=== PATIENT | male | born 1950 | race African-American/Black ===

== ENCOUNTER → 2019-10-20 10:35 | Outpatient (BNVA) | payer MEDICARE, MEDICAID, SELFPAY | PROVIDERS: Family Provider Internal Medicine; PCP Internal Medicine; Visit Provider Specialist | DX: G40.309 Generalized idiopathic epilepsy and epileptic syndromes, not intractable, without status epilepticus (principal); F17.220 Nicotine dependence, chewing tobacco, uncomplicated | CPT/HCPCS: 99212 ==

== ENCOUNTER → 2020-04-19 08:04 | Outpatient (BNVA) | payer MEDICARE, MEDICAID, SELFPAY | PROVIDERS: Family Provider Internal Medicine; PCP Internal Medicine; Visit Provider Specialist | DX: G40.309 Generalized idiopathic epilepsy and epileptic syndromes, not intractable, without status epilepticus (principal) | CPT/HCPCS: 99213 ==

== ENCOUNTER → 2020-10-18 09:15 | Outpatient (BNVA) | payer MEDICARE, MEDICAID, SELFPAY | PROVIDERS: Family Provider Internal Medicine; PCP Internal Medicine; Visit Provider Specialist | DX: G40.309 Generalized idiopathic epilepsy and epileptic syndromes, not intractable, without status epilepticus (principal); F17.220 Nicotine dependence, chewing tobacco, uncomplicated | CPT/HCPCS: 99213 ==

== ENCOUNTER → 2021-04-20 09:02 | Outpatient (BNVA) | payer MEDICARE, MEDICAID, SELFPAY | PROVIDERS: Family Provider Internal Medicine; PCP Internal Medicine; Visit Provider Specialist | DX: G40.309 Generalized idiopathic epilepsy and epileptic syndromes, not intractable, without status epilepticus (principal); F84.0 Autistic disorder | CPT/HCPCS: 99213; 99214 ==

== ENCOUNTER 2021-07-21 14:55 | Outpatient (CLI) | payer MEDICARE, MEDICAID, SELFPAY ==
--- NOTE | 2021-07-21 15:09 | XR_ITS ---
WS: [id number] XR chest 1V [id number] REASON FOR EXAM: Z20.1 - Contact with and (suspected) exposure to tubercul... FINDINGS: Significantly rotated positioning. Mild tortuosity thoracic aorta. Heart at the upper limits of normal. Calcified granulomatous disease in both hemithoraces. Infiltrative changes in the lung bases seen on 04/03/2019 have resolved. No new chest findings are angela ntified. XR/XR chest 1V [id number] IMPRESSION: No active pulmonary disease.
== END 2021-07-21 14:56 | disposition home or self-care (01) ==
PROVIDERS: PCP Internal Medicine; Visit Provider Internal Medicine
DX: Z20.1 Contact with and (suspected) exposure to tuberculosis (principal)
CPT/HCPCS: 71045

== ENCOUNTER → 2021-10-25 09:49 | Outpatient (BNVA) | payer MEDICARE, MEDICAID, SELFPAY | PROVIDERS: PCP Internal Medicine; Visit Provider Specialist | DX: G40.309 Generalized idiopathic epilepsy and epileptic syndromes, not intractable, without status epilepticus (principal); F84.0 Autistic disorder | CPT/HCPCS: 99213 ==

== ENCOUNTER → 2022-05-30 10:17 | Outpatient (BNVA) | payer MEDICARE, MEDICAID, SELFPAY | PROVIDERS: PCP Internal Medicine; Visit Provider Specialist | DX: G40.309 Generalized idiopathic epilepsy and epileptic syndromes, not intractable, without status epilepticus (principal) | CPT/HCPCS: 99213 ==

== ENCOUNTER 2022-08-09 09:34 | Outpatient (CLI) | payer MEDICARE, MEDICAID, SELFPAY ==
--- NOTE | 2022-08-09 | XR_ITS ---
WS: [id number] Exam: XR chest 2V* [id number] Date/Time of Exam: 08/09/2022 10:05 AM Reason For Exam: TB SCREENING Comparison 07/21/2021 and 04/03/2019 Chronic interstitial changes in the left lower lobe. No acute infiltrates are noted. The lungs are fu lly inflated. No pleural effusions. Cardiomediastinal silhouette is unremarkable for technique. Bony structures are intact. Slight dextroscoliosis of the T-spine. XR/XR chest 2V* [id number] IMPRESSION: 1. Chronic interstitial changes in the left lower lobe. 2. No acute cardiopulmonary finding.
== END 2022-08-09 09:35 | disposition home or self-care (01) ==
LOC: RAD 09:52
PROVIDERS: PCP Family Medicine; Visit Provider Family Medicine
DX: Z11.1 Encounter for screening for respiratory tuberculosis (principal)
CPT/HCPCS: 71046

== ENCOUNTER → 2022-12-05 10:43 | Outpatient (BNVA) | payer MEDICARE, MEDICAID, SELFPAY | PROVIDERS: PCP Family Medicine; Visit Provider Specialist | DX: G40.309 Generalized idiopathic epilepsy and epileptic syndromes, not intractable, without status epilepticus (principal) | CPT/HCPCS: 99213 ==

== ENCOUNTER → 2023-02-26 13:36 | Outpatient (BNVA) | payer MEDICARE, MEDICAID, SELFPAY | PROVIDERS: PCP Family Medicine; Visit Provider Podiatrist Foot & Ankle Surgery | DX: I73.9 Peripheral vascular disease, unspecified (principal); E11.42 Type 2 diabetes mellitus with diabetic polyneuropathy; L60.8 Other nail disorders; B35.1 Tinea unguium; G62.9 Polyneuropathy, unspecified | CPT/HCPCS: 11721; 99203 ==

== ENCOUNTER → 2023-05-07 08:41 | Outpatient (BNVA) | payer MEDICARE, MEDICAID, SELFPAY | PROVIDERS: PCP Family Medicine; Visit Provider Podiatrist Foot & Ankle Surgery | DX: E11.42 Type 2 diabetes mellitus with diabetic polyneuropathy (principal); B35.1 Tinea unguium; G62.9 Polyneuropathy, unspecified; I73.9 Peripheral vascular disease, unspecified | CPT/HCPCS: 11721 ==

== ENCOUNTER → 2023-07-09 09:00 | Outpatient (BNVA) | payer MEDICARE, MEDICAID, SELFPAY | PROVIDERS: PCP Family Medicine; Visit Provider Podiatrist Foot & Ankle Surgery | DX: B35.1 Tinea unguium (principal); G62.9 Polyneuropathy, unspecified; I73.9 Peripheral vascular disease, unspecified; E11.42 Type 2 diabetes mellitus with diabetic polyneuropathy | CPT/HCPCS: 11721 ==

== ENCOUNTER 2023-08-29 11:46 | Outpatient (CLI) | payer MEDICARE, MEDICAID, SELFPAY ==
[2023-08-29 12:26] LABS: Calcium 10.5 mg/dL (8.5-10.5)
[2023-08-29 12:33] LABS: Parathyroid Hormone 18.5 pg/mL (15-65)
== END 2023-08-29 11:47 | disposition home or self-care (01) ==
PROVIDERS: PCP Family Medicine; Visit Provider Internal Medicine Nephrology
DX: E83.52 Hypercalcemia (principal); I12.9 Hypertensive chronic kidney disease with stage 1 through stage 4 chronic kidney disease, or unspecified chronic kidney disease; N18.9 Chronic kidney disease, unspecified; D64.9 Anemia, unspecified; N39.0 Urinary tract infection, site not specified
CPT/HCPCS: 82310; 83970

== ENCOUNTER → 2023-09-17 08:46 | Outpatient (BNVA) | payer MEDICARE, MEDICAID, SELFPAY | PROVIDERS: PCP Family Medicine; Visit Provider Podiatrist Foot & Ankle Surgery | DX: B35.1 Tinea unguium (principal); G62.9 Polyneuropathy, unspecified; I73.9 Peripheral vascular disease, unspecified; E11.42 Type 2 diabetes mellitus with diabetic polyneuropathy | CPT/HCPCS: 11721 ==

== ENCOUNTER 2024-06-14 09:26 | Inpatient (IN) | payer MEDICARE, MEDICAID, SELFPAY ==
[2024-06-14] VITALS (45 sets, daily range): BP systolic 109–150; BP diastolic 52–90; PULSE 78–103; RESP 22–50; TEMP 37.3–37.4; O2SAT 67–97; BMI 27.8
--- NOTE | 2024-06-14 09:32 | XRR_ITS ---
PROCEDURE INFORMATION: Exam: XR Chest Exam date and time: 06/14/2024 9:54 AM Age: 74 years old Clinical indication: Cough and dyspnea; Additional info: Dyspnea/cough TECHNIQUE: Imaging protocol: Radiologic exam of the chest. Views: 1 view. COMPARISON: CR XR chest 2V* [id number] 08/09/2022 10:04 AM FINDINGS: Lungs: There is an area of dense consolidation involving the right upper lobe. Less dense consolidation involves the left lung base. Pleural spaces: Unremarkable. No pleural effusion. No pneumothorax. Heart/Mediastinum: Unremarkable. No cardiomegaly. Bones/joints: Unremarkable. XR/XR chest 1V portable [id number] IMPRESSION: Bilateral pneumonia
--- NOTE | 2024-06-14 09:56 | ED_ITS ---
HPI - SOB/Dyspnea 2 General: Chief Complaint: Shortness of Breath/Dyspnea Stated Complaint: SOB Time Seen by Provider: 06/14/24 09:32 History of Present Illness: HPI Narrative: 74-year-old [facility] patient lives in a custodial presenting short of breath for the last 2 to 3 days spiked a fever overnight he seemed to struggle with his breathing. Patient was brought in by EMS on their arrival he was hypoxic. Previously sats improved to 90% with increased 4 L and is satting in the mid 90s. 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 History from old records and from caregivers. He was potentially exposed to a patient with COVID as well. Associated symptoms: Reports chest congestion and fever(s); Deny abdominal pain Related Data Home Medications Medication Instructions Recorded Confirmed loperamide 1 mg/5 mL oral liquid 2 mg PO Q4H 10/20/19 03/15/24 neomycin-bacitracn Zn-polymyxn 3.5 1 applic topical ONCE PRN 10/20/19 03/15/24 mg-400 unit-5,000 unit top oint pkt (Neosporin([id number])) Previous Rx's Medication Instructions Recorded diphth,pertus(acell),tetanus 2.5 0.5 ml IM ONCE #0.5 mL 08/03/20 Lf unit-8 mcg-5 Lf/0.5 mL IM susp dextromethorphan-guaifenesin 10 See Rx Instructions .Route 10/30/22 mg-100 mg/5 mL oral syrup (Robafen .COMPLEX #1,000 mL DM Cough-Chest Congestion) dextromethorphan-guaifenesin 10 See Rx Instructions .Route 10/31/22 mg-100 mg/5 mL oral syrup (Robafen .COMPLEX #1,000 mL DM Cough-Chest Congestion) magnesium hydroxide 400 mg/5 mL See Rx Instructions .Route 11/09/22 oral suspension (Milk of Magnesia) .COMPLEX #3,000 mL aluminum-mag hydroxide-simethicone See Rx Instructions .Route 07/05/23 200 mg-200 mg-20 mg/5 mL oral susp .COMPLEX #355 mL (Devi-Lanta) lorazepam 1 mg tablet (Ativan) 1 mg sublingual Q6H PRN seizures 07/26/23 #10 tabs sertraline 50 mg tablet See Rx Instructions .Route 10/02/23 .COMPLEX #30 tabs magnesium oxide 400 mg (241.3 mg See Rx Instructions .Route 01/29/24 magnesium) tablet .COMPLEX #30 tabs calcitonin (salmon) 200 1 spray intranasal (ALT) DAILY 02/27/24 unit/actuation nasal spray #3.7 mL vit no.95-ferrous See Rx Instructions .Route 02/28/24 fumarate 28 mg-folic acid 800 mcg .COMPLEX #30 tabs tablet finasteride 5 mg tablet See Rx Instructions .Route 03/11/24 .COMPLEX #30 tabs loratadine 10 mg tablet See Rx Instructions .Route 03/11/24 .COMPLEX #30 tabs tamsulosin 0.4 mg capsule See Rx Instructions .Route 03/11/24 .COMPLEX #30 caps famotidine 40 mg tablet See Rx Instructions .Route 03/17/24 .COMPLEX #60 tabs levetiracetam 750 mg tablet See Rx Instructions .Route 03/17/24 .COMPLEX #60 tabs trazodone 50 mg tablet See Rx Instructions .Route 03/17/24 .COMPLEX #30 tabs atorvastatin 10 mg tablet See Rx Instructions .Route 03/24/24 .COMPLEX #30 tabs enalapril maleate 20 mg tablet See Rx Instructions .Route 03/24/24 .COMPLEX #60 tabs lamotrigine 200 mg tablet See Rx Instructions .Route 03/24/24 .COMPLEX #60 tabs nifedipine 90 mg tablet,extended See Rx Instructions .Route 04/25/24 release 24 hr .COMPLEX #90 tabs bismuth subsalicylate 262 mg/15 mL See Rx Instructions .Route 04/30/24 oral suspension .COMPLEX #236 mL acetaminophen 325 mg tablet See Rx Instructions .Route 06/10/24 .COMPLEX #120 tabs Allergies Allergy/AdvReac Type Severity Reaction Status Date / Time No Known Allergies Allergy Verified 09/17/23 08:55 Review of Systems 2 Const: Reports: fever(s), fatigue and malaise; Denies: chills Resp: Reports: dyspnea, non-productive cough, wheezing and chest congestion GI: Denies: abdominal pain : Denies: dysuria, urinary frequency or urinary urgency Musc: Denies: neck pain or back pain Skin/Breast: Denies: rash PFSH ED 2 PFSH: Medical History Epilepsy Bilateral deafness HTN (hypertension) Autistic disorder Social History Smoking and tobacco/nicotine status: never used tobacco/nicotine Alcohol intake: never Physical Exam 2 Const: ORIENTATION/CONSCIOUSNESS: Yes awake HENMT: COMMON NORMALS: normocephalic, atraumatic and hearing grossly normal bilaterally HEAD & SCALP: normocephalic and atraumatic Resp: COMMON NORMALS: normal respiratory effort, No retractions and No use of accessory muscles AUSCULTATION: rhonchi and wheezes (Scant) Cardio: COMMON NORMALS: regular rate, regular rhythm and No murmurs present (Cardio) RATE: regular rate RHYTHM: regular rhythm GI: COMMON NORMALS: Soft to palpation and No hepatosplenomegaly present A USCULTATION: Yes normoactive bowel sounds PALPATION: Yes Soft to palpation, No Tenderness to palpation present (GI), No Guarding due to palpation present (GI) and Yes No hepatosplenomegaly present Extremity: COMMON NORMALS: normal to inspection, capillary refill normal, no clubbing, cyanosis or edema, no calf tenderness and no pedal edema Skin: COMMON NORMALS: no rashes or lesions noted GENERAL SKIN EXAM: no rashes or lesions noted Course 2 Vital Signs: Vital signs: Vital Signs Temperature 99.3 F 06/14/24 09:29 Pulse Rate 84 06/14/24 13:45 Respiratory Rate 27 H 06/14/24 09:29 Blood Pressure 134/64 06/14/24 13:45 Pulse Oximetry 96 06/14/24 13:45 Oxygen Delivery Me thod Nasal Cannula 06/14/24 14:15 Oxygen Flow Rate 6 06/14/24 13:45 MDM - SOB/Dyspnea Medical Decision Making Right upper lobe left lower lobe pneumonia. Patient started on Zosyn cultures done respiratory panel did not show COVID or influenza. His white count is 11 6 he is oxygen dependent will admit for pneumonia with acute respiratory failure with hypoxia. Discussed with hospitalist orders written Medical Records I reviewed the patient's medical records. Lab Data I reviewed the patient's lab results. 06/14/24 10:34 06/14/24 10:34 Labs/Radiology: Radiology Impressions Chest X-Ray 06/14/24 09:32 IMPRESSION: Bilateral pneumonia Laboratory Results WBC 11.61 10^3/uL (3.29-11.43) H 06/14/24 10:34 RBC 3.98 10^6/uL (3.85-5.65) 06/14/24 10:34 Hgb 11.40 g/dL (11.27-16.99) 06/14/24 10:34 Hct 34.6 % (37-53) L 06/14/24 10:34 MCV 86.9 fl (82-101) 06/14/24 10:34 MCH 28.6 pg (27-33) 06/14/24 10:34 MCHC 32.9 g/dL (30-55) 06/14/24 10:34 RDW 13.4 % (12.1-15.1) 06/14/24 10:34 Plt Count 229 10^3/cmm (157-399) 06/14/24 10:34 MPV 9.0 fL (7.4-10.4) 06/14/24 10:34 Neut % (Auto) 85.4 % 06/14/24 10:34 Lymph % (Auto) 6.5 % 06/14/24 10:34 [place] % (Auto) 7.2 % 06/14/24 10:34 Eos % (Auto) 0.1 % 06/14/24 10:34 Baso % (Auto) 0.2 % 06/14/24 10:34 Neut # (Auto) 9.91 10^3/uL (1.8-7.7) H 06/14/24 10:34 Lymph # (Auto) 0.8 10^3/uL (0.8-4.8) 06/14/24 10:34 [place] # (Auto) 0.8 10^3/uL (0.2-0.9) 06/14/24 10:34 Eos # (Auto) 0.0 10^3/uL (0.0-0.8) 06/14/24 10:34 Baso # (Auto) 0.0 10^3/uL (0.0-0.1) 06/14/24 10:34 Nucleated RBC % (auto) 0 % 06/14/24 10:34 Nucleated RBCs # 0.0 /100WBC 06/14/24 10:34 Specimen Type Arterial 06/14/24 10:10 Sample Site Brachial, left 06/14/24 10:10 ABG pH 7.41 (7.35-7.45) 06/14/24 10:10 ABG pCO2 40.7 mmHg (35-45) 06/14/24 10:10 ABG pO2 54.9 mmHg (80.0-100.0) L 06/14/24 10:10 ABG PO2/FiO2 Ratio 171 06/14/24 10:10 ABG HCO3 25.8 mmol/L (22-26) 06/14/24 10:10 ABG O2 Saturation 89.3 06/14/24 10:10 ABG Base Excess 1.1 mmol/L (-2.0-2.0) 06/14/24 10:10 Dav Test Pos 06/14/24 10:10 A-a O2 Gradient 16.1 mmHg (5-10) H 06/14/24 10:10 Hematocrit 35.5 % (42-52) L 06/14/24 10:10 Hgb O2 Saturation 86.9 % (95-100) L 06/14/24 10:10 Carboxyhemoglobin 1.0 %THgb (0.4-20.1) 06/14/24 10:10 Methemoglobin 1.7 % (0.4-1.5) H 06/14/24 10:10 Total Hemoglobin 11.6 g/dL (14-18) L 06/14/24 10:10 Sodium 128.0 mmol/L (131-143) L 06/14/24 10:10 Potassium 4.7 mmol/L (3.5-5.0) 06/14/24 10:10 Glucose 313.0 mg/dL (70-115) H 06/14/24 10:10 Ionized Calcium 1.3 mmol/L (1.1-1.4) 06/14/24 10:10 O2 Delivery Device Nc 06/14/24 10:10 O2 Liters/Min 3.0 % 06/14/24 10:10 FiO2 32.0 % 06/14/24 10:10 Claims Supervisor ID Cak 06/14/24 10:10 Sodium 128 mmol/L (136-145) L 06/14/24 10:34 Potassium 5.0 mmol/L (3.5-5.1) 06/14/24 10:34 Chloride 92 mmol/L (98-107) L 06/14/24 10:34 Carbon Dioxide 21 mmol/L (22-29) L 06/14/24 10:34 Anion Gap 20.0 (5-19) H 06/14/24 10:34 BUN 18 mg/dL (8-23) 06/14/24 10:34 Creatinine 1.2 mg/dL (0.7-1.2) 06/14/24 10:34 GFR Calculation Not Reportable 06/14/24 10:34 Glucose 289 mg/dL (65-115) H 06/14/24 10:34 Calculated Osmolality 278 mOsm/kg (285-295) L 06/14/24 10:34 Lactic Acid 4.0 mmol/L (0.5-2.2) H 06/14/24 10:34 Calcium 9.4 mg/dL (8.5-10.5) 06/14/24 10:34 Total Bilirubin 0.6 mg/dL (0.15-1.2) 06/14/24 10:34 AST 23 U/L (0-40) 06/14/24 10:34 ALT 21 U/L (0-41) 06/14/24 10:34 Alkaline Phosphatase 194 U/L (40-130) H 06/14/24 10:34 Creatine Kinase 347 U/L (39-308) H* 06/14/24 10:34 Total Protein 7.3 g/dL (6.6-8.7) 06/14/24 10:34 Albumin 3.7 g/dL (3.5-5.2) 06/14/24 10:34 Globulin 3.6 g/dL (1.3-4.6) 06/14/24 10:34 Coronavirus 229E (PCR) Not detected (NOT DETECT) 06/14/24 10:17 Influenza Type A Ag negative (Negative) 06/14/24 10:17 Influenza Type B Ag negative (Negative) 06/14/24 10:17 SARS-CoV-2 (PCR) Not detected (NOT DETECT) 06/14/24 10:17 All radiology interpretation(s) finalized by discharge Discharge Plan Discharge Patient Disposition: Admitted As Inpatient Admit Provider: Salina Pepper Clinical Impression: Pneumonia, Acute hypoxic respiratory failure Condition: Stable Discharge Diet: Usual diet Discharge Activity: Resume usual activity Coding Level of Care Code ED 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
--- NOTE | 2024-06-14 10:06 | ECG_ITS ---
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 Measurements Intervals [place] Rate: 83 P: 19 PA: 171 QRS: -44 QRSD: 130 T: 76 QT: 356 QTc: 420 Interpretive Statements SINUS RHYTHM LEFT AXIS DEVIATION [QRS AXIS < -30] RIGHT BUNDLE BRANCH BLOCK [120+ ms QRS DURATION, UPRIGHT V1, 40+ ms S IN I/aVL/V4/V5/V6] LEFT VENTRICULAR HYPERTROPHY AND ST-T CHANGE [VOLTAGE CRITERIA PLUS ST/T ABNORMALITY] POSSIBLE SEPTAL MYOCARDIAL INFARCTION , OF INDETERMINATE AGE [30 ms Q WAVE IN V1/V2] Compared to ECG 01/20/2016 13:34:13 Left-axis deviation now present Left anterior fascicular block no longer present ST (T wave) deviation still present Electronically Signed On 06-14-2024 15:07:51 CDT by Ayden Boss M.D. [id number]
[2024-06-14] MEDS: dexamethasone 10 mg/mL INJ IM (10:15)
[2024-06-14 10:21] LABS: ABG PCO2 40.7 mmHg (35-45); ABG PH Result 7.41 (7.35-7.45); Alveolar-Arterial Oxygen Gradi 16.1 mmHg (5-10); Arterial Blood Gas Hematocrit 35.5 % (42-52); Base Excess ABG 1.1 mmol/L (-2.0-2.0); Blood Gas Allen Test Pos; Blood Gas Operator Identificat CAK; Blood Gas Sample Site Brachial, left; Blood Gas Sample Type Arterial; HCO3 ABG 25.8 mmol/L (22-26); HGB O2 Sat 86.9 % (95-100); Ionized Calcium Level - ABG 1.3 mmol/L (1.1-1.4); Methemoglobin 1.7 % (0.4-1.5); Oxygen Device NC; Oxygen Saturation ABG 89.3; PO2 ABG 54.9 mmHg (80.0-100.0); PO2 FiO2 Ratio Arterial Blood 171; Potassium Level - ABG 4.7 mmol/L (3.5-5.0); Total Hemoglobin 11.6 g/dL (14-18)
[2024-06-14 10:45] LABS: Influenza A by IFA negative (Negative); Influenza B by IFA negative (Negative)
[2024-06-14 10:46] LABS: Basophils % 0.2 %; Eosinophils % 0.1 %; Hematocrit 34.6 % (37-53); Lymphocytes # 0.8 10^3/uL (0.8-4.8); Lymphocytes % 6.5 %; Mean Corpuscular HGB Conc 32.9 g/dL (30-55); Mean Corpuscular Hemoglobin 28.6 pg (27-33); Mean Corpuscular Volume 86.9 fl (82-101); Monocytes # 0.8 10^3/uL (0.2-0.9); Monocytes % 7.2 %; Neutrophils # 9.91 10^3/uL (1.8-7.7); Neutrophils % 85.4 %; Nucleated Red Blood Cells % 0 %; Platelet Count 229 10^3/cmm (157-399); Red Blood Count 3.98 10^6/uL (3.85-5.65); Red Cell Distribution Width 13.4 % (12.1-15.1); White Blood Count 11.61 10^3/uL (3.29-11.43)
[2024-06-14 11:09] LABS: Alanine Aminotransferase 21 U/L (0-41); Albumin Level 3.7 g/dL (3.5-5.2); Alkaline Phosphatase 194 U/L (40-130); Aspartate Amino Transferase 23 U/L (0-40); Blood Urea Nitrogen 18 mg/dL (8-23); Calcium 9.4 mg/dL (8.5-10.5); Carbon Dioxide 21 mmol/L (22-29); Chloride 92 mmol/L (98-107); Globulin 3.6 g/dL (1.3-4.6); Glucose 289 mg/dL (65-115); Osmolality Calculated 278 mOsm/kg (285-295); Sodium 128 mmol/L (136-145); Total Bilirubin 0.6 mg/dL (0.15-1.2); Total Protein 7.3 g/dL (6.6-8.7)
[2024-06-14] MEDS: piperacillin-tazobactam 3.375 GM in sodium chloride 0.9% (plus) 50 ML IV ×2 (11:18→17:01)
[2024-06-14 11:25] LABS: Creatine Phosphokinase 347 U/L (39-308)
[2024-06-14 12:20] LABS: Adenovirus Not Detected (NOT DETECT); Chlamydia Pneumoniae Not Detected (NOT DETECT); Coronavirus 229E,HKU1,NL63,OC4 Not Detected (NOT DETECT); Human Metapneumovirus Not Detected (NOT DETECT); Human Rhinovirus/Enterovirus Detected (NOT DETECT); Influenza A Not Detected (NOT DETECT); Influenza A H1 Not Detected (NOT DETECT); Influenza A H1-2009 Not Detected (NOT DETECT); Influenza A H3 Not Detected (NOT DETECT); Influenza B Not Detected (NOT DETECT); Mycoplasma Pneumoniae Not Detected (NOT DETECT); Parainfluenza Virus Type 1 Not Detected (NOT DETECT); Parainfluenza Virus Type 2 Not Detected (NOT DETECT); Parainfluenza Virus Type 3 Not Detected (NOT DETECT); Parainfluenza Virus Type 4 Not Detected (NOT DETECT); Respiratory Syncytial Virus A Not Detected (NOT DETECT); Respiratory Syncytial Virus B Not Detected (NOT DETECT); SARS-COV-2 Not Detected (NOT DETECT)
[2024-06-14 12:31] LABS: Reflex Lactate Order REFLEX LACTIC ORDERD
[2024-06-14 13:32] LABS: Human Metapneumovirus Not Detected (NOT DETECT); Human Rhinovirus/Enterovirus Detected (NOT DETECT); Results from Genmark
[2024-06-14 13:58] LABS: Lactic Acid level (Lactate) 1.7 mmol/L (0.5-2.2)
--- NOTE | 2024-06-14 14:47 | PC.NURSE ---
recieved from er deaf and mute ,on gertrude becomes agitated when attempt to move to bed or remove clothes not follow any commands at this time transfered on to bed scd not applied as pt more restless agitated attempt to put on , no dentures but understand from jail does feed himself ground meat mech soft. area forhead abrasion from fall some point in jail sitter positioned outside door to provide saftey with limited communication
[2024-06-14 14:50] LABS: Procalcitonin 5.62 ng/mL (0-0.5)
--- NOTE | 2024-06-14 15:18 | P.HP_ITS ---
Providers/Chief Complaint 2 Admitting Physician: Salina Pepper MD Primary Care Provider: Ant Cantor DO Chief Complaint: SOB History of Present Illness Lito Trivedi is a 74 year old male With past medical history of epilepsy, bilateral deafness, mute, autistic disorder presented to the hospital today accompanied by caregiver from long term. He has been short of breath last few days and has had a fever overnight. He was saturating 90% on 4 L on arrival. He is unable to communicate. History obtained from ER note and previous charts. Patient was a exposed to a patient with COVID as well. White count 11.6. Respiratory culture obtained. Lactic acid 4. Patient given Zosyn. He will be admitted to ICU at this time. Medications/Allergies Home Medications Medication Instructions Recorded Confirmed Last Taken Type loperamide 1 mg/5 mL oral liquid 2 mg PO Q4H 10/20/19 03/15/24 Unknown History neomycin-bacitracn Zn-polymyxn 3.5 1 applic topical ONCE PRN 10/20/19 03/15/24 Unknown History mg-400 unit-5,000 unit top oint pkt (Neosporin([id number])) diphth,pertus(acell),tetanus 2.5 0.5 ml IM ONCE #0.5 mL 08/03/20 03/15/24 Unknown Rx Lf unit-8 mcg-5 Lf/0.5 mL IM susp dextromethorphan-guaifenesin 10 See Rx Instructions .Route 10/30/22 03/15/24 Unknown Rx mg-100 mg/5 mL oral syrup (Robafen .COMPLEX #1,000 mL DM Cough-Chest Congestion) dextromethorphan-guaifenesin 10 See Rx Instructions .Route 10/31/22 03/15/24 Unknown Rx mg-100 mg/5 mL oral syrup (Robafen .COMPLEX #1,000 mL DM Cough-Chest Congestion) magnesium hydroxide 400 mg/5 mL See Rx Instructions .Route 11/09/22 03/15/24 Unknown Rx oral suspension (Milk of Magnesia) .COMPLEX #3,000 mL aluminum-mag hydroxide-simethicone See Rx Instructions .Route 07/05/23 03/15/24 Unknown Rx 200 mg-200 mg-20 mg/5 mL oral susp .COMPLEX #355 mL (Devi-Lanta) lorazepam 1 mg tablet (Ativan) 1 mg sublingual Q6H PRN seizures 07/26/23 03/15/24 Unknown Rx #10 tabs sertraline 50 mg tablet See Rx Instructions .Route 10/02/23 03/15/24 Unknown Rx .COMPLEX #30 tabs magnesium oxide 400 mg (241.3 mg See Rx Instructions .Route 01/29/24 03/15/24 Unknown Rx magnesium) tablet .COMPLEX #30 tabs calcitonin (salmon) 200 1 spray intranasal (ALT) DAILY 02/27/24 03/15/24 Unknown Rx unit/actuation nasal spray #3.7 mL vit no.95-ferrous See Rx Instructions .Route 02/28/24 03/15/24 Unknown Rx fumarate 28 mg-folic acid 800 mcg .COMPLEX #30 tabs tablet finasteride 5 mg tablet See Rx Instructions .Route 03/11/24 03/15/24 Unknown Rx .COMPLEX #30 tabs loratadine 10 mg tablet See Rx Instructions .Route 03/11/24 03/15/24 Unknown Rx .COMPLEX #30 tabs tamsulosin 0.4 mg capsule See Rx Instructions .Route 03/11/24 03/15/24 Unknown Rx .COMPLEX #30 caps famotidine 40 mg tablet See Rx Instructions .Route 03/17/24 Unknown Rx .COMPLEX #60 tabs levetiracetam 750 mg tablet See Rx Instructions .Route 03/17/24 Unknown Rx .COMPLEX #60 tabs trazodone 50 mg tablet See Rx Instructions .Route 03/17/24 Unknown Rx .COMPLEX #30 tabs atorvastatin 10 mg tablet See Rx Instructions .Route 03/24/24 Unknown Rx .COMPLEX #30 tabs enalapril maleate 20 mg tablet See Rx Instructions .Route 03/24/24 Unknown Rx .COMPLEX #60 tabs lamotrigine 200 mg tablet See Rx Instructions .Route 03/24/24 Unknown Rx .COMPLEX #60 tabs nifedipine 90 mg tablet,extended See Rx Instructions .Route 04/25/24 Unknown Rx release 24 hr .COMPLEX #90 tabs bismuth subsalicylate 262 mg/15 mL See Rx Instructions .Route 04/30/24 Unknown Rx oral suspension .COMPLEX #236 mL acetaminophen 325 mg tablet See Rx Instructions .Route 06/10/24 Unknown Rx .COMPLEX #120 tabs Allergies Allergy/AdvReac Type Severity Reaction Status Date / Time No Known Allergies Allergy Verified 09/17/23 08:55 PFSH Acute 2 PFSH: Medical History Epilepsy Bilateral deafness HTN (hypertension) Autistic disorder Social History Smoking and tobacco/nicotine status: never used tobacco/nicotine Alcohol intake: never Vitals/I&O/Wt Last Vital Signs Temp 99.3 F 06/14/24 14:30 Pulse 79 06/14/24 14:32 Resp 40 H 06/14/24 14:30 BP 134/64 06/14/24 14:32 Pulse Ox 94 06/14/24 14:30 O2 Del Method Nasal Cannula 06/14/24 14:15 O2 Flow Rate 6 06/14/24 13:45 Weight last 48 hrs Weight 69.003 kg Physical Exam 2 Narrative: General: Alert, sitting up in bed in ICU room 10 RN at bedside. Patient appears scared from hospital environment. HEENT: Normocephalic, atraumatic, EOMI, breathing on 6 L nasal cannula. Cardio: Regular rate rhythm, normal S1-S2, Respiratory: Ronchi b/l lung roberts GI: Abdomen soft, nontender, nondistended, bowel sounds + Extremities: no edema, no cyanosis Data 06/14/24 10:34 06/14/24 10:34 A&P Assessment and plan (1) HTN (hypertension): Qualifiers: Hypertension type: primary hypertension Qualified Code(s): I10 - Essential (primary) hypertension (2) Bilateral deafness: (3) Autistic disorder: (4) Generalized epilepsy: (5) Pneumonia: (6) Acute hypoxic respiratory failure: (7) Lives in assisted living facility: Plan #Bilateral pneumonia #Shortness of breath, fever secondary to above, meets sepsis criteria #Hyponatremia #Enterra rhinovirus positive #Autism #Bilateral deafness, mute #Epilepsy #Diabetes mellitus? ? Hyponatremia: Check urine sodium, serum, urine osmolality. Most likely medication induced. Patient is on epileptic medications. ? Lactic acid 4.0. Patient received IV fluids in hospital ER. Will continue on normal saline 100 cc/h ? X-ray shows bilateral pneumonia. Check sputum Gram stain culture, blood cultures, bacterial, Legionella antigens ? Enterra rhinovirus positive. Will place on Solu-Medrol 40 IV twice daily ? Confirm home medications ? Continue on Keppra, sertraline, tamsulosin, lamotrigine ? Will continue rest of medications after reviewing accurate medication list. ? Check CBC CMP in a.m. ? Check procalcitonin ? Cardiac diet ? May use BiPAP if needed. Continue to wean down oxygen as able ? DuoNeb every 6 hours as needed Full code DVT prophylaxis heparin to be twice daily Attestations 2 Medical Necessity Statement*: Requires hospitalization for bilateral pneumonia management. Diagnoses Primary hypertension I10 Hypertension type: primary hypertension Bilateral deafness H91.93 Autistic disorder F84.0 Generalized epilepsy G40.309 Pneumonia J18.9 Acute hypoxic respiratory failure J96.01 Lives in assisted living facility Z59.3
--- NOTE | 2024-06-14 15:19 | PC.NURSE ---
pt got up by self sitter at bedside intervene somewhat agitated and unsteady on feet ,, to bedside commode unable to communicate with staff not voided at this time... back to bed
[2024-06-14] MEDS: vancomycin 1,000 MG in sodium chloride 0.9% 250 ML 250 MG IV (15:43)
[2024-06-14] MEDS: heparin 5,000 unit/mL INJ 1 mL 5000 UNIT SUBCUT (15:44)
--- NOTE | 2024-06-14 15:52 | PC.NURSE ---
up out of bed tore out iv site going to window attempt to get outside voided small amt specimen to lab . assist back to bed with 3 people ,, resarted iv in left hand ns infulsing at this time
[2024-06-14 16:03] LABS: Charge for UA Resulting for Rev
[2024-06-14 16:08] LABS: Bilirubin Urine Negative (Negative); Blood Urine Negative (Negative); Glucose Urine UA Negative (Normal); Ketones Urine Trace (Negative); Leukocyte Esterase Urine Negative (Negative); Nitrate Urine Negative (Negative); Protein Urine 1+ (Negative); Urine Appearance Clear (CLEAR); Urine Color Dark Yellow (Yellow)
[2024-06-14 16:12] LABS: Bacteria Urine None Seen /hpf; Hyaline Casts Urine 0.81 /lpf; RBC Urine 0-2 /hpf (0-2); Squamous Epithelial Cell Urine 0-5 /hpf (0-5); WBC Urine 0-5 /hpf (0-5)
[2024-06-14 16:17] LABS: Specific Gravity, Urine 1.032 (1.005-1.030)
[2024-06-14 16:43] LABS: Urine Random Sodium 10 mmol/L
[2024-06-14] MEDS: sodium chloride 0.9% 1,000 ML 100 ML IV ×2 (16:59→21:49)
[2024-06-14] MEDS: lamoTRIgine 100 mg Tablet 200 MG PO (17:02)
[2024-06-14] MEDS: levETIRAcetam 500 mg Tablet 750 MG PO (17:02)
--- NOTE | 2024-06-14 17:42 | PC.NURSE ---
spontaneous response up out of bed pulling out ivs restless and appears somewhat scared sat with pt holding hand started feeding soft food at this time
[2024-06-14] MEDS: OLANZapine 10 mg VIAL 5 MG IM (18:05)
[2024-06-14] MEDS: water for injection-sterile 10 ML 100 ML (18:56)
[2024-06-14] MEDS: ipratropium-albuterol 3 mL Neb INHALATION (19:49)
[2024-06-14] MEDS: tamsulosin 0.4 mg Capsule PO (21:48)
[2024-06-15] VITALS (53 sets, daily range): BP systolic 97–173; BP diastolic 47–93; PULSE 70–104; RESP 20–53; TEMP 36.4–38.6; O2SAT 86–100
[2024-06-15] MEDS: piperacillin-tazobactam 3.375 GM in sodium chloride 0.9% (plus) 50 ML IV ×3 (00:53→16:35)
[2024-06-15] MEDS: heparin 5,000 unit/mL INJ 1 mL 5000 UNIT SUBCUT ×2 (01:16→14:23)
[2024-06-15] MEDS: LORazepam 2 mg/mL INJ 1 mL 1 MG IVP (03:19)
[2024-06-15] MEDS: haloperidol inj 5 mg/mL INJ 1 mL IVP (04:16)
[2024-06-15] MEDS: HYDROmorphone 1 mg/mL INJ 1 mL 0.4 MG IVP (04:36)
[2024-06-15] MEDS: dexmedeTOMIDine 0.9 % NaCL 400 MCG/100 ML PREMIX IV ×2 (05:42→23:37)
[2024-06-15 07:06] LABS: Basophils % 0.1 %; Hematocrit 31.7 % (37-53); Lymphocytes # 0.6 10^3/uL (0.8-4.8); Mean Corpuscular HGB Conc 33.1 g/dL (30-55); Mean Corpuscular Hemoglobin 28.8 pg (27-33); Mean Corpuscular Volume 87.1 fl (82-101); Monocytes # 0.9 10^3/uL (0.2-0.9); Monocytes % 9.2 %; Neutrophils # 8.54 10^3/uL (1.8-7.7); Neutrophils % 84.2 %; Nucleated Red Blood Cells % 0 %; Platelet Count 242 10^3/cmm (157-399); Red Blood Count 3.64 10^6/uL (3.85-5.65); Red Cell Distribution Width 13.7 % (12.1-15.1); White Blood Count 10.14 10^3/uL (3.29-11.43)
[2024-06-15 07:21] LABS: Alanine Aminotransferase 17 U/L (0-41); Albumin Level 3.2 g/dL (3.5-5.2); Alkaline Phosphatase 169 U/L (40-130); Anion Gap 20.2 (5-19); Aspartate Amino Transferase 21 U/L (0-40); Blood Urea Nitrogen 13 mg/dL (8-23); Calcium 8.7 mg/dL (8.5-10.5); Carbon Dioxide 20 mmol/L (22-29); Chloride 98 mmol/L (98-107); Creatinine Clr Calc Pharmacy 64.5309; Globulin 3.7 g/dL (1.3-4.6); Glucose 103 mg/dL (65-115); Magnesium 2.1 mg/dL (1.7-2.3); Osmolality Calculated 278 mOsm/kg (285-295); Potassium 4.2 mmol/L (3.5-5.1); Sodium 134 mmol/L (136-145); Total Bilirubin 0.3 mg/dL (0.15-1.2); Total Protein 6.9 g/dL (6.6-8.7)
[2024-06-15] MEDS: ipratropium-albuterol 3 mL Neb INHALATION (07:25)
[2024-06-15] MEDS: nicotine 21 mg Patch 1 PATCH TRANSDERMA (10:10)
[2024-06-15] MEDS: sertraline 50 mg Tablet PO (10:12)
[2024-06-15] MEDS: levETIRAcetam 500 mg Tablet 750 MG PO ×2 (10:12→18:09)
--- NOTE | 2024-06-15 10:27 | PC.NURSE ---
1000 Decreased Presdex to 0.1 and shortly patient became very agitated trying to get out of bed, pulling at covers and anything he could reach. Three personell kept him in the bed, changed wet depends, repositioned patient, tryed to reassure and comfort patient while turning Presedex back up to 0.2. Lab was here, did blood draw with assistance. Patient relaxing back down. Was able to sit patient up at 90 degrees and gave a few small bites of pudding which he took, occasionally coughing with or without taking anything orally. Did get him to take Keppra and Zoloft po meds, but difficult getting them swallowed, but did after several bites of pudding. Refused any further po meds.
[2024-06-15 10:33] LABS: Basophils % 0.2 %; Hematocrit 34.9 % (37-53); Lymphocytes # 1.3 10^3/uL (0.8-4.8); Lymphocytes % 10.1 %; Mean Corpuscular Hemoglobin 28.5 pg (27-33); Mean Corpuscular Volume 86.4 fl (82-101); Mean Platelet Volume 9.2 fL (7.4-10.4); Monocytes # 1.3 10^3/uL (0.2-0.9); Monocytes % 9.7 %; Neutrophils # 10.53 10^3/uL (1.8-7.7); Neutrophils % 79.4 %; Nucleated Red Blood Cells % 0 %; Platelet Count 289 10^3/cmm (157-399); Red Blood Count 4.04 10^6/uL (3.85-5.65); Red Cell Distribution Width 13.7 % (12.1-15.1); White Blood Count 13.26 10^3/uL (3.29-11.43)
--- NOTE | 2024-06-15 13:16 | P.PN_ITS ---
Subjective 2 Subjective: seen today Patient is autistic and has been very scared in the hospital environment. He is to try to get out of bed as well. Currently on a Precedex drip. He appears calm at this time. Currently sleeping. Due to the nature of his intellectual disability have decided not to wake him up. Nursing staff have reported otherwise he is doing okay. Still requiring 6 L of nasal cannula. Vitals are stable. Vitals/I&O/Wt Last Vital Signs Temp 98.6 F 06/15/24 12:00 Pulse 74 06/15/24 12:00 Resp 24 H 06/15/24 12:00 BP 120/65 06/15/24 12:00 Pulse Ox 96 06/15/24 12:00 O2 Del Method High Flow Nasal Cannula 06/15/24 07:31 O2 Flow Rate 6 06/15/24 07:31 06/14/24 06/15/24 06/15/24 22:59 06:59 14:59 Intake Total 3240 / 3240 698.444 / 3938.444 12.127 / 12.127 Output Total 400 / 400 200 / 600 Balance 2840 / 2840 498.444 / 3338.444 12.127 / 12.127 Weight last 48 hrs Weight 76.494 kg Weight 69.003 kg Physical Exam 2 Narrative: General: Alert, sitting up in bed in ICU room 10 RN at bedside. HEENT: Normocephalic, atraumatic, EOMI, breathing on 6 L nasal cannula. Cardio: Regular rate rhythm, normal S1-S2, Respiratory: Ronchi b/l lung roberts GI: Abdomen soft, nontender, nondistended, bowel sounds + Extremities: no edema, no cyanosis Data 06/15/24 10:14 06/15/24 06:58 Micro: Microbiology 06/14/24 15:35 Legionella Urinary Antigen - Final Urine,Voided Bacterial Antigens - Final 06/14/24 10:34 Blood Culture - Preliminary Blood SPECIMEN COLLECTED 06/14/24 15:12 Blood Culture - Preliminary Blood SPECIMEN COLLECTED A&P Assessment and plan (1) HTN (hypertension): Qualifiers: Hypertension type: primary hypertension Qualified Code(s): I10 - Essential (primary) hypertension (2) Bilateral deafness: (3) Autistic disorder: (4) Generalized epilepsy: (5) Pneumonia: (6) Acute hypoxic respiratory failure: (7) Lives in assisted living facility: Plan #Bilateral pneumonia #Shortness of breath, fever secondary to above, meets sepsis criteria #Hyponatremia #Enterra rhinovirus positive #Autism #Bilateral deafness, mute #Epilepsy #Diabetes mellitus? ? Hyponatremia: Check urine sodium, serum, urine osmolality. Most likely medication induced. Patient is on epileptic medications. ? Lactic acid 4.0. Patient received IV fluids in hospital ER. Will continue on normal saline 100 cc/h ? X-ray shows bilateral pneumonia. Check sputum Gram stain culture, blood cultures, bacterial, Legionella antigens ? Enterra rhinovirus positive. Will place on Solu-Medrol 40 IV twice daily ? Confirm home medications ? Continue on Keppra, sertraline, tamsulosin, lamotrigine ? Check CBC CMP in a.m. ? Check procalcitonin ? Cardiac diet ? May use BiPAP if needed. Continue to wean down oxygen as able ? DuoNeb every 6 hours as needed Full code DVT prophylaxis heparin to be twice daily 06/15 Patient's home medications have not been confirmed yet. Will call [facility] and confirm the medications. ? Continue management as per H&P at this time. Continue antibiotics vancomycin and Zosyn. Await sputum culture Wean off Precedex drip as able. ? May use Zyprexa if needed. Attestations 2 Medical Necessity Statement*: Requires hospitalization for bilateral pneumonia management. Coding Level of Care Code Acute Code for Chg Fwd Diagnoses Primary hypertension I10 Hypertension type: primary hypertension Bilateral deafness H91.93 Autistic disorder F84.0 Generalized epilepsy G40.309 Pneumonia J18.9 Acute hypoxic respiratory failure J96.01 Lives in assisted living facility Z59.3
--- NOTE | 2024-06-15 13:48 | PHA.VACGOAL ---
Vancomycin Goal - Goal Vancomycin Indication:: Pneumonia - Therapy Current therapy:: Pip/Tazo Day of therpy:: Day []of [] . Actual body weight (kg): 168 lb 10.246 oz - Data Labs: WBC 13.26 10^3/uL (3.29-11.43) H 06/15/24 10:14 RBC 4.04 10^6/uL (3.85-5.65) 06/15/24 10:14 Hgb 11.50 g/dL (11.27-16.99) 06/15/24 10:14 Hct 34.9 % (37-53) L 06/15/24 10:14 MCV 86.4 fl (82-101) 06/15/24 10:14 MCH 28.5 pg (27-33) 06/15/24 10:14 MCHC 33.0 g/dL (30-55) 06/15/24 10:14 RDW 13.7 % (12.1-15.1) 06/15/24 10:14 Sodium 134 mmol/L (136-145) L 06/15/24 06:58 Potassium 4.2 mmol/L (3.5-5.1) 06/15/24 06:58 Chloride 98 mmol/L (98-107) 06/15/24 06:58 Carbon Dioxide 20 mmol/L (22-29) L 06/15/24 06:58 Anion Gap 20.2 (5-19) H 06/15/24 06:58 BUN 13 mg/dL (8-23) 06/15/24 06:58 Creatinine 0.9 mg/dL (0.7-1.2) 06/15/24 06:58 GFR Calculation Not Reportable 06/15/24 06:58 Last dialysis session:: N/A Treatment plan:: new consult Regimen:: 1000 MG Q24H
--- NOTE | 2024-06-15 14:09 | PC.NURSE ---
1400 Patient awoke, starting trying to get out of bed pulling at anything he could reach. Turned Presedex to 0.3, changed wet depends. Repositioned. Coarse nonproductive cough very frequent while trying to move around and get up. 1410 Patient starting to setteled back down with comforting pats and reassurance and sitter at bedside.
[2024-06-15] MEDS: vancomycin 1,000 MG in sodium chloride 0.9% 250 ML 250 MG IV (14:31)
[2024-06-15] MEDS: lamoTRIgine 100 mg Tablet 200 MG PO (18:09)
--- NOTE | 2024-06-15 18:16 | PC.NURSE ---
1814 Awake and squirming around in bed, changed depends, and he helps raise his butt to get off and on. Then took pudding and meds in pudding. Resp does get more rapid after moving around in bed, but then settled back down.
[2024-06-15] MEDS: tamsulosin 0.4 mg Capsule PO (21:24)
[2024-06-15] MEDS: acetaminophen 325 mg Tablet 650 MG PO (23:36)
[2024-06-16] VITALS (47 sets, daily range): BP systolic 102–176; BP diastolic 48–102; PULSE 54–91; RESP 15–44; TEMP 36.6–38.5; O2SAT 88–100
[2024-06-16] MEDS: ketorolac 30 mg/mL INJ 15 MG IVP (00:06)
[2024-06-16] MEDS: piperacillin-tazobactam 3.375 GM in sodium chloride 0.9% (plus) 50 ML IV ×3 (00:34→16:30)
[2024-06-16] MEDS: heparin 5,000 unit/mL INJ 1 mL 5000 UNIT SUBCUT ×2 (02:36→15:24)
[2024-06-16 05:22] LABS: Blood Urea Nitrogen 15 mg/dL (8-23); Calcium 8.4 mg/dL (8.5-10.5); Carbon Dioxide 25 mmol/L (22-29); Chloride 99 mmol/L (98-107); Creatinine Clr Calc Pharmacy 48.7833; Glucose 102 mg/dL (65-115); Magnesium 2.3 mg/dL (1.7-2.3); Osmolality Calculated 281 mOsm/kg (285-295); Sodium 135 mmol/L (136-145)
--- NOTE | 2024-06-16 06:58 | PC.NURSE ---
Spiked temp up to 101.4 this pm. Tyenol and toradol given as ordered. Patient on precedex increased then placed on bipap at 40% fio2 to keep o2 saturation above 92 as desaturation to 84 this pm with increased respiratory rate 44. Dr. Choi notified. Able to ween back to high flow nc at 7 L this am
[2024-06-16] MEDS: ipratropium-albuterol 3 mL Neb INHALATION (07:51)
[2024-06-16] MEDS: levETIRAcetam 500 mg Tablet 750 MG PO ×2 (08:29→17:56)
[2024-06-16] MEDS: lamoTRIgine 100 mg Tablet 200 MG PO ×2 (08:30→17:56)
[2024-06-16] MEDS: pantoprazole DR 40 mg Tablet PO (08:30)
[2024-06-16] MEDS: sertraline 50 mg Tablet PO (08:30)
[2024-06-16] MEDS: atorvastatin 40 mg Tablet 10 MG PO (08:30)
[2024-06-16] MEDS: nicotine 21 mg Patch 1 PATCH TRANSDERMA (08:30)
--- NOTE | 2024-06-16 08:37 | P.PN_ITS ---
Subjective 2 Subjective: seen today no acute events overnight pt is off precedex cough sounds better on 4L NC at this time Vitals/I&O/Wt Last Vital Signs Temp 97.9 F 06/16/24 05:00 Pulse 66 06/16/24 07:58 Resp 18 06/16/24 07:56 BP 129/54 06/16/24 06:00 Pulse Ox 94 06/16/24 07:56 O2 Del Method High Flow Nasal Cannula 06/16/24 07:56 O2 Flow Rate 4 06/16/24 07:56 FiO2 40 06/16/24 00:00 06/15/24 06/16/24 06/16/24 22:59 06:59 14:59 Intake Total 301.025 / 363.952 93.321 / 457.273 Balance 301.025 / 363.952 93.321 / 457.273 Weight last 48 hrs Weight 64.45 kg Weight 76.494 kg Weight 69.003 kg Physical Exam 2 Narrative: General: Alert, sitting up in bed in ICU room 10, sitter at bedside HEENT: Normocephalic, atraumatic, EOMI, breathing on 4 L nasal cannula. Cardio: Regular rate rhythm, normal S1-S2, Respiratory: Ronchi b/l lung roberts GI: Abdomen soft, nontender, nondistended, bowel sounds + Extremities: no edema, no cyanosis Data 06/16/24 04:50 06/16/24 04:50 Micro: Microbiology 06/14/24 10:34 Blood Culture - Preliminary Blood NEGATIVE TO DATE 06/14/24 15:12 Blood Culture - Preliminary Blood NEGATIVE TO DATE A&P Assessment and plan (1) HTN (hypertension): Qualifiers: Hypertension type: primary hypertension Qualified Code(s): I10 - Essential (primary) hypertension (2) Bilateral deafness: (3) Autistic disorder: (4) Generalized epilepsy: (5) Pneumonia: (6) Acute hypoxic respiratory failure: (7) Lives in assisted living facility: Plan #Bilateral pneumonia #Shortness of breath, fever secondary to above, meets sepsis criteria #Hyponatremia #Enterra rhinovirus positive #Autism #Bilateral deafness, mute #Epilepsy #Diabetes mellitus? ? Hyponatremia: Check urine sodium, serum, urine osmolality. Most likely medication induced. Patient is on epileptic medications. ? Lactic acid 4.0. Patient received IV fluids in hospital ER. Will continue on normal saline 100 cc/h ? X-ray shows bilateral pneumonia. Check sputum Gram stain culture, blood cultures, bacterial, Legionella antigens ? Enterra rhinovirus positive. Will place on Solu-Medrol 40 IV twice daily ? Confirm home medications ? Continue on Keppra, sertraline, tamsulosin, lamotrigine ? Check CBC CMP in a.m. ? Check procalcitonin ? Cardiac diet ? May use BiPAP if needed. Continue to wean down oxygen as able ? DuoNeb every 6 hours as needed Full code DVT prophylaxis heparin to be twice daily 06/16 Patient's home medications have not been confirmed yet. Request RN to call [facility] to confirm meds. ? Continue management as per H&P at this time. Continue antibiotics vancomycin and Zosyn. Await sputum culture precedex off ? May use Zyprexa if needed. Attestations 2 Medical Necessity Statement*: Requires hospitalization for bilateral pneumonia management. Diagnoses Primary hypertension I10 Hypertension type: primary hypertension Bilateral deafness H91.93 Autistic disorder F84.0 Generalized epilepsy G40.309 Pneumonia J18.9 Acute hypoxic respiratory failure J96.01 Lives in assisted living facility Z59.3
[2024-06-16 10:26] LABS: Basophils % 0.2 %; Eosinophils % 0.1 %; Hematocrit 35.5 % (37-53); Lymphocytes # 1.2 10^3/uL (0.8-4.8); Lymphocytes % 12.3 %; Mean Corpuscular Hemoglobin 28.4 pg (27-33); Mean Corpuscular Volume 86.2 fl (82-101); Mean Platelet Volume 9.8 fL (7.4-10.4); Monocytes # 1.2 10^3/uL (0.2-0.9); Monocytes % 11.5 %; Neutrophils # 7.66 10^3/uL (1.8-7.7); Neutrophils % 75.7 %; Nucleated Red Blood Cells % 0 %; Platelet Count 344 10^3/cmm (157-399); Red Blood Count 4.12 10^6/uL (3.85-5.65); Red Cell Distribution Width 13.6 % (12.1-15.1); White Blood Count 10.11 10^3/uL (3.29-11.43)
--- NOTE | 2024-06-16 13:14 | PC.SOCIAL ---
IMM update Pg. 2 of IMM updated and copy left in room.
[2024-06-16] MEDS: vancomycin 1,000 MG in sodium chloride 0.9% 250 ML 250 MG IV (15:47)
--- NOTE | 2024-06-16 16:11 | PC.NURSE ---
Temperature at [address] Pepper notifed. Orders for IV tylenol given
[2024-06-16] MEDS: acetaminophen 1,000 MG/100 ML PIGGYBACK 400 MG IV (16:30)
[2024-06-16] MEDS: tamsulosin 0.4 mg Capsule PO (21:07)
[2024-06-17] VITALS (51 sets, daily range): BP systolic 100–211; BP diastolic 55–88; PULSE 64–94; RESP 19–47; TEMP 36.8–38.2; O2SAT 91–100
[2024-06-17] MEDS: heparin 5,000 unit/mL INJ 1 mL 5000 UNIT SUBCUT ×2 (01:16→15:10)
[2024-06-17] MEDS: piperacillin-tazobactam 3.375 GM in sodium chloride 0.9% (plus) 50 ML IV ×3 (01:17→17:33)
[2024-06-17] MEDS: amlodipine 10 mg Tablet PO (02:20)
[2024-06-17 03:51] LABS: Basophils % 0.3 %; Eosinophils # 0.1 10^3/uL (0.0-0.8); Eosinophils % 0.6 %; Hematocrit 36.9 % (37-53); Lymphocytes # 1.4 10^3/uL (0.8-4.8); Lymphocytes % 16.4 %; Mean Corpuscular HGB Conc 32.5 g/dL (30-55); Mean Corpuscular Volume 86.2 fl (82-101); Mean Platelet Volume 8.7 fL (7.4-10.4); Neutrophils # 6.11 10^3/uL (1.8-7.7); Neutrophils % 70.8 %; Nucleated Red Blood Cells % 0 %; Platelet Count 339 10^3/cmm (157-399); Red Blood Count 4.28 10^6/uL (3.85-5.65); Red Cell Distribution Width 13.3 % (12.1-15.1); White Blood Count 8.64 10^3/uL (3.29-11.43)
--- NOTE | 2024-06-17 06:02 | PC.NURSE ---
Elevated blood pressure during night, Dr. Thurston notified, order given for amlodipine 10 mg now dose given, also order for q 24 hours. bp 152/70 this am. Remained off precedex. o2 5 L nc required this am.
[2024-06-17] MEDS: pantoprazole DR 40 mg Tablet PO (08:13)
[2024-06-17] MEDS: sertraline 50 mg Tablet PO (08:13)
[2024-06-17] MEDS: levETIRAcetam 500 mg Tablet 750 MG PO ×2 (08:13→17:32)
[2024-06-17] MEDS: lamoTRIgine 100 mg Tablet 200 MG PO ×2 (08:13→17:33)
[2024-06-17] MEDS: atorvastatin 40 mg Tablet 10 MG PO (08:14)
[2024-06-17] MEDS: nicotine 21 mg Patch 1 PATCH TRANSDERMA (08:15)
--- NOTE | 2024-06-17 12:00 | P.PN_ITS ---
Subjective 2 Subjective: seen today has been more calm vitals stable one spike of fever pt high aspiration risk Vitals/I&O/Wt Last Vital Signs Temp 100.1 F H 06/17/24 08:00 Pulse 75 06/17/24 10:00 Resp 29 H 06/17/24 10:00 BP 100/63 06/17/24 10:00 Pulse Ox 97 06/17/24 10:00 O2 Del Method High Flow Nasal Cannula 06/17/24 08:17 O2 Flow Rate 5 06/17/24 08:17 FiO2 40 06/16/24 00:00 06/16/24 06/17/24 06/17/24 22:59 06:59 14:59 Intake Total 450 / 512.694 140 / 652.694 Balance 450 / 512.694 140 / 652.694 Weight last 48 hrs Weight 62.6 kg Weight 64.45 kg Physical Exam 2 Narrative: General: Alert, sitting up in bed in ICU room 10, sitter at bedside HEENT: Normocephalic, atraumatic, EOMI, breathing on 4 L nasal cannula. Cardio: Regular rate rhythm, normal S1-S2, Respiratory: Ronchi b/l lung roberts, significant improvement GI: Abdomen soft, nontender, nondistended, bowel sounds + Extremities: no edema, no cyanosis Data 06/17/24 03:41 06/16/24 04:50 A&P Assessment and plan (1) HTN (hypertension): Qualifiers: Hypertension type: primary hypertension Qualified Code(s): I10 - Essential (primary) hypertension (2) Bilateral deafness: (3) Autistic disorder: (4) Generalized epilepsy: (5) Pneumonia: (6) Acute hypoxic respiratory failure: (7) Lives in assisted living facility: Plan #Bilateral pneumonia #Shortness of breath, fever secondary to above, meets sepsis criteria #Hyponatremia #Enterra rhinovirus positive #Autism #Bilateral deafness, mute #Epilepsy #Diabetes mellitus? ? Hyponatremia: Check urine sodium, serum, urine osmolality. Most likely medication induced. Patient is on epileptic medications. ? Lactic acid 4.0. Patient received IV fluids in hospital ER. Will continue on normal saline 100 cc/h ? X-ray shows bilateral pneumonia. Check sputum Gram stain culture, blood cultures, bacterial, Legionella antigens ? Enterra rhinovirus positive. Will place on Solu-Medrol 40 IV twice daily ? Confirm home medications ? Continue on Keppra, sertraline, tamsulosin, lamotrigine ? Check CBC CMP in a.m. ? Check procalcitonin ? Cardiac diet ? May use BiPAP if needed. Continue to wean down oxygen as able ? DuoNeb every 6 hours as needed Full code DVT prophylaxis heparin to be twice daily 06/17 Patient's home medications reviewed and in paper chart. Request RN to update emr ? Continue management as per H&P at this time. Continue antibiotics vancomycin and Zosyn. Await sputum culture - so far inconclusive precedex off ? May use Zyprexa if needed. descalate steroids to solumedrol 40 iv daily pt had had quite a few aspiration episodes speech therapy consult obtained, diet updated as per recommendations, would treat pneumonia total 14 days abx given bilateral nature with recurrant aspiration ronchi have significant improvement may transfer to floor continue to wean down o2 as able it will be difficult to perform home o2 eval for the patient however it may be attempted PTD will most likely need O2 at discharge for short term transfer to floor Attestations 2 Medical Necessity Statement*: requires continued hospitalization for tx of pneumonia Diagnoses Primary hypertension I10 Hypertension type: primary hypertension Bilateral deafness H91.93 Autistic disorder F84.0 Generalized epilepsy G40.309 Pneumonia J18.9 Acute hypoxic respiratory failure J96.01 Lives in assisted living facility Z59.3
[2024-06-17 15:24] LABS: Osmolality Urine 684 mOsm/kg (50-1200)
[2024-06-17 15:25] LABS: Vancomycin Trough < 4.0 ug/mL (10-15)
[2024-06-17 15:36] LABS: Osmolality Serum 283 mOsm/kg (278-305)
[2024-06-17] MEDS: vancomycin 1,000 MG in sodium chloride 0.9% 250 ML 250 MG IV (15:59)
--- NOTE | 2024-06-17 16:19 | PC.NURSE ---
Patient transferred from ICU to med surg unit about 1550. Patient came with his vancomycin - ICU nurse got it mixed but did not start it due to transfer - Vancomycin was due at 1530 and started at 1559. Lab called after 1600 to say that they were going to redraw his vanc trough, nursing staff confirmed with pharmacists if this is what needs to be done. Pharmacists said it will need to be drawn before next dose. Lab is notified.
[2024-06-17] MEDS: tamsulosin 0.4 mg Capsule PO (21:39)
[2024-06-18] VITALS: BP 150/62; PULSE 85; RESP 20; TEMP 37.3; O2SAT 91
[2024-06-18] MEDS: piperacillin-tazobactam 3.375 GM in sodium chloride 0.9% (plus) 50 ML IV ×2 (00:55→10:51)
[2024-06-18] MEDS: acetaminophen 325 mg Tablet 650 MG PO (01:08)
[2024-06-18] MEDS: heparin 5,000 unit/mL INJ 1 mL 5000 UNIT SUBCUT (03:02)
[2024-06-18 04:00] VITALS: BP 161/71; PULSE 74; RESP 15; O2SAT 93
[2024-06-18 05:56] LABS: Basophils % 0.2 %; Eosinophils # 0.1 10^3/uL (0.0-0.8); Eosinophils % 1.3 %; Hematocrit 34.7 % (37-53); Lymphocytes # 1.8 10^3/uL (0.8-4.8); Mean Corpuscular HGB Conc 33.1 g/dL (30-55); Mean Corpuscular Hemoglobin 28.3 pg (27-33); Mean Corpuscular Volume 85.3 fl (82-101); Mean Platelet Volume 8.9 fL (7.4-10.4); Monocytes % 12.6 %; Neutrophils # 5.19 10^3/uL (1.8-7.7); Neutrophils % 62.8 %; Nucleated Red Blood Cells % 0 %; Platelet Count 375 10^3/cmm (157-399); Red Blood Count 4.07 10^6/uL (3.85-5.65); Red Cell Distribution Width 13.4 % (12.1-15.1); White Blood Count 8.27 10^3/uL (3.29-11.43)
[2024-06-18 06:14] LABS: Blood Urea Nitrogen 12 mg/dL (8-23); Calcium 8.5 mg/dL (8.5-10.5); Carbon Dioxide 22 mmol/L (22-29); Chloride 104 mmol/L (98-107); Creatinine Clr Calc Pharmacy 52.9833; Glucose 96 mg/dL (65-115); Osmolality Calculated 290 mOsm/kg (285-295); Sodium 140 mmol/L (136-145)
[2024-06-18 07:39] VITALS: BP 162/83; PULSE 75; RESP 20; TEMP 36.7; O2SAT 92
[2024-06-18 10:26] VITALS: PULSE 80; RESP 18; O2SAT 94
[2024-06-18] MEDS: levETIRAcetam 500 mg Tablet 750 MG PO (10:50)
[2024-06-18] MEDS: pantoprazole DR 40 mg Tablet PO (10:51)
[2024-06-18] MEDS: lamoTRIgine 100 mg Tablet 200 MG PO (10:51)
[2024-06-18] MEDS: sertraline 50 mg Tablet PO (10:53)
[2024-06-18] MEDS: amlodipine 10 mg Tablet PO (10:53)
[2024-06-18] MEDS: atorvastatin 40 mg Tablet 10 MG PO (10:53)
[2024-06-18] MEDS: nicotine 21 mg Patch 1 PATCH TRANSDERMA (10:58)
[2024-06-18 12:00] VITALS: BP 153/67; PULSE 84; RESP 18; TEMP 36.7; O2SAT 91
--- NOTE | 2024-06-18 12:34 | PM.DCS ---
Discharge Providers Date of Admission: 06/14/24 12:28 Date of Discharge: June 18, 2024 Attending Provider at Admission: Salina Pepper MD Attending Provider at Discharge: Americo Snow MD Primary Care Provider: Ant Cantor DO Diagnoses at Discharge Discharge Diagnosis (1) HTN (hypertension): Status: Acute Qualifiers: Hypertension type: primary hypertension Qualified Code(s): I10 - Essential (primary) hypertension (2) Bilateral deafness: Status: Acute (3) Autistic disorder: Status: Acute (4) Generalized epilepsy: Status: Acute (5) Pneumonia: Status: Acute (6) Acute hypoxic respiratory failure: Status: Acute (7) Lives in assisted living facility: Status: Acute Reason for Visit Reason for Visit: SOB Hospital Course Hospital Course Lito is a 74-year-old male with autism, epilepsy, who lives in assisted living. He presented with respiratory failure and pneumonia with bilateral infiltrates. COVID testing was negative, but Enterra rhinovirus was positive. He was initially placed on some Solu-Medrol, Zosyn, and vancomycin ultimately added. During the course of his hospital stay he markedly improved. He weaned down to room air. He became afebrile and was afebrile greater than 24 hours prior to discharge. As there was concern for aspiration speech saw him during his hospital stay, recommending minced and moist diet with slightly thickened fluids. He tolerated this without difficulty on day of discharge. On day of discharge he was afebrile, on room air, and it was thought he could be discharged home. Laboratory was largely normal at that time. He will discharge on a short course of Augmentin and doxycycline for 6 days. Blood culture was negative at time of discharge. Physical Exam Narrative: General Exam no distress, nonverbal Neck is supple Cardiovascular regular rate rhythm Lungs slightly coarse at the bases Abdomen is soft, positive bowel sounds Extremities no cyanosis clubbing or edema Discharge Data Studies Completed and Pending Completed Studies During Hospitalization Category Date Time Status XR chest 1V portable [id number] Stat Exams 06/14/24 09:32 Completed Pending at discharge Category Date Time Status Blood Culture Stat Lab 06/14/24 10:34 Results MRSA [Methicillin Resistant S.aureu] Routine Lab 06/18/24 08:44 Uncollected Sputum Culture and Gram Stain Stat Lab 06/14/24 14:04 Uncollected Vancomycin Trough Routine Lab 06/18/24 14:30 Ordered Radiology Impressions Chest X-Ray 06/14/24 09:32 IMPRESSION: Bilateral pneumonia Laboratory Results WBC 8.27 10^3/uL (3.29-11.43) 06/18/24 05:44 RBC 4.07 10^6/uL (3.85-5.65) 06/18/24 05:44 Hgb 11.50 g/dL (11.27-16.99) 06/18/24 05:44 Hct 34.7 % (37-53) L 06/18/24 05:44 MCV 85.3 fl (82-101) 06/18/24 05:44 MCH 28.3 pg (27-33) 06/18/24 05:44 MCHC 33.1 g/dL (30-55) 06/18/24 05:44 RDW 13.4 % (12.1-15.1) 06/18/24 05:44 Plt Count 375 10^3/cmm (157-399) 06/18/24 05:44 MPV 8.9 fL (7.4-10.4) 06/18/24 05:44 Neut % (Auto) 62.8 % 06/18/24 05:44 Lymph % (Auto) 22.0 % 06/18/24 05:44 [place] % (Auto) 12.6 % 06/18/24 05:44 Eos % (Auto) 1.3 % 06/18/24 05:44 Baso % (Auto) 0.2 % 06/18/24 05:44 Neut # (Auto) 5.19 10^3/uL (1.8-7.7) 06/18/24 05:44 Lymph # (Auto) 1.8 10^3/uL (0.8-4.8) 06/18/24 05:44 [place] # (Auto) 1.0 10^3/uL (0.2-0.9) H 06/18/24 05:44 Eos # (Auto) 0.1 10^3/uL (0.0-0.8) 06/18/24 05:44 Baso # (Auto) 0.0 10^3/uL (0.0-0.1) 06/18/24 05:44 Nucleated RBC % (auto) 0 % 06/18/24 05:44 Nucleated RBCs # 0.0 /100WBC 06/18/24 05:44 Specimen Type Arterial 06/14/24 10:10 Sample Site Brachial, left 06/14/24 10:10 ABG pH 7.41 (7.35-7.45) 06/14/24 10:10 ABG pCO2 40.7 mmHg (35-45) 06/14/24 10:10 ABG pO2 54.9 mmHg (80.0-100.0) L 06/14/24 10:10 ABG PO2/FiO2 Ratio 171 06/14/24 10:10 ABG HCO3 25.8 mmol/L (22-26) 06/14/24 10:10 ABG O2 Saturation 89.3 06/14/24 10:10 ABG Base Excess 1.1 mmol/L (-2.0-2.0) 06/14/24 10:10 Dav Test Pos 06/14/24 10:10 A-a O2 Gradient 16.1 mmHg (5-10) H 06/14/24 10:10 Hematocrit 35.5 % (42-52) L 06/14/24 10:10 Hgb O2 Saturation 86.9 % (95-100) L 06/14/24 10:10 Carboxyhemoglobin 1.0 %THgb (0.4-20.1) 06/14/24 10:10 Methemoglobin 1.7 % (0.4-1.5) H 06/14/24 10:10 Total Hemoglobin 11.6 g/dL (14-18) L 06/14/24 10:10 Sodium 128.0 mmol/L (131-143) L 06/14/24 10:10 Potassium 4.7 mmol/L (3.5-5.0) 06/14/24 10:10 Glucose 313.0 mg/dL (70-115) H 06/14/24 10:10 Ionized Calcium 1.3 mmol/L (1.1-1.4) 06/14/24 10:10 O2 Delivery Device Nc 06/14/24 10:10 O2 Liters/Min 3.0 % 06/14/24 10:10 FiO2 32.0 % 06/14/24 10:10 Plastics Process Hand ID Cak 06/14/24 10:10 Sodium 140 mmol/L (136-145) 06/18/24 05:44 Potassium 4.0 mmol/L (3.5-5.1) 06/18/24 05:44 Chloride 104 mmol/L (98-107) 06/18/24 05:44 Carbon Dioxide 22 mmol/L (22-29) 06/18/24 05:44 Anion Gap 18.0 (5-19) 06/18/24 05:44 BUN 12 mg/dL (8-23) 06/18/24 05:44 Creatinine 1.0 mg/dL (0.7-1.2) 06/18/24 05:44 GFR Calculation Not Reportable 06/18/24 05:44 Glucose 96 mg/dL (65-115) 06/18/24 05:44 Serum Osmolality 283 mOsm/kg (278-305) 06/14/24 15:12 Calculated Osmolality 290 mOsm/kg (285-295) 06/18/24 05:44 Lactic Acid 4.0 mmol/L (0.5-2.2) H 06/14/24 10:34 Lactic Acid (Sepsis) 1.7 mmol/L (0.5-2.2) 06/14/24 13:37 Calcium 8.5 mg/dL (8.5-10.5) 06/18/24 05:44 Magnesium 2.3 mg/dL (1.7-2.3) 06/16/24 04:50 Total Bilirubin 0.3 mg/dL (0.15-1.2) 06/15/24 06:58 AST 21 U/L (0-40) 06/15/24 06:58 ALT 17 U/L (0-41) 06/15/24 06:58 Alkaline Phosphatase 169 U/L (40-130) H 06/15/24 06:58 Creatine Kinase 347 U/L (39-308) H* 06/14/24 10:34 Total Protein 6.9 g/dL (6.6-8.7) 06/15/24 06:58 Albumin 3.2 g/dL (3.5-5.2) L 06/15/24 06:58 Globulin 3.7 g/dL (1.3-4.6) 06/15/24 06:58 Procalcitonin 5.62 ng/mL (0-0.5) H 06/14/24 10:34 TSH 0.90 uIU/mL (0.27-4.20) 06/14/24 10:34 Urine Color Dark yellow (Yellow) A 06/14/24 15:35 Urine Appearance Clear (CLEAR) 06/14/24 15:35 Urine pH 6.0 (5-7) 06/14/24 15:35 Ur Specific [place] 1.032 (1.005-1.030) H 06/14/24 15:35 Urine Protein 1+ (Negative) A 06/14/24 15:35 Urine Glucose (UA) Negative (Normal) 06/14/24 15:35 Urine Ketones Trace (Negative) 06/14/24 15:35 Urine Blood Negative (Negative) 06/14/24 15:35 Urine Nitrate Negative (Negative) 06/14/24 15:35 Urine Bilirubin Negative (Negative) 06/14/24 15:35 Urine Urobilinogen 1.0 mg/dL (Negative) 06/14/24 15:35 Ur Leukocyte Esterase Negative (Negative) 06/14/24 15:35 Urine RBC 0-2 /hpf (0-2) 06/14/24 15:35 Urine WBC 0-5 /hpf (0-5) 06/14/24 15:35 Ur Squamous Epith Cells 0-5 /hpf (0-5) 06/14/24 15:35 Amorphous Sediment Not Reportable 06/14/24 15:35 Urine Bacteria None seen /hpf (NONE) 06/14/24 15:35 Hyaline Casts 0.81 /lpf 06/14/24 15:35 Urine Osmolality 684 mOsm/kg (50-1200) 06/14/24 15:35 Ur Random Sodium 10 mmol/L 06/14/24 15:35 Vancomycin Trough < 4.0 ug/mL (10-15) L 06/17/24 14:41 Coronavirus 229E (PCR) Not detected (NOT DETECT) 06/14/24 10:17 Human Metapneumovir PCR Not detected (NOT DETECT) 06/14/24 13:27 Influenza Type A Ag negative (Negative) 06/14/24 10:17 Influenza Type B Ag negative (Negative) 06/14/24 10:17 Entero/Rhino (PCR) Detected (NOT DETECT) A 06/14/24 13:27 SARS-CoV-2 (PCR) Not detected (NOT DETECT) 06/14/24 10:17 Vitals Last Vital Signs Temp 98.0 F 06/18/24 12:00 Pulse 84 06/18/24 12:00 Resp 18 06/18/24 12:00 BP 153/67 06/18/24 12:00 Pulse Ox 91 06/18/24 12:00 O2 Del Method Room Air 06/18/24 12:00 O2 Flow Rate 5 06/17/24 08:17 FiO2 40 06/16/24 00:00 Discharge Plan Discharge Patient Disposition: Home Condition: Stable Prescriptions: New amlodipine 10 mg Tablet 10 mg PO DAILY Qty: 30 0RF doxycycline hyclate 100 mg capsule 100 mg PO BID 6 Days Qty: 12 0RF amoxicillin-pot clavulanate 875-125 mg tablet 1 tab PO BID Qty: 12 0RF Continued Neosporin (qcf-sqm-ykolf) 3.5-400-5,000 [id number] ointment in packet 1 applic TOPICAL DAILY PRN (Reason: skin irritations/cuts/abrasions) lorazepam [Ativan] 1 mg tablet 1 mg sublingual Q6H PRN (Reason: seizures) Qty: 10 1RF sertraline 50 mg tablet See Rx Instructions .ROUTE .COMPLEX Qty: 30 11RF Dose Instruction: TAKE ONE TABLET BY MOUTH EVERY 24 HOURS Rx Instructions: TAKE ONE TABLET BY MOUTH EVERY 24 HOURS calcitonin (salmon) 200 unit/actuation spray,non-aerosol 1 spray intranasal (ALT) DAILY Qty: 3.7 6RF Rx Instructions: one spray twice daily alt nostrils. tamsulosin 0.4 mg capsule See Rx Instructions .ROUTE .COMPLEX Qty: 30 5RF Dose Instruction: TAKE ONE CAPSULE BY MOUTH EVERY NIGHT AT BEDTIME FOR BPH Rx Instructions: TAKE ONE CAPSULE BY MOUTH EVERY NIGHT AT BEDTIME FOR BPH levetiracetam 750 mg tablet See Rx Instructions .ROUTE .COMPLEX Qty: 60 5RF Dose Instruction: TAKE ONE TABLET BY MOUTH TWICE DAILY FOR SEIZURES Rx Instructions: TAKE ONE TABLET BY MOUTH TWICE DAILY FOR SEIZURES lamotrigine 200 mg tablet See Rx Instructions .ROUTE .COMPLEX Qty: 60 5RF Dose Instruction: TAKE ONE TABLET BY MOUTH TWICE DAILY FOR SEIZURES Rx Instructions: TAKE ONE TABLET BY MOUTH TWICE DAILY FOR SEIZURES enalapril maleate 20 mg tablet See Rx Instructions .ROUTE .COMPLEX Qty: 60 5RF Dose Instruction: TAKE ONE TABLET BY MOUTH TWICE DAILY; TAKE B/P & P BEFORE ADMINISTERING; HOLD IF P < 60 OR BP < 110/70 & CALL NURSE; FOR HTN Rx Instructions: TAKE ONE TABLET BY MOUTH TWICE DAILY; TAKE B/P & P BEFORE ADMINISTERING; HOLD IF P < 60 OR BP < 110/70 & CALL NURSE; FOR HTN atorvastatin 10 mg tablet See Rx Instructions .ROUTE .COMPLEX Qty: 30 5RF Dose Instruction: TAKE ONE TABLET BY MOUTH EVERY NIGHT AT BEDTIME FOR DECREASE CHOLESTEROL Rx Instructions: TAKE ONE TABLET BY MOUTH EVERY NIGHT AT BEDTIME FOR DECREASE CHOLESTEROL bismuth subsalicylate 262 mg/15 mL suspension See Rx Instructions .ROUTE .COMPLEX Qty: 236 4RF Dose Instruction: GIVE DIRECTED ON BOTTLE FOR DIARRHEA & STOMACH RELIEF NEEDED *STOCK* Rx Instructions: GIVE DIRECTED ON BOTTLE FOR DIARRHEA & STOMACH RELIEF NEEDED *STOCK* cetirizine 10 mg Tablet 10 mg PO BEDTIME PRN (Reason: seasonal alleriges) Milk of Magnesia 400 mg/5 mL Suspension See Rx Instructions .ROUTE .COMPLEX PRN (Reason: Constipation) Rx Instructions: Take 30 mL orally as needed on 4th day if no bowel movement in 3 days. Call nurse on 5th day. Coricidin HBP Cold and Flu 2-325 mg Tablet 1 tab PO Q6H PRN (Reason: cough/congestion) acetaminophen 325 mg tablet 650 mg PO Q4H PRN (Reason: pain or elevated temp > 100) trazodone 50 mg tablet 50 mg PO BEDTIME famotidine 40 mg tablet 40 mg PO DAILY magnesium oxide 400 mg (241.3 mg magnesium) tablet 400 mg PO DAILY Devi-Lanta 200-200-20 mg/5 mL suspension 30 ml PO PRN PRN (Reason: indigestion/gas relief) finasteride 5 mg tablet See Rx Instructions .ROUTE .COMPLEX Rx Instructions: TAKE ONE TABLET BY MOUTH EVERY NIGHT AT BEDTIME FOR BPH; WEAR GLOVES TO TOUCH/HANDLE. PNV cmb#95-ferrous fumarate-FA 28 mg iron- 800 mcg tablet 1 tab PO DAILY Discontinued nifedipine 90 mg tablet extended release 24hr See Rx Instructions .ROUTE .COMPLEX Qty: 90 5RF Dose Instruction: TAKE ONE TABLET BY MOUTH THREE TIMES DAILY FOR RENAL FAILURE; HOLD IF P < 60 OR BP 110/70 & CALL RN; NOTIFY RN/SHAKE LOADER IF NO BOWEL MOVEMENT X3 DAYS Rx Instructions: TAKE 1 TAB BY MOUTH 3 TIMES DAILY FOR RENAL FAILURE; HOLD IF BP <60 OR BP 110/70 & CALL RN; NOTIFY RN/SHAKE LOADER IF NO BM X3 DAYS Discharge Orders: Discharge Order (Routine); Ordered 06/18/24 Ordered By: Americo Snow Referrals: Ant Cantor DO [Primary Care Provider] - 4-7 days Discharge Diet: Usual diet and As Directed Discharge Activity: Resume usual activity Patient Instructions: Opioid Safety Activity Restrictions/Additional Instructions: Take all medicine as prescribed Follow-up with your primary care provider 3 to 5 days Finish antibiotics as noted Diet should be minced and moist, mildly thickened liquids Return for any concerns Discharge Attestations Time Spent in Discharge Care*: greater than 30 min Quality Metrics Clinical Quality Measures [ No reported AMI, CVA or VTE this stay] Coding Level of Care Code 75471 Total time (in minutes) for Discharge: 45 Diagnoses Primary hypertension I10 Hypertension type: primary hypertension Bilateral deafness H91.93 Autistic disorder F84.0 Generalized epilepsy G40.309 Pneumonia J18.9 Acute hypoxic respiratory failure J96.01 Lives in assisted living facility Z59.3
--- NOTE | 2024-06-18 15:00 | PC.SOCIAL ---
IMM updated IMM dated and initialed, copy given to patient and copy placed in chart
== END 2024-06-18 15:04 | disposition home or self-care (01) | DRG 871 ==
LOC: ER 09:58 → ICU 13:24 → MEDSURG 06-17 15:33
PROVIDERS: Admitting Provider Internal Medicine; Emergency Provider Family Medicine; PCP Family Medicine; Visit Provider Internal Medicine
DX: A41.9 Sepsis, unspecified organism (principal); J18.9 Pneumonia, unspecified organism; J96.01 Acute respiratory failure with hypoxia; F84.0 Autistic disorder; E87.1 Hypo-osmolality and hyponatremia; E87.20 Acidosis, unspecified; B34.1 Enterovirus infection, unspecified; G40.409 Other generalized epilepsy and epileptic syndromes, not intractable, without status epilepticus; H91.3 Deaf nonspeaking, not elsewhere classified; Z20.822 Contact with and (suspected) exposure to COVID-19; F79 Unspecified intellectual disabilities; Z11.52 Encounter for screening for COVID-19
CPT/HCPCS: 36415; 36600; 71045; 80048; 80051; 80053; 80202; 81003; 81015; 82330; 82550; 82805; 83605; 83735; 83930; 83935; 84145; 84300; 84443; 85025; 86403; 87040; 87449; 87635; 87801; 87804; 92523; 92610; 93005; 94640; 94660; 94664; 96365; 96372; 96374; 96376; 99285; J0131; J1100; J1170; J1630; J1644; J1885; J2060; J2543; J3370; J3490; J7030; J7050

== ENCOUNTER 2024-09-17 09:05 | Observation (INO) | payer MEDICARE, MEDICAID, SELFPAY ==
[2024-09-17] VITALS (18 sets, daily range): BP systolic 78–156; BP diastolic 43–83; PULSE 57–82; RESP 12–21; TEMP 36.3–36.9; O2SAT 91–99; BMI 23.0; BMI 16.6
[2024-09-17 09:18] LABS: Glucose Point of Care 155 mg/dL (70-110)
--- NOTE | 2024-09-17 09:28 | XR_ITS ---
WS: [id number] XR chest 1V portable [id number] REASON FOR EXAM: syncope FINDINGS: Moderate tortuosity of the thoracic aorta. Somewhat prominent rounded hypertrophic cardiac silhou ette. Heart not enlarged. Calcified granulomas disease in both hemithoraces. No acute pulmonary parenchymal or pleural abnormality. Moderate degenerative spondylosis in the mid and lower thoracic spine. XR/XR chest 1V portable [id number] IMPRESSION: No acute chest abnormality.
--- NOTE | 2024-09-17 09:28 | CTR_ITS ---
PROCEDURE INFORMATION: Exam: CT Head Without Contrast Exam date and time: 09/17/2024 9:52 AM Age: 74 years old Clinical indication: Syncope and collapse; Additional info: Lost consciousness, deaf/mute/autistic TECHNIQUE: Imaging protocol: Computed tomography of the head without contrast. Radiation optimization: All CT scans at this facility use at least one of these dose optimization techniques: automated exposure control; mA and/or kV adjustment per patient size (includes targeted exams where dose is matched to clinical indication); or iterative reconstruction. COMPARISON: No relevant prior studies available. RADIATION DOSE METRICS: Total DLP (mGy-cm): 1217.12 FINDINGS: Brain: No hemorrhage. Periventricular white matter lucency represents atherosclerotic encephalopathic changes. No mass effect. Cerebral ventricles: No ventriculomegaly. Ventricular prominence proportionate to the degree of atrophy observed. Paranasal sinuses: Visualized sinuses are unremarkable. No fluid levels. Mastoid air cells: Visualized mastoid air cells are well aerated. Bones: Unremarkable. No acute fracture. Soft tissues: Unremarkable. CT/CT head wo con* [id number] IMPRESSION: No acute intracranial abnormality.
--- NOTE | 2024-09-17 09:32 | PC.NURSE ---
glucose via FS: 155
--- NOTE | 2024-09-17 09:33 | PC.PHAR ---
patient is from [facility], getting list faxed now. called and got lillie which is the talent management manager, her phone is [phone] or alternative # [phone] if we have any further questions or concerns
[2024-09-17 09:39] LABS: Basophils % 0.8 %; Eosinophils # 0.1 10^3/uL (0.0-0.8); Hematocrit 44.3 % (37-53); Lymphocytes # 1.8 10^3/uL (0.8-4.8); Lymphocytes % 50.4 %; Mean Corpuscular HGB Conc 32.3 g/dL (30-55); Mean Corpuscular Hemoglobin 27.9 pg (27-33); Mean Corpuscular Volume 86.5 fl (82-101); Mean Platelet Volume 8.8 fL (7.4-10.4); Monocytes # 0.3 10^3/uL (0.2-0.9); Monocytes % 8.5 %; Neutrophils # 1.36 10^3/uL (1.8-7.7); Neutrophils % 38.3 %; Nucleated Red Blood Cells % 0 %; Platelet Count 275 10^3/cmm (157-399); Red Blood Count 5.12 10^6/uL (3.85-5.65); Red Cell Distribution Width 13.5 % (12.1-15.1); White Blood Count 3.55 10^3/uL (3.29-11.43)
[2024-09-17] MEDS: sodium chloride 0.9% 1,000 ML 999 ML IV ×2 (09:45→10:28)
[2024-09-17 09:56] LABS: Lactic Sepsis W/Reflex 2.9 mmol/L (0.5-2.2)
[2024-09-17 09:57] LABS: Alanine Aminotransferase 21 U/L (0-41); Albumin Level 4.8 g/dL (3.5-5.2); Alkaline Phosphatase 224 U/L (40-130); Anion Gap 16.5 (5-19); Aspartate Amino Transferase 20 U/L (0-40); Blood Urea Nitrogen 16 mg/dL (8-23); Calcium 10.4 mg/dL (8.5-10.5); Carbon Dioxide 27 mmol/L (22-29); Chloride 98 mmol/L (98-107); Glucose 153 mg/dL (65-115); Osmolality Calculated 288 mOsm/kg (285-295); Potassium 4.5 mmol/L (3.5-5.1); Sodium 137 mmol/L (136-145); Total Bilirubin 0.2 mg/dL (0.15-1.2); Total Protein 7.8 g/dL (6.6-8.7)
[2024-09-17 09:58] LABS: Troponin(5th) Baseline < 6 ng/L (0-15)
--- NOTE | 2024-09-17 10:07 | ECG_ITS ---
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 Measurements Intervals [place] Rate: 61 P: 66 AR: 177 QRS: -55 QRSD: 129 T: 78 QT: 418 QTc: 422 Interpretive Statements SINUS RHYTHM LEFT ANTERIOR FASCICULAR BLOCK [QRS AXIS <= -45, QR IN I, RS IN II] VOLTAGE CRITERIA FOR LVH [MEETS CRITERIA IN ONE OF: R(aVL), S(V1), R(V5), R(V5/V6)+S(V1)] POSSIBLE SEPTAL MYOCARDIAL INFARCTION , POSSIBLY ACUTE [30 ms Q WAVE IN V1/V2] ACUTE CA Compared to ECG 06/14/2024 10:06:00 Left anterior fascicular block now present Left-axis deviation no longer present Right bundle-branch block no longer present ST (T wave) deviation no longer present Myocardial infarct finding still present Electronically Signed On 09-17-2024 19:28:37 FOIL OPERATOR by Hector Peng M.D. [email or web address]
[2024-09-17 10:33] LABS: Bilirubin Urine Negative (Negative); Blood Urine 3+ (Negative); Glucose Urine UA Negative (Normal); Ketones Urine Negative (Negative); Leukocyte Esterase Urine Trace (Negative); Nitrate Urine Negative (Negative); Protein Urine 1+ (Negative); Specific Gravity, Urine 1.018 (1.005-1.030); Urine Appearance Clear (CLEAR); Urine Color Yellow (Yellow)
[2024-09-17 10:38] LABS: Add Urine Microscopic? YES; Bacteria Urine None Seen /hpf; Hyaline Casts Urine 13.63 /lpf; RBC Urine 51-100 /hpf (0-2); Squamous Epithelial Cell Urine 0-5 /hpf (0-5); WBC Urine 0-5 /hpf (0-5)
[2024-09-17 10:48] LABS: UA Slide Review UA Slide Review Perf
[2024-09-17 10:53] LABS: Add Urine Culture? Yes
--- NOTE | 2024-09-17 11:06 | ED_ITS ---
HPI - Syncope 2 General: Chief Complaint: Syncope Stated Complaint: SOB, Unresponsive Time Seen by Provider: 09/17/24 09:18 History of Present Illness: 74-year-old male presents to the emergen cy department from the outpatient podiatry clinic. He was having a routine appointment to work on his toenails. He is accompanied by 2 staff members who work with him at the [facility]. Patient is reportedly deaf, does not speak, does not sign, and has autism. He cannot give any history. The [facility] workers report that he sat down a couple times on the way to the appointment. He does this sometimes when he does not want to go somewhere so I did not think much of it. Other than that, he had a normal morning. He had not eaten breakfast as they were going to do this after the appointment. He does take blood pressure medication including enalapril and nifedipine during the day and amlodipine before bed. Today while he was getting his toenails worked on, he suddenly became unconscious. They report that he had irregular breathing and temporarily seem to stop. He responded to it sternal rub. Workers thought the left side of his face looked droopy. Patient seem to revive within approximately 2 minutes. He was brought to the emergency department. On arrival he was hypotensive with a blood pressure of 78/43. He had a sinus bradycardia. His respiratory rate was slightly slow. Patient quickly returned to his baseline, according to those that know him. He does have a history of seizures. However the staff has witnessed his seizures before and says this did not look like any seizure. He did not have any tonic-clonic movement and he had irregular breathing and loss of consciousness which is not typical. He has not had any fever, vomiting, diarrhea, black or bloody stools, hemoptysis, hematemesis, or any other signs or symptoms that staff have observed over the last few days. Related Data Home Medications Medication Instructions Recorded Confirmed neomycin-bacitracn Zn-polymyxn 3.5 1 applic topical DAILY PRN skin 10/20/19 09/17/24 mg-400 unit-5,000 unit top oint irritations/cuts/abrasions pkt (Neosporin([id number])) acetaminophen 325 mg tablet 650 mg PO Q4H PRN pain or elevated 06/18/24 09/17/24 temp > 100 aluminum-mag hydroxide-simethicone 30 ml PO PRN PRN indigestion/gas 06/18/24 09/17/24 200 mg-200 mg-20 mg/5 mL oral susp relief (Devi-Lanta) famotidine 40 mg tablet 40 mg PO DAILY 06/18/24 09/17/24 magnesium hydroxide 400 mg/5 mL See Rx Instructions .Route 06/18/24 09/17/24 oral suspension (Milk of Magnesia) .COMPLEX PRN Constipation vit no.95-ferrous 1 tab PO DAILY 06/18/24 09/17/24 fumarate 28 mg-folic acid 800 mcg tablet amlodipine 10 mg tablet 10 mg PO DAILY 09/17/24 09/17/24 atorvastatin 10 mg tablet 10 mg PO QPM cholesterol 09/17/24 09/17/24 finasteride 5 mg tablet 5 mg PO QPM 09/17/24 09/17/24 lamotrigine 200 mg tablet 200 mg PO BID seizures 09/17/24 09/17/24 levetiracetam 750 mg tablet 750 mg PO BID seizures 09/17/24 09/17/24 nifedipine 90 mg tablet,extended 90 mg PO DAILY 09/17/24 09/17/24 release 24 hr sertraline 50 mg tablet 50 mg PO DAILY 09/17/24 09/17/24 tamsulosin 0.4 mg capsule 0.4 mg PO QPM 09/17/24 09/17/24 Previous Rx's Medication Instructions Recorded calcitonin (salmon) 200 1 spray intranasal (ALT) DAILY 02/27/24 unit/actuation nasal spray #3.7 mL enalapril maleate 20 mg tablet See Rx Instructions .Route 03/24/24 .COMPLEX #60 tabs bismuth subsalicylate 262 mg/15 mL See Rx Instructions .Route 04/30/24 oral suspension .COMPLEX #236 mL chlorpheniramine-acetaminophen 2 See Rx Instructions .Route 06/24/24 mg-325 mg tablet (Coricidin HBP .COMPLEX #20 tabs Cold and Flu) cetirizine 10 mg tablet 10 mg PO BEDTIME PRN seasonal 07/10/24 alleriges #90 tabs lorazepam 1 mg tablet (Ativan) 1 mg sublingual Q6H PRN seizures 07/22/24 #10 tabs magnesium oxide 400 mg (241.3 mg 400 mg PO DAILY 90 days #1 tab 08/13/24 magnesium) tablet trazodone 50 mg tablet 50 mg PO BEDTIME #30 tabs 09/16/24 Allergies Allergy/AdvReac Type Severity Reaction Status Date / Time No Known Allergies Allergy Verified 09/17/24 08:31 Review of Systems 2 General: Reports: ROS unobtainable due to medical condition and ROS unobtainable due to mental status PFSH ED 2 PFSH: Medical History Epilepsy Bilateral deafness HTN (hypertension) Autistic disorder Social History Smoking and tobacco/nicotine status: unknown if used tobacco/nicotine Alcohol intake: never Physical Exam 2 Narrative: EXAM NARRATIVE: Alert. Does not speak. Occasionally makes hand gestures that I do not understand. Does not seem to follow commands. Mostly cooperative, sometimes combative. Staff says he is back to his baseline. Exam is difficult. He will let me look at his pupils; with trying to pry open his eyelids they appear to be equal and round. There does appear to be some cataracts. Cannot test visual acuity. Cannot test extraocular movements. He does move all of his extremities normally. Heart and lung exams normal. Does not seem to have any abdominal tenderness. He sometimes pushes his abdomen out. Sensitivity of the exam unclear. No signs of any trauma. Const: COMMON NORMALS: alert and well nourished HENMT: COMMON NORMALS: normocephalic, atraumatic and external ears normal H EAD & SCALP: normocephalic and atraumatic EXTERNAL EAR: Yes external ears normal MOUTH: no muffled voice Eye: COMMON NORMALS: conjunctivae normal and no scleral icterus C ONJUNCTIVA: Yes conjunctivae normal Neck/C-Spine: COMMON NORMALS: no JVD GENERAL: Yes normal visual inspection and Yes trachea midline Resp: COMMON NORMALS: normal respiratory effort, No use of accessory muscles and clear to auscultation bilaterally AUSCULTATION: clear to auscultation bilaterally Cardio: COMMON NORMALS: no JVD, regular rate and regular rhythm RATE: r egular rate RHYTHM: regular rhythm GI: COMMON NORMALS: Soft to palpation and non-tender PALPATION: Yes Soft to palpation Extremity: COMMON NORMALS: normal to inspection Neuro: COMMON NORMALS: moves all extremities, no focal motor deficits and no sensory deficits noted SENSORIUM/ORIENTATION: Yes alert Skin: COMMON NORMALS: no rashes or lesions noted, turgor normal and no jaundice GENERAL SKIN EXAM: no rashes or lesions noted and turgor normal Course 2 Vital Signs: Vital signs: Vital Signs Pulse Rate 70 09/17/24 11:25 Respiratory Rate 18 09/17/24 11:25 Blood Pressure 121/49 09/17/24 11:25 Pulse Oximetry 93 09/17/24 11:25 MDM - Syncope Medical Decision Making Syncopal episode with hypotension upon arrival to the ER. Differential diagnosis includes hypovolemia, vasovagal, seizure, cardiac event (ACS, arrhythmia, etc.), thromboembolic event, occult bleeding, occult sepsis, other. EKG obtained at 10:07 AM. Sinus rhythm, rate 61, left axis deviation, QRS 129 ms, there are some ST segment elevations particular in V2 but not in excess of the QRS amplitude with the intraventricular conduction delay. No hyperacute T waves. CT scan of the head without contrast negative per radiology. Chest x-ray reviewed by EP and no obvious pneumonias, effusions, pneumothorax, heart failure. There is a mildly elevated lactic acid. Unclear etiology. No significant acid- base disturbance otherwise. Creatinine elevated to 1.6. UA without any signs of infection but there is some blood. This was a straight cath specimen. Patient's diastolic blood pressure is still much lower than typical. His systolic blood pressure has come up. His MAP is greater than 65 at this time. 2 L of IV fluid have been ordered. The patient has had 1 L of IV fluid thus far. He keeps bending his arm slowing down the IV fluid infiltration as the IV is in the antecubital fossa we are going to try and put in something to keep his arm straight. Initial troponin negative. Patient reevaluated and nothing is changed. We are going to do a CT scan of his abdomen and pelvis without contrast to evaluate for any obstructive uropathy/retention and to look at the rest of the abdomen and pelvis since the exam is difficult. Discussed with Dr. Snow for obs admission. Lab Data 09/17/24 09:30 09/17/24 09:30 Radiology Impressions Chest X-Ray 09/17/24 09:28 IMPRESSION: No acute chest abnormality. Head CT 09/17/24 09:28 IMPRESSION: No acute intracranial abnormality. Laboratory Results WBC 3.55 10^3/uL (3.29-11.43) 09/17/24 09:30 RBC 5.12 10^6/uL (3.85-5.65) 09/17/24 09:30 Hgb 14.30 g/dL (11.27-16.99) 09/17/24 09:30 Hct 44.3 % (37-53) 09/17/24 09:30 MCV 86.5 fl (82-101) 09/17/24 09:30 MCH 27.9 pg (27-33) 09/17/24 09:30 MCHC 32.3 g/dL (30-55) 09/17/24 09:30 RDW 13.5 % (12.1-15.1) 09/17/24 09:30 Plt Count 275 10^3/cmm (157-399) 09/17/24 09:30 MPV 8.8 fL (7.4-10.4) 09/17/24 09:30 Neut % (Auto) 38.3 % 09/17/24 09:30 Lymph % (Auto) 50.4 % 09/17/24 09:30 Dickenson % (Auto) 8.5 % 09/17/24 09:30 Eos % (Auto) 2.0 % 09/17/24 09:30 Baso % (Auto) 0.8 % 09/17/24 09:30 Neut # (Auto) 1.36 10^3/uL (1.8-7.7) L 09/17/24 09:30 Lymph # (Auto) 1.8 10^3/uL (0.8-4.8) 09/17/24 09:30 Dickenson # (Auto) 0.3 10^3/uL (0.2-0.9) 09/17/24 09:30 Eos # (Auto) 0.1 10^3/uL (0.0-0.8) 09/17/24 09:30 Baso # (Auto) 0.0 10^3/uL (0.0-0.1) 09/17/24 09:30 Nucleated RBC % (auto) 0 % 09/17/24 09:30 Nucleated RBCs # 0.0 /100WBC 09/17/24 09:30 Sodium 137 mmol/L (136-145) 09/17/24 09:30 Potassium 4.5 mmol/L (3.5-5.1) 09/17/24 09:30 Chloride 98 mmol/L (98-107) 09/17/24 09:30 Carbon Dioxide 27 mmol/L (22-29) 09/17/24 09:30 Anion Gap 16.5 (5-19) 09/17/24 09:30 BUN 16 mg/dL (8-23) 09/17/24 09:30 Creatinine 1.6 mg/dL (0.7-1.2) H 09/17/24 09:30 GFR Calculation Not Reportable 09/17/24 09:30 Glucose 153 mg/dL (65-115) H 09/17/24 09:30 POC Glucose 155 mg/dL (70-110) H 09/17/24 09:14 Calculated Osmolality 288 mOsm/kg (285-295) 09/17/24 09:30 Lactic Acid 2.9 mmol/L (0.5-2.2) H 09/17/24 09:30 Calcium 10.4 mg/dL (8.5-10.5) 09/17/24 09:30 Total Bilirubin 0.2 mg/dL (0.15-1.2) 09/17/24 09:30 AST 20 U/L (0-40) 09/17/24 09:30 ALT 21 U/L (0-41) 09/17/24 09:30 Alkaline Phosphatase 224 U/L (40-130) H 09/17/24 09:30 Troponin T Baseline < 6 ng/L (0-15) 09/17/24 09:30 Total Protein 7.8 g/dL (6.6-8.7) 09/17/24 09:30 Albumin 4.8 g/dL (3.5-5.2) 09/17/24 09:30 Globulin 3.0 g/dL (1.3-4.6) 09/17/24 09:30 Urine Color Yellow (Yellow) 09/17/24 10:15 Urine Appearance Clear (CLEAR) 09/17/24 10:15 Urine pH 6.0 (5-7) 09/17/24 10:15 Ur Specific Pep 1.018 (1.005-1.030) 09/17/24 10:15 Urine Protein 1+ (Negative) A 09/17/24 10:15 Urine Glucose (UA) Negative (Normal) 09/17/24 10:15 Urine Ketones Negative (Negative) 09/17/24 10:15 Urine Blood 3+ (Negative) A 09/17/24 10:15 Urine Nitrate Negative (Negative) 09/17/24 10:15 Urine Bilirubin Negative (Negative) 09/17/24 10:15 Urine Urobilinogen 1.0 mg/dL (Negative) 09/17/24 10:15 Ur Leukocyte Esterase Trace (Negative) A 09/17/24 10:15 Urine RBC 51-100 /hpf (0-2) H 09/17/24 10:15 Urine WBC 0-5 /hpf (0-5) 09/17/24 10:15 Ur Squamous Epith Cells 0-5 /hpf (0-5) 09/17/24 10:15 Amorphous Sediment Not Reportable 09/17/24 10:15 Urine Bacteria None seen /hpf (NONE) 09/17/24 10:15 Hyaline Casts 13.63 /lpf 09/17/24 10:15 All radiology interpretation(s) finalized by discharge Discharge Plan Discharge Patient Disposition: Placed in Observation Clinical Impression: Syncope, Elevated serum creatinine, Hypotension Condition: Stable Prescriptions: No Action Neosporin (rua-cvc-ribjr) 3.5-400-5,000 [id number] ointment in packet 1 applic TOPICAL DAILY PRN (Reason: skin irritations/cuts/abrasions) calcitonin (salmon) 200 unit/actuation spray,non-aerosol 1 spray intranasal (ALT) DAILY Qty: 3.7 6RF Rx Instructions: one spray twice daily alt nostrils. enalapril maleate 20 mg tablet See Rx Instructions .ROUTE .COMPLEX Qty: 60 5RF Dose Instruction: TAKE ONE TABLET BY MOUTH TWICE DAILY; TAKE B/P & P BEFORE ADMINISTERING; HOLD IF P < 60 OR BP < 110/70 & CALL NURSE; FOR HTN Rx Instructions: TAKE ONE TABLET BY MOUTH TWICE DAILY; TAKE B/P & P BEFORE ADMINISTERING; HOLD IF P < 60 OR BP < 110/70 & CALL NURSE; FOR HTN bismuth subsalicylate 262 mg/15 mL suspension See Rx Instructions .ROUTE .COMPLEX Qty: 236 4RF Dose Instruction: GIVE DIRECTED ON BOTTLE FOR DIARRHEA & STOMACH RELIEF NEEDED *STOCK* Rx Instructions: GIVE DIRECTED ON BOTTLE FOR DIARRHEA & STOMACH RELIEF NEEDED *STOCK* Coricidin HBP Cold and Flu 2-325 mg tablet See Rx Instructions .ROUTE .COMPLEX Qty: 20 0RF Dose Instruction: TAKE TWO TABLETS BY MOUTH EVERY 6 HOURS NEEDED * NOT TO EXCEED 10 TABLETS in 24 hours* Rx Instructions: TAKE TWO TABLETS BY MOUTH EVERY 6 HOURS NEEDED * NOT TO EXCEED 10 TABLETS in 24 hours* cetirizine 10 mg tablet 10 mg PO BEDTIME PRN (Reason: seasonal alleriges) Qty: 90 0RF lorazepam [Ativan] 1 mg tablet 1 mg sublingual Q6H PRN (Reason: seizures) Qty: 10 1RF magnesium oxide 400 mg (241.3 mg magnesium) tablet 400 mg PO DAILY 90 Days Qty: 1 0RF trazodone 50 mg tablet 50 mg PO BEDTIME Qty: 30 2RF magnesium hydroxide [Milk of Magnesia] 400 mg/5 mL Suspension See Rx Instructions .ROUTE .COMPLEX PRN (Reason: Constipation) Rx Instructions: Take 30 mL orally as needed on 4th day if no bowel movement in 3 days. Call nurse on 5th day. acetaminophen 325 mg tablet 650 mg PO Q4H PRN (Reason: pain or elevated temp > 100) famotidine 40 mg tablet 40 mg PO DAILY alum-mag hydroxide-simeth [Devi-Lanta] 200-200-20 mg/5 mL suspension 30 ml PO PRN PRN (Reason: indigestion/gas relief) PNV cmb#95-ferrous fumarate-FA 28 mg iron- 800 mcg tablet 1 tab PO DAILY nifedipine 90 mg tablet extended release 24hr 90 mg PO DAILY lamotrigine 200 mg tablet 200 mg PO BID atorvastatin 10 mg tablet 10 mg PO QPM tamsulosin 0.4 mg capsule 0.4 mg PO QPM amlodipine 10 mg tablet 10 mg PO DAILY levetiracetam 750 mg tablet 750 mg PO BID sertraline 50 mg tablet 50 mg PO DAILY finasteride 5 mg tablet 5 mg PO QPM Referrals: Ant Cantor DO [Primary Care Provider] - Coding Level of Care Code ED Car Head Liner Installer for Chg Johnna
--- NOTE | 2024-09-17 11:20 | CTR_ITS ---
PROCEDURE INFORMATION: Exam: CT Abdomen And Pelvis Without Contrast Exam date and time: 09/17/2024 11:42 AM Age: 74 years old Clinical indication: Other: Hypotension; Additional info: Syncopal event. Unexplained hypotension. Aníbal, patient is deaf and mute. Hypotensive event with syncope TECHNIQUE: Imaging protocol: Computed tomography of the abdomen and pelvis without contrast. Radiation optimization: All CT scans at this facility use at least one of these dose optimization techniques: automated exposure control; mA and/or kV adjustment per patient size (includes targeted exams where dose is matched to clinical indication); or iterative reconstruction. COMPARISON: CR (CHEST, ) 09/17/2024 9:30 AM RADIATION DOSE METRICS: Total DLP (mGy-cm): 389 FINDINGS: Diaphragm: Small hiatal hernia. Liver: Normal. No mass. Gallbladder and biliary ducts: Cholecystectomy. Pancreas: Normal. No ductal dilation. Spleen: Normal. No splenomegaly. Adrenal glands: Normal. No mass. Kidneys and ureters: Small right renal cyst. Stomach and bowel: Unremarkable. No obstruction. No mucosal thickening. Appendix: No evidence of appendicitis. Intraperitoneal space: Unremarkable. No free air. No significant fluid collection. Vasculature: Unremarkable. No abdominal aortic aneurysm. Lymph nodes: 2.5 x 1.7 cm mass or lymph node at the cardiac apex. Urinary bladder: Unremarkable as visualized. Reproductive: Unremarkable as visualized. Bones/joints: Unremarkable. No acute fracture. Soft tissues: Unremarkable. CT/CT abdomen pelvis wo con [id number] IMPRESSION: No acute subdiaphragmatic pathology. COMMENTS: Consistent with the [place] [employer]'s Incidental Findings Committee white paper (J Am Madyson Radiol 2018): Any incidental renal lesion less than 1 cm or classified as too small to characterize, or any incidental cystic renal lesion characterized as simple-appearing, is likely benign. No follow-up imaging is recommended for these lesions per consensus recommendations based on imaging criteria.
[2024-09-17 11:23] LABS: Reflex Lactate Order REFLEX LACTIC ORDERD
--- NOTE | 2024-09-17 11:30 | ECG_ITS ---
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 Measurements Intervals [place] Rate: 74 P: 71 TX: 148 QRS: -58 QRSD: 134 T: 78 QT: 410 QTc: 457 Interpretive Statements SINUS RHYTHM INTRAVENTRICULAR CONDUCTION DELAY [130+ ms QRS DURATION] LEFT VENTRICULAR HYPERTROPHY AND ST-T CHANGE [VOLTAGE CRITERIA PLUS ST/T ABNORMALITY] POSSIBLE SEPTAL MYOCARDIAL INFARCTION , POSSIBLY ACUTE [30 ms Q WAVE IN V1/V2] ACUTE MT Compared to ECG 09/17/2024 10:07:44 Intraventricular conduction delay now present ST (T wave) deviation now present Left anterior fascicular block no longer present Myocardial infarct finding still present Electronically Signed On 09-17-2024 19:34:13 INSURANCE FOLLOW UP SPECIALIST by Hector Peng M.D. [email or web address]
[2024-09-17 11:44] LABS: Creatine Phosphokinase 80 U/L (39-308)
[2024-09-17 11:48] LABS: Troponin 5 2HR Delta 0.00001 ABS# (0-10)
[2024-09-17 12:52] LABS: Lactic Acid level (Lactate) 1.2 mmol/L (0.5-2.2)
--- NOTE | 2024-09-17 13:16 | PC.NURSE ---
pt had urinary incontinent episode, completed full bed change, changed pt into gown and provided a brief.
--- NOTE | 2024-09-17 13:34 | P.HP_ITS ---
Providers/Chief Complaint 2 Admitting Physician: Americo Snow MD Primary Care Provider: Ant Cantor DO Chief Complaint: SOB, Unresponsive History of Present Illness Lito Trivedi is a 74 year old male presents to the emergency department after a rapid response in the podiatry clinic. From understanding he lost responsiveness over there. There was some question if they could feel a pulse or not. No CPR was initiated, and he did not fall to the floor. He was brought to the emergency department. Blood pressure was noted to be low. He has had no particular complaints, but is significantly impaired with deafness, poor vision, cognitive issues. In the emergency department he was found to have an elevated creatinine, elevated lactate, and blood pressures were somewhat soft. He did take his blood pressure medication this morning. He has not had any recent fever or illness that caregivers are aware of. He has not had any obvious chest discomfort. He had no obvious seizure activity. There was some question when he was less responsive that he may have had a left facial droop. He is now back to his baseline mental status. Review of Systems 2 General: Reports: 10 or more systems reviewed and unremarkable except in HPI and below Medications/Allergies Home Medications Medication Instructions Recorded Confirmed Last Taken Type neomycin-bacitracn Zn-polymyxn 3.5 1 applic topical DAILY PRN skin 10/20/19 09/17/24 Unknown History mg-400 unit-5,000 unit top oint irritations/cuts/abrasions pkt (Neosporin(tok-dsc-ebphx)) calcitonin (salmon) 200 1 spray intranasal (ALT) DAILY 02/27/24 09/17/24 Unknown Rx unit/actuation nasal spray #3.7 mL enalapril maleate 20 mg tablet See Rx Instructions .Route 03/24/24 09/17/24 Unknown Rx .COMPLEX #60 tabs bismuth subsalicylate 262 mg/15 mL See Rx Instructions .Route 04/30/24 09/17/24 Unknown Rx oral suspension .COMPLEX #236 mL acetaminophen 325 mg tablet 650 mg PO Q4H PRN pain or elevated 06/18/24 09/17/24 Unknown History temp > 100 aluminum-mag hydroxide-simethicone 30 ml PO PRN PRN indigestion/gas 06/18/24 09/17/24 Unknown History 200 mg-200 mg-20 mg/5 mL oral susp relief (Devi-Lanta) famotidine 40 mg tablet 40 mg PO DAILY 06/18/24 09/17/24 Unknown History magnesium hydroxide 400 mg/5 mL See Rx Instructions .Route 06/18/24 09/17/24 Unknown History oral suspension (Milk of Magnesia) .COMPLEX PRN Constipation vit no.95-ferrous 1 tab PO DAILY 06/18/24 09/17/24 Unknown History fumarate 28 mg-folic acid 800 mcg tablet chlorpheniramine-acetaminophen 2 See Rx Instructions .Route 06/24/24 09/17/24 Unknown Rx mg-325 mg tablet (Coricidin HBP .COMPLEX #20 tabs Cold and Flu) cetirizine 10 mg tablet 10 mg PO BEDTIME PRN seasonal 07/10/24 09/17/24 Unknown Rx alleriges #90 tabs lorazepam 1 mg tablet (Ativan) 1 mg sublingual Q6H PRN seizures 07/22/24 09/17/24 Unknown Rx #10 tabs magnesium oxide 400 mg (241.3 mg 400 mg PO DAILY 90 days #1 tab 08/13/24 09/17/24 Unknown Rx magnesium) tablet trazodone 50 mg tablet 50 mg PO BEDTIME #30 tabs 09/16/24 09/17/24 Unknown Rx amlodipine 10 mg tablet 10 mg PO DAILY 09/17/24 09/17/24 Unknown History atorvastatin 10 mg tablet 10 mg PO QPM cholesterol 09/17/24 09/17/24 Unknown History finasteride 5 mg tablet 5 mg PO QPM 09/17/24 09/17/24 Unknown History lamotrigine 200 mg tablet 200 mg PO BID seizures 09/17/24 09/17/24 Unknown History levetiracetam 750 mg tablet 750 mg PO BID seizures 09/17/24 09/17/24 Unknown History nifedipine 90 mg tablet,extended 90 mg PO DAILY 09/17/24 09/17/24 Unknown History release 24 hr sertraline 50 mg tablet 50 mg PO DAILY 09/17/24 09/17/24 Unknown History tamsulosin 0.4 mg capsule 0.4 mg PO QPM 09/17/24 09/17/24 Unknown History Allergies Allergy/AdvReac Type Severity Reaction Status Date / Time No Known Allergies Allergy Verified 09/17/24 08:31 PFSH Acute 2 PFSH: Medical History Epilepsy Bilateral deafness HTN (hypertension) Autistic disorder Social History Smoking and tobacco/nicotine status: unknown if used tobacco/nicotine Alcohol intake: never Vitals/I&O/Wt Last Vital Signs Pulse 81 09/17/24 13:15 Resp 21 H 09/17/24 12:28 BP 141/65 09/17/24 13:15 Pulse Ox 95 09/17/24 13:15 O2 Del Method Room Air 09/17/24 12:28 09/16/24 09/17/24 09/17/24 22:59 06:59 14:59 Intake Total 1000 / 1000 Balance 1000 / 1000 Weight last 48 hrs Weight 60.781 kg Physical Exam 2 Narrative: General Exam is a white male who opens his eyes to verbal stimuli but is not verbal to me. No distress HEENT oropharynx clear, tongue midline Neuro: No obvious focal deficits Neck is supple Cardiovascular regular rate and rhythm, no murmur Lungs clear no wheezing or crackles Abdomen is soft nontender positive bowel sounds. exams deferred Extremities no cyanosis clubbing or edema Skin no rash Data 09/17/24 09:30 09/17/24 09:30 Other Labs: Liver function tests normal with exception of alk phos of 224 CK is 80 Troponin 6 and repeat 6 Albumin and calcium are normal Urinalysis demonstrated 50-100 red blood cells Abdomen and pelvis CT demonstrated a hiatal hernia, otherwise no significant findings. No urinary obstruction head CT no acute findings, I reviewed this is well Chest x-ray no acute findings, I reviewed this as well EKG demonstrates sinus rhythm, left axis deviation, nonspecific ST-T wave changes, poor R wave progression, left anterior fascicular block A&P Assessment and plan (1) Syncope: Patient with syncope and rapid response in podiatry clinic Serial troponins Telemetry Secondary to concern of left facial droop aspirin 81 mg daily Continue statin which she is already on, increase to 40 mg Carotid ultrasound Echocardiogram Monitor for any recurrence (2) Hypotension: Borderline hypotension in the ER Secondary to syncope continue IV fluids Orthostatic blood pressures to be checked tomorrow, following fluid resuscitation Hold all blood pressure medication Plan History of seizure disorder. Continue home medications Acute kidney injury. Recheck tomorrow. No evidence of obstruction on CT Hematuria, may be secondary to urinary catheterization. No obstruction seen on CT. Urine culture pending. No indication for antibiotics at this time. Other medical problems outlined in past medical history Full code currently Lovenox for DVT prophylaxis Attestations 2 Medical Necessity Statement*: Will need less than 2 midnights for evaluation and treatment of syncope. Diagnoses Syncope R55 Hypotension I95.9 Time Spent (min) 53
--- NOTE | 2024-09-17 13:41 | USCV_ITS ---
Lito Trivedi Age: 74 Gender: M : 1950 Exam Date: 09/17/2024 19:30 Ordering Phys: Americo Snow MD Technologist: DEEPIKA [place] [facility] [place] tia patient is unresponsive / autistic in 279-1 BP: 148 / 63 HR: 64 Rhythm: Sinus Technical Quality: Adequate MEASUREMENTS (Male / Female) Normal Values 2D ECHO LV Diastolic Diameter PLAX 4.3 cm 4.2 - 5.9 / 3.9 - 5.3 cm IVS Diastolic Thickness 0.9 cm 0.6 - 1.0 / 0.6 - 0.9 cm IVS Systolic Thickness 1.7 cm LVPW Diastolic Thickness 1.2 cm 0.6 - 1.0 / 0.6 - 0.9 cm LVPW Systolic Thickness 1.3 cm LVOT Diameter 1.8 cm LV Ejection Fraction 2D Teich 66.5 % LV Ejection Fraction MOD 4C 64.4 % LV Ejection Fraction MOD 2C 49.1 % LV Ejection Fraction 2C AL 50.0 % LA Diameter 1.8 cm Aorta at Sinotubular Diameter 2.9 cm IVC Diameter 1.4 cm M-MODE LA Ao Ratio MM 0.7 AV Cusp Separation MM 1.9 cm DOPPLER AV Peak Velocity 189.0 cm/s LVOT Peak Velocity 93.0 cm/s AV Area Cont Eq vti 1.3 cm squared AV Area Cont Eq pk 1.3 cm squared MV Peak Velocity 183.0 cm/s MV Area PHT 3.4 cm squared Mitral E to A Ratio 0.8 TV Peak Velocity 269.0 cm/s TR Peak Velocity 277.0 cm/s TR Peak Gradient 30.7 mmHg TV Peak E Velocity 53.0 cm/s PV Peak Velocity 107.0 cm/s FINDINGS Left Ventricle Left ventricle is normal in size. LV systolic function is normal with EF of 55 to 60%. No regional wall motion abnormalities are seen. Grade 1 diastolic dysfunction. Right Ventricle Normal in size and function Right Atrium Normal in size Left Atrium Normal in size Mitral Valve Structurally normal mitral valve. Aortic Valve Aortic valve is thickened. Mild aortic stenosis with aortic valve area of 1.34cm2 and mean gradient across aortic valve of 7mmHg. Tricuspid Valve Mild tricuspid regurgitation. Pulmonary artery systolic pressure is normal. Pulmonic Valve Not well visualized Pericardium Normal Aorta Normal in size IVC Appears to be normal CONCLUSIONS LV systolic function is normal with EF of 55 to 60%. Grade 1 diastolic dysfunction. Mild aortic stenosis. Mild tricuspid regurgitation No comparison studies are available Ayden Boss MD (Electronically Signed) Final Date: 18 September 2024 07:43 S
--- NOTE | 2024-09-17 13:41 | USCV_ITS ---
Lito Trivedi Age: 74 Gender: M : 1950 Exam Date: 09/17/2024 18:49 Ordering Phys: Americo Snow MD Technologist: DEEPIKA [place] [facility] [place]: tia patient is unresponsive, autistic in 279-1 Risk Factors: tia patient is unresponsive, autistic in 279-1 Previous Vascular Surgery: unknown Right Brachial BP: 148 / 63 Left Brachial BP: / Right Left Velocity (cm/s) Spectral Plaque Velocity (cm/s) Spectral Plaque Syst/Diast Broadening Syst/Diast Broadening 106.40/12.90 Min None Prox CCA 147.30/ 22.40 Min None 132.50/17.50 Min None Mid CCA 118.10/ 18.00 Min None 103.30/17.50 Min None Distal CCA 107.70/ 20.00 Min None 70.50/ 8.40 Min None Prox ICA 97.50 / 11.50 Min None 87.60/ 15.50 Min None Mid ICA 93.40 / 17.60 Min None 76.80/ 15.50 Min None Distal ICA 80.80 / 17.60 Min None 112.40 None None ECA 59.60 None None 0.80 ICA/CCA 0.90 Antegrade Vertebral Antegrade 55.00/ 11.90 cm/s 57.00/ 12.00 cm/s Tri Subclavian Tri 172.4 151.3 0 0 CONCLUSIONS Right ICA stenosis <50%. Mild atheromatous plaque right carotid bulb/ICA. Left ICA stenosis <50%. Mild atheromatous plaque left carotid bulb/ICA. Intimal thickening in the common carotid arteries and internal carotid arteries bilaterally. Normal antegrade Doppler flow noted in the right vertebral artery. Normal antegrade Doppler flow noted in the left vertebral artery. Bandar Mchugh MD (Electronically Signed) Final Date: 18 September 2024 10:35 S
[2024-09-17] MEDS: aspirin 81 mg Chew Tablet 324 MG PO (14:08)
[2024-09-17] MEDS: sodium chloride 0.9% 1,000 ML 75 ML IV (14:08)
[2024-09-17] MEDS: enoxaparin 40 mg/0.4 mL Syringe SUBCUT (14:08)
[2024-09-17 16:50] LABS: Troponin 5 6HR Delta 0.00001 ng/L (0-12)
--- NOTE | 2024-09-17 17:01 | ECG_ITS ---
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 Measurements Intervals [place] Rate: 76 P: 74 MD: 175 QRS: -62 QRSD: 140 T: 82 QT: 413 QTc: 467 Interpretive Statements SINUS RHYTHM INTRAVENTRICULAR CONDUCTION DELAY [130+ ms QRS DURATION] LEFT VENTRICULAR HYPERTROPHY AND ST-T CHANGE [VOLTAGE CRITERIA PLUS ST/T ABNORMALITY] POSSIBLE SEPTAL MYOCARDIAL INFARCTION , OF INDETERMINATE AGE [30 ms Q WAVE IN V1/V2] Compared to ECG 09/17/2024 12:16:00 No significant changes Electronically Signed On 09-17-2024 19:34:44 CHAINMAN by Hector Peng M.D. [email or web address]
[2024-09-17] MEDS: lamoTRIgine 100 mg Tablet 200 MG PO (19:28)
[2024-09-17] MEDS: levETIRAcetam 500 mg Tablet 750 MG PO (19:28)
[2024-09-17] MEDS: finasteride 5 mg Tablet PO (19:28)
[2024-09-17] MEDS: tamsulosin 0.4 mg Capsule PO (19:29)
[2024-09-17] MEDS: atorvastatin 40 mg Tablet PO (20:47)
[2024-09-17] MEDS: trazodone 50 mg Tablet PO (20:47)
[2024-09-18 07:49] LABS: Basophils % 1.1 %; Eosinophils # 0.1 10^3/uL (0.0-0.8); Eosinophils % 1.7 %; Hematocrit 41.8 % (37-53); Lymphocytes % 54.7 %; Mean Corpuscular HGB Conc 32.5 g/dL (30-55); Mean Corpuscular Volume 86.2 fl (82-101); Monocytes # 0.4 10^3/uL (0.2-0.9); Monocytes % 10.8 %; Neutrophils # 1.14 10^3/uL (1.8-7.7); Neutrophils % 31.7 %; Nucleated Red Blood Cells % 0 %; Platelet Count 271 10^3/cmm (157-399); Red Blood Count 4.85 10^6/uL (3.85-5.65); Red Cell Distribution Width 13.5 % (12.1-15.1)
[2024-09-18 08:02] VITALS: BP 169/75; PULSE 67; RESP 15; TEMP 36.4; O2SAT 93
[2024-09-18 08:14] LABS: Alanine Aminotransferase 21 U/L (0-41); Albumin Level 4.5 g/dL (3.5-5.2); Alkaline Phosphatase 212 U/L (40-130); Anion Gap 15.2 (5-19); Aspartate Amino Transferase 20 U/L (0-40); Blood Urea Nitrogen 14 mg/dL (8-23); Calcium 9.9 mg/dL (8.5-10.5); Carbon Dioxide 28 mmol/L (22-29); Chloride 103 mmol/L (98-107); Creatinine Clr Calc Pharmacy 50.7386; Globulin 2.8 g/dL (1.3-4.6); Glucose 78 mg/dL (65-115); Osmolality Calculated 293 mOsm/kg (285-295); Potassium 4.2 mmol/L (3.5-5.1); Sodium 142 mmol/L (136-145); Total Bilirubin 0.3 mg/dL (0.15-1.2); Total Protein 7.3 g/dL (6.6-8.7)
[2024-09-18] MEDS: famotidine 20 mg Tablet 40 MG PO (08:46)
[2024-09-18] MEDS: lamoTRIgine 100 mg Tablet 200 MG PO (08:46)
[2024-09-18] MEDS: levETIRAcetam 500 mg Tablet 750 MG PO (08:46)
[2024-09-18] MEDS: sertraline 50 mg Tablet PO (08:47)
[2024-09-18] MEDS: aspirin 81 mg EC Tablet PO (08:47)
[2024-09-18] MEDS: magnesium oxide 400 mg tablet PO (08:47)
--- NOTE | 2024-09-18 09:06 | PM.DCS ---
Discharge Providers Date of Admission: 09/17/24 13:33 Date of Discharge: September 18, 2024 Attending Provider at Admission: Americo Snow MD Attending Provider at Discharge: Americo Snow MD Primary Care Provider: Ant Cantor DO Diagnoses at Discharge Discharge Diagnosis (1) Syncope: Status: Acute (2) Hypotension: Status: Acute Reason for Visit Reason for Visit: SOB, Unresponsive Hospital Course Hospital Course Patient presented to the hospital after syncopal episode and podiatry. Blood pressure was noted to be low, creatinine elevated. He was admitted with acute kidney injury, syncopal episode. There was some question about facial droop after his syncopal event, that resolved this he became aware. CT scan was negative for any acute change. And abdomen and pelvis CT was also done secondary to hematuria but this was a cath UA specimen. No acute findings were found on this as well. He was monitored overnight. Troponins were negative. No seizure activity was noted. Telemetry was attempted, but unable to be performed secondary patient compliance. EKG showed no arrhythmia. He had no further events and it was thought he could be discharged the next day. At that time his echo was largely normal with the exception of mild aortic stenosis, grade 1 diastolic dysfunction. Carotid duplex demonstrated no flow-limiting stenosis.. He will discharge on aspirin, statin. Blood pressure medication was reduced to just Norvasc 10 mg daily. Blood pressure should be taken twice daily, reported to his primary care provider for further adjustment of medication. Creatinine had returned to normal on discharge. Physical Exam Narrative: General Exam no distress Neck is supple no lymphadenopathy thyromegaly Cardiovascular regular rate and rhythm Lungs clear Abdomen soft Extremities no cyanosis clubbing edema Discharge Data Studies Completed and Pending Completed Studies During Hospitalization Category Date Time Status CT abdomen pelvis wo con [id number] Stat Cat Scan 09/17/24 11:[address] head wo con* [id number] Stat Cat Scan 09/17/24 09:28 Completed XR chest 1V portable [id number] Stat Exams 09/17/24 09:28 Completed CV. echo complete* [id number] Routine Ultrasound 09/17/24 13:41 Completed Pending at discharge Category Date Time Status Urine Culture Stat Lab 09/17/24 10:15 Received CV carotid duplex BI* [id number] Routine Ultrasound 09/17/24 13:41 Taken Radiology Impressions Chest X-Ray 09/17/24 09:28 IMPRESSION: No acute chest abnormality. Head CT 09/17/24 09:28 IMPRESSION: No acute intracranial abnormality. Abdomen/Pelvis CT 09/17/24 11:20 IMPRESSION: No acute subdiaphragmatic pathology. COMMENTS: Consistent with the [employer]'s Incidental Findings Committee white paper (J Am Madyson Radiol 2018): Any incidental renal lesion less than 1 cm or classified as too small to characterize, or any incidental cystic renal lesion characterized as simple-appearing, is likely benign. No follow-up imaging is recommended for these lesions per consensus recommendations based on imaging criteria. Laboratory Results WBC 3.60 10^3/uL (3.29-11.43) 09/18/24 07:43 RBC 4.85 10^6/uL (3.85-5.65) 09/18/24 07:43 Hgb 13.60 g/dL (11.27-16.99) 09/18/24 07:43 Hct 41.8 % (37-53) 09/18/24 07:43 MCV 86.2 fl (82-101) 09/18/24 07:43 MCH 28.0 pg (27-33) 09/18/24 07:43 MCHC 32.5 g/dL (30-55) 09/18/24 07:43 RDW 13.5 % (12.1-15.1) 09/18/24 07:43 Plt Count 271 10^3/cmm (157-399) 09/18/24 07:43 MPV 9.0 fL (7.4-10.4) 09/18/24 07:43 Neut % (Auto) 31.7 % 09/18/24 07:43 Lymph % (Auto) 54.7 % 09/18/24 07:43 Sebastian % (Auto) 10.8 % 09/18/24 07:43 Eos % (Auto) 1.7 % 09/18/24 07:43 Baso % (Auto) 1.1 % 09/18/24 07:43 Neut # (Auto) 1.14 10^3/uL (1.8-7.7) L 09/18/24 07:43 Lymph # (Auto) 2.0 10^3/uL (0.8-4.8) 09/18/24 07:43 Sebastian # (Auto) 0.4 10^3/uL (0.2-0.9) 09/18/24 07:43 Eos # (Auto) 0.1 10^3/uL (0.0-0.8) 09/18/24 07:43 Baso # (Auto) 0.0 10^3/uL (0.0-0.1) 09/18/24 07:43 Nucleated RBC % (auto) 0 % 09/18/24 07:43 Nucleated RBCs # 0.0 /100WBC 09/18/24 07:43 Sodium 142 mmol/L (136-145) 09/18/24 07:43 Potassium 4.2 mmol/L (3.5-5.1) 09/18/24 07:43 Chloride 103 mmol/L (98-107) 09/18/24 07:43 Carbon Dioxide 28 mmol/L (22-29) 09/18/24 07:43 Anion Gap 15.2 (5-19) 09/18/24 07:43 BUN 14 mg/dL (8-23) 09/18/24 07:43 Creatinine 1.0 mg/dL (0.7-1.2) 09/18/24 07:43 GFR Calculation Not Reportable 09/18/24 07:43 Glucose 78 mg/dL (65-115) 09/18/24 07:43 POC Glucose 155 mg/dL (70-110) H 09/17/24 09:14 Calculated Osmolality 293 mOsm/kg (285-295) 09/18/24 07:43 Lactic Acid 2.9 mmol/L (0.5-2.2) H 09/17/24 09:30 Lactic Acid (Sepsis) 1.2 mmol/L (0.5-2.2) 09/17/24 12:28 Calcium 9.9 mg/dL (8.5-10.5) 09/18/24 07:43 Magnesium 2.0 mg/dL (1.7-2.3) 09/18/24 07:43 Total Bilirubin 0.3 mg/dL (0.15-1.2) 09/18/24 07:43 AST 20 U/L (0-40) 09/18/24 07:43 ALT 21 U/L (0-41) 09/18/24 07:43 Alkaline Phosphatase 212 U/L (40-130) H 09/18/24 07:43 Creatine Kinase 80 U/L (39-308) 09/17/24 09:30 Troponin T Baseline < 6 ng/L (0-15) 09/17/24 09:30 Troponin T 120 Minute 6.00 ng/L (0-15) 09/17/24 11:18 Delta Troponin T 0.64541 ABS# (0-10) 09/17/24 11:18 Troponin T Hi Sens 6Hr 6.00 ng/L (0-15) 09/17/24 16:01 Troponin T Hi Sens 6Hr Delta 0.32822 ng/L (0-12) 09/17/24 16:01 Total Protein 7.3 g/dL (6.6-8.7) 09/18/24 07:43 Albumin 4.5 g/dL (3.5-5.2) 09/18/24 07:43 Globulin 2.8 g/dL (1.3-4.6) 09/18/24 07:43 Urine Color Yellow (Yellow) 09/17/24 10:15 Urine Appearance Clear (CLEAR) 09/17/24 10:15 Urine pH 6.0 (5-7) 09/17/24 10:15 Ur Specific Johnson 1.018 (1.005-1.030) 09/17/24 10:15 Urine Protein 1+ (Negative) A 09/17/24 10:15 Urine Glucose (UA) Negative (Normal) 09/17/24 10:15 Urine Ketones Negative (Negative) 09/17/24 10:15 Urine Blood 3+ (Negative) A 09/17/24 10:15 Urine Nitrate Negative (Negative) 09/17/24 10:15 Urine Bilirubin Negative (Negative) 09/17/24 10:15 Urine Urobilinogen 1.0 mg/dL (Negative) 09/17/24 10:15 Ur Leukocyte Esterase Trace (Negative) A 09/17/24 10:15 Urine RBC 51-100 /hpf (0-2) H 09/17/24 10:15 Urine WBC 0-5 /hpf (0-5) 09/17/24 10:15 Ur Squamous Epith Cells 0-5 /hpf (0-5) 09/17/24 10:15 Amorphous Sediment Not Reportable 09/17/24 10:15 Urine Bacteria None seen /hpf (NONE) 09/17/24 10:15 Hyaline Casts 13.63 /lpf 09/17/24 10:15 Vitals Last Vital Signs Temp 97.6 F 09/18/24 08:02 Pulse 67 09/18/24 08:02 Resp 15 09/18/24 08:02 BP 169/75 09/18/24 08:02 Pulse Ox 93 09/18/24 08:02 O2 Del Method Room Air 09/18/24 08:02 Discharge Plan Discharge Patient Disposition: Home Condition: Stable Prescriptions: New aspirin 81 mg Tablet,Delayed Release (Dr/Ec) 81 mg PO DAILY Qty: 30 0RF atorvastatin 40 mg Tablet 40 mg PO BEDTIME Qty: 30 0RF Continued Neosporin (dzr-jrv-pzxga) 3.5-400-5,000 ta-oyff-heyo ointment in packet 1 applic TOPICAL DAILY PRN (Reason: skin irritations/cuts/abrasions) calcitonin (salmon) 200 unit/actuation spray,non-aerosol 1 spray intranasal (ALT) DAILY Qty: 3.7 6RF Rx Instructions: one spray twice daily alt nostrils. bismuth subsalicylate 262 mg/15 mL suspension See Rx Instructions .ROUTE .COMPLEX Qty: 236 4RF Dose Instruction: GIVE DIRECTED ON BOTTLE FOR DIARRHEA & STOMACH RELIEF NEEDED *STOCK* Rx Instructions: GIVE DIRECTED ON BOTTLE FOR DIARRHEA & STOMACH RELIEF NEEDED *STOCK* Coricidin HBP Cold and Flu 2-325 mg tablet See Rx Instructions .ROUTE .COMPLEX Qty: 20 0RF Dose Instruction: TAKE TWO TABLETS BY MOUTH EVERY 6 HOURS NEEDED * NOT TO EXCEED 10 TABLETS in 24 hours* Rx Instructions: TAKE TWO TABLETS BY MOUTH EVERY 6 HOURS NEEDED * NOT TO EXCEED 10 TABLETS in 24 hours* cetirizine 10 mg tablet 10 mg PO BEDTIME PRN (Reason: seasonal alleriges) Qty: 90 0RF lorazepam [Ativan] 1 mg tablet 1 mg sublingual Q6H PRN (Reason: seizures) Qty: 10 1RF magnesium oxide 400 mg (241.3 mg magnesium) tablet 400 mg PO DAILY 90 Days Qty: 1 0RF trazodone 50 mg tablet 50 mg PO BEDTIME Qty: 30 2RF magnesium hydroxide [Milk of Magnesia] 400 mg/5 mL Suspension See Rx Instructions .ROUTE .COMPLEX PRN (Reason: Constipation) Rx Instructions: Take 30 mL orally as needed on 4th day if no bowel movement in 3 days. Call nurse on 5th day. acetaminophen 325 mg tablet 650 mg PO Q4H PRN (Reason: pain or elevated temp > 100) famotidine 40 mg tablet 40 mg PO DAILY alum-mag hydroxide-simeth [Devi-Lanta] 200-200-20 mg/5 mL suspension 30 ml PO PRN PRN (Reason: indigestion/gas relief) PNV cmb#95-ferrous fumarate-FA 28 mg iron- 800 mcg tablet 1 tab PO DAILY lamotrigine 200 mg tablet 200 mg PO BID tamsulosin 0.4 mg capsule 0.4 mg PO QPM amlodipine 10 mg tablet 10 mg PO DAILY levetiracetam 750 mg tablet 750 mg PO BID sertraline 50 mg tablet 50 mg PO DAILY finasteride 5 mg tablet 5 mg PO QPM Discontinued enalapril maleate 20 mg tablet See Rx Instructions .ROUTE .COMPLEX Qty: 60 5RF Dose Instruction: TAKE ONE TABLET BY MOUTH TWICE DAILY; TAKE B/P & P BEFORE ADMINISTERING; HOLD IF P < 60 OR BP < 110/70 & CALL NURSE; FOR HTN Rx Instructions: TAKE ONE TABLET BY MOUTH TWICE DAILY; TAKE B/P & P BEFORE ADMINISTERING; HOLD IF P < 60 OR BP < 110/70 & CALL NURSE; FOR HTN nifedipine 90 mg tablet extended release 24hr 90 mg PO DAILY atorvastatin 10 mg tablet 10 mg PO QPM Discharge Orders: Discharge Order (Routine); Ordered 09/18/24 Ordered By: Americo Snow Referrals: Ant Cantor DO [Primary Care Provider] - 4-7 days Discharge Diet: Usual diet and Regular Discharge Activity: Increase activity as tolerated Patient Instructions: Opioid Safety Activity Restrictions/Additional Instructions: Take all medicine as prescribed Follow-up with primary care provider 3 to 5 days Take blood pressure twice daily, call primary care provider if systolic greater than 160 for adjustment of medication. Note that his blood pressure medication has been reduced secondary to hypotension syncope and elevated creatinine when he arrived to the hospital. Discharge Attestations Time Spent in Discharge Care*: greater than 30 min Quality Metrics Clinical Quality Measures [ No reported AMI, CVA or VTE this stay] Coding Level of Care Code 42331 Total time (in minutes) for Discharge: 34 Diagnoses Syncope R55 Hypotension I95.9
[2024-09-18 12:22] VITALS: BP 164/80; PULSE 69; RESP 17; TEMP 36.4; O2SAT 93
[2024-09-18] MEDS: amlodipine 10 mg Tablet PO (12:24)
[2024-09-18 13:41] VITALS: BP 164/80; PULSE 69; RESP 17; TEMP 36.4; O2SAT 93
== END 2024-09-18 13:42 | disposition home or self-care (01) ==
LOC: ER 11:37 → MEDSURG 13:33
PROVIDERS: Admitting Provider Internal Medicine; Emergency Provider Emergency Medicine; PCP Family Medicine; Visit Provider Internal Medicine
DX: I73.9 Peripheral vascular disease, unspecified (principal); B35.1 Tinea unguium; G62.9 Polyneuropathy, unspecified; R55 Syncope and collapse; I95.9 Hypotension, unspecified; I10 Essential (primary) hypertension
CPT/HCPCS: 11721; 36415; 36416; 51701; 70450; 71045; 74176; 80053; 81001; 82550; 82962; 83605; 83735; 84484; 85025; 87086; 93005; 93306; 93880; 96360; 96372; 99285; G0378; J1650; J7030

== ENCOUNTER 2024-10-04 10:54 | Observation (INO) | payer MEDICARE, MEDICAID, SELFPAY ==
[2024-10-04] VITALS (12 sets, daily range): BP systolic 116–163; BP diastolic 54–99; PULSE 61–80; RESP 15–20; TEMP 36.6–37.1; O2SAT 91–98; BMI 26.4
[2024-10-04 11:12] LABS: Glucose Point of Care 115 mg/dL (70-110)
--- NOTE | 2024-10-04 11:40 | CTR_ITS ---
PROCEDURE INFORMATION: Exam: CT Head Without Contrast Exam date and time: 10/04/2024 12:25 PM Age: 74 years old Clinical indication: Injury or trauma; Fall; Blunt trauma (contusions or hematomas); Consciousness not specified; Additional info: Fall, hit forehead, more falls recently. Impaired coordination TECHNIQUE: Imaging protocol: Computed tomography of the head without contrast. Radiation optimization: All CT scans at this facility use at least one of these dose optimization techniques: automated exposure control; mA and/or kV adjustment per patient size (includes targeted exams where dose is matched to clinical indication); or iterative reconstruction. COMPARISON: CT head wo con* [id number] 09/17/2024 9:52 AM RADIATION DOSE METRICS: Total DLP (mGy-cm): 813.28 FINDINGS: Brain: No acute post-traumatic brain injury. Symmetric caliber of the cortical sulci. Stable small-vessel ischemic change. vascular and dural calcification. Cerebral ventricles: Mild ventriculomegaly. Paranasal sinuses: No sinus fluid. Mastoid air cells: No mastoid effusion. Bones: No acute calvarial pathology. Soft tissues: No significant scalp hematoma. When correlating with the previous study, no significant interval changes are present. CT/CT head wo con* [id number] IMPRESSION: No acute post-traumatic brain injury.
--- NOTE | 2024-10-04 11:41 | XRR_ITS ---
PROCEDURE INFORMATION: Exam: XR Chest Exam date and time: 10/04/2024 12:06 PM Age: 74 years old Clinical indication: Other: Weakness TECHNIQUE: Imaging protocol: Radiologic exam of the chest. Views: 1 view. COMPARISON: CR (CHEST, ) 09/17/2024 9:30 AM FINDINGS: Lungs: Partial obscuration of the right lung apex by the patient's mandible. Mild left basilar airspace disease. Pleural spaces: No pleural effusion. Heart/Mediastinum: No cardiomegaly. Vasculature: Ectasia of the thoracic aorta. Bones/joints: Mild degenerative change . XR/XR chest 1V [id number] IMPRESSION: Mild left basilar airspace disease.
--- NOTE | 2024-10-04 11:41 | ECG_ITS ---
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 Measurements Intervals [place] Rate: 78 P: 12 FL: 140 QRS: -37 QRSD: 123 T: 111 QT: 386 QTc: 440 Interpretive Statements SINUS RHYTHM LEFT AXIS DEVIATION [QRS AXIS < -30] POSSIBLE RIGHT VENTRICULAR CONDUCTION DELAY [RSR (QR) IN V1/V2] LEFT VENTRICULAR HYPERTROPHY AND ST-T CHANGE [VOLTAGE CRITERIA PLUS ST/T ABNORMALITY] POSSIBLE SEPTAL MYOCARDIAL INFARCTION , PROBABLY OLD [30 ms Q WAVE IN V1/V2] Compared to ECG 09/17/2024 17:01:33 Left-axis deviation now present Intraventricular conduction delay no longer present ST (T wave) deviation still present Myocardial infarct finding still present Electronically Signed On 10-06-2024 20:21:33 CLINICAL PROGRAM CONSULTANT by Ayden Boss M.D. [email or web address]
[2024-10-04 11:50] LABS: Basophils % 0.7 %; Eosinophils # 0.1 10^3/uL (0.0-0.8); Eosinophils % 1.7 %; Hematocrit 38.3 % (37-53); Lymphocytes # 1.6 10^3/uL (0.8-4.8); Lymphocytes % 38.8 %; Mean Corpuscular HGB Conc 32.6 g/dL (30-55); Mean Corpuscular Hemoglobin 27.8 pg (27-33); Mean Corpuscular Volume 85.1 fl (82-101); Mean Platelet Volume 9.1 fL (7.4-10.4); Monocytes # 0.5 10^3/uL (0.2-0.9); Monocytes % 12.8 %; Neutrophils # 1.85 10^3/uL (1.8-7.7); Neutrophils % 45.8 %; Nucleated Red Blood Cells % 0 %; Platelet Count 257 10^3/cmm (157-399); Red Cell Distribution Width 13.2 % (12.1-15.1); White Blood Count 4.05 10^3/uL (3.29-11.43)
--- NOTE | 2024-10-04 12:01 | ED_ITS ---
HPI - Weakness 2 General: Chief complaint: Weakness Stated complaint: unable to walk/ non verbal Time Seen by Provider: 10/04/24 11:17 Source: other (Caregiver of 3 years) Mode of arrival: EMS Limitations: other (Nonverbal, autistic) History of Present Illness: Patient presents emergency department today accompanied by his caregiver for evaluation treatment of concerns for acute worsening of overall weakness and mobility. Patient's caregiver reports she has been caring for him for the last 3 years. She states she knows him very well. He is typically independently ambulatory but, after a syncopal episode for which she was seen and evaluated for on the , states he has continued to decline in his overall independent function. Reports over the 24 hours previous, it has gotten significantly worse. She states he is a near full assist to ambulate now. She also feels like his balance is significantly impaired as he seems to have difficulty bringing food and liquids to his mouth. Reports having to help him eat and drink over the last 24 hours which is new. Patient has had multiple falls since his initial evaluation on the with another 1 just recently. She reports a small abrasion on his forehead from his most recent fall as well as some bruising on his back. She states that after his syncopal episode and evaluation on the , they did not find anything acutely abnormal but, she reports a continued, progressive worsening of his overall symptoms. Patient is still eating and drinking. He has not been having any vomiting or diarrhea or reported fevers. No cough or congestion. Review of Systems 2 General: Reports: 10 or more systems reviewed and unremarkable except in HPI and below PFSH ED 2 PFSH: Medical History Syncope Epilepsy Bilateral deafness HTN (hypertension) Autistic disorder Social History Smoking and tobacco/nicotine status: unknown if used tobacco/nicotine Alcohol intake: never Physical Exam 2 Const: COMMON NORMALS: no acute distress and alert OTHER: Limited by patient's underlying autism and baseline nonverbal abilities. Patient occasionally gets agitated and does motion occasionally though unable to understand patient meaning. HENMT: OTHER: At caregiver request, did evaluate patient's ears. TMs translucent without erythema or bulging. EACs with mild to moderate cerumen accumulation. Patient agitated during exam and caregiver had to hold head. Neck/C-Spine: COMMON NORMALS: full ROM Resp: COMMON NORMALS: normal respiratory effort, No retractions and No use of accessory muscles OTHER: No wheezing, no rhonchi. Cardio: COMMON NORMALS: regular rate RATE: regular rate GI: OTHER: Abdomen is soft. No indications of discomfort on palpation. Active bowel sounds. Back/Pelvis: COMMON NORMALS: thoracic and lumbar spine normal to inspection (Lays curled up in the bed with back flexed.) and thoraco-lumbar ROM normal Extremity: COMMON NORMALS: normal to inspection, full ROM and no pedal edema Neuro: SENSORIUM/ORIENTATION: Yes alert Skin: COMMON NORMALS: no rashes or lesions noted and turgor normal GENERAL SKIN EXAM: no rashes or lesions noted and turgor normal Course 2 Vital Signs: Vital signs: Vital Signs Temperature 98.8 F 10/04/24 11:03 Pulse Rate 68 10/04/24 16:48 Respiratory Rate 16 10/04/24 16:48 Blood Pressure 155/74 10/04/24 16:48 Pulse Oximetry 94 10/04/24 16:48 Oxygen Delivery Me thod Room Air 10/04/24 14:51 MDM - Weakness Medical Decision Making Patient presented to the emergency department today companied by his normal caregiver for evaluation treatment of acute worsening weakness over the last 24 hours. Caregiver indicates that the patient is typically independently ambulatory at baseline but over the last 24 hours has become a full assist. She notes symptoms started back on 09/17 after a syncopal episode while at the doctor's office. His ER evaluation there was unremarkable and he was kept for observation overnight and discharged home the next day without any acute findings. Caregiver states he has not really seem to bounce back since that time and is concerned due to the acute worsening over the last 24 hours. Patient has been afebrile. He has not had vomiting or diarrhea and is tolerating oral intake. Vital signs are stable here in the emergency department and his overall evaluation is unremarkable. However, as patient has had such rapid decline in just the last 24 hours, I did reach out to the hospitalist services. Spoke with Dr. Jeronimo regarding concerns over this patient. With an otherwise negative evaluation, he did request further evaluation and the patient's thyroid function, CK for potential statin induced muscle injury, and to check levels on the patient's seizure medications. He indicated patient could be brought in for observation if the labs were going to take an extended amount of time however, if it is a quick turnaround, could be run in the ER and patient could possibly be discharged. When I originally reached out to the lab, they indicated that patient's lab work should take 30 to 40 minutes. I did go ahead and order these labs but, as labs seem delayed, I called and they indicated they were actually send out labs and would not be available. I called the hospitalist back to discuss the delay on the labs and he agreed to bring the patient in for observation. Patient's caregiver was notified. She stated that she is not allowed to stay in the hospital with the patient due to state regulations but, recommended patient have a sitter. I did pass this along to her nurse. Patient was also getting agitated and she noted that he was sticking his hand out like he typically does when he wants nicotine. She states he has had to have nicotine patches while here in the emergency department/hospital in the past. I did order him a transdermal nicotine patch for his symptoms/agitation. We will defer further care and intervention to the hospitalist team at this time Differential Diagnosis Unlikely acute myocardial infarction, anemia, hypoglycemia, hypothyroidism, rhabdomyolysis or dehydration Lab Data 10/04/24 11:25 10/04/24 11:[address] 10/04/24 11:40 IMPRESSION: No acute post-traumatic brain injury. Chest X-Ray 10/04/24 11:41 IMPRESSION: Mild left basilar airspace disease. Laboratory Results WBC 4.05 10^3/uL (3.29-11.43) 10/04/24 11:25 RBC 4.50 10^6/uL (3.85-5.65) 10/04/24 11:25 Hgb 12.50 g/dL (11.27-16.99) 10/04/24 11:25 Hct 38.3 % (37-53) 10/04/24 11:25 MCV 85.1 fl (82-101) 10/04/24 11:25 MCH 27.8 pg (27-33) 10/04/24 11:25 MCHC 32.6 g/dL (30-55) 10/04/24 11:25 RDW 13.2 % (12.1-15.1) 10/04/24 11:25 Plt Count 257 10^3/cmm (157-399) 10/04/24 11:25 MPV 9.1 fL (7.4-10.4) 10/04/24 11:25 Neut % (Auto) 45.8 % 10/04/24 11:25 Lymph % (Auto) 38.8 % 10/04/24 11:25 [place] % (Auto) 12.8 % 10/04/24 11:25 Eos % (Auto) 1.7 % 10/04/24 11:25 Baso % (Auto) 0.7 % 10/04/24 11:25 Neut # (Auto) 1.85 10^3/uL (1.8-7.7) 10/04/24 11:25 Lymph # (Auto) 1.6 10^3/uL (0.8-4.8) 10/04/24 11:25 [place] # (Auto) 0.5 10^3/uL (0.2-0.9) 10/04/24 11:25 Eos # (Auto) 0.1 10^3/uL (0.0-0.8) 10/04/24 11:25 Baso # (Auto) 0.0 10^3/uL (0.0-0.1) 10/04/24 11:25 Nucleated RBC % (auto) 0 % 10/04/24 11:25 Nucleated RBCs # 0.0 /100WBC 10/04/24 11:25 Sodium 137 mmol/L (136-145) 10/04/24 11:25 Potassium 4.3 mmol/L (3.5-5.1) 10/04/24 11:25 Chloride 99 mmol/L (98-107) 10/04/24 11:25 Carbon Dioxide 30 mmol/L (22-29) H 10/04/24 11:25 Anion Gap 12.3 (5-19) 10/04/24 11:25 BUN 12 mg/dL (8-23) 10/04/24 11:25 Creatinine 1.1 mg/dL (0.7-1.2) 10/04/24 11:25 GFR Calculation Not Reportable 10/04/24 11:25 Glucose 120 mg/dL (65-115) H 10/04/24 11:25 POC Glucose 115 mg/dL (70-110) H 10/04/24 11:09 Calculated Osmolality 285 mOsm/kg (285-295) 10/04/24 11:25 Calcium 9.9 mg/dL (8.5-10.5) 10/04/24 11:25 Magnesium 2.1 mg/dL (1.7-2.3) 10/04/24 11:25 Total Bilirubin 0.2 mg/dL (0.15-1.2) 10/04/24 11:25 AST 19 U/L (0-40) 10/04/24 11:25 ALT 21 U/L (0-41) 10/04/24 11:25 Alkaline Phosphatase 224 U/L (40-130) H 10/04/24 11:25 Creatine Kinase 118 U/L (39-308) 10/04/24 13:53 Troponin T Baseline < 6 ng/L (0-15) 10/04/24 11:25 Troponin T 120 Minute 6.00 ng/L (0-15) 10/04/24 13:25 Delta Troponin T 0.57645 ABS# (0-10) 10/04/24 13:25 Total Protein 6.7 g/dL (6.6-8.7) 10/04/24 11:25 Albumin 4.4 g/dL (3.5-5.2) 10/04/24 11:25 Globulin 2.3 g/dL (1.3-4.6) 10/04/24 11:25 TSH 0.82 uIU/mL (0.27-4.20) 10/04/24 13:53 Urine Color Yellow (Yellow) 10/04/24 13:46 Urine Appearance Clear (CLEAR) 10/04/24 13:46 Urine pH 6.0 (5-7) 10/04/24 13:46 Ur Specific [place] 1.019 (1.005-1.030) 10/04/24 13:46 Urine Protein Negative (Negative) 10/04/24 13:46 Urine Glucose (UA) Negative (Normal) 10/04/24 13:46 Urine Ketones Negative (Negative) 10/04/24 13:46 Urine Blood 1+ (Negative) A 10/04/24 13:46 Urine Nitrate Negative (Negative) 10/04/24 13:46 Urine Bilirubin Negative (Negative) 10/04/24 13:46 Urine Urobilinogen 1.0 mg/dL (Negative) 10/04/24 13:46 Ur Leukocyte Esterase Negative (Negative) 10/04/24 13:46 Urine RBC 10-15 /hpf (0-2) H 10/04/24 13:46 Urine WBC Rare /hpf (0-5) 10/04/24 13:46 Ur Squamous Epith Cells None /hpf (0-5) 10/04/24 13:46 Amorphous Sediment Not Reportable 10/04/24 13:46 Urine Bacteria 2+ /hpf (NONE) H 10/04/24 13:46 Urine Mucus 1+ /hpf 10/04/24 13:46 Coronavirus (PCR) Negative (Negative) 10/04/24 12:37 Influenza A (PCR) Negative (Negative) 10/04/24 12:37 Influenza Type B (PCR) Negative (Negative) 10/04/24 12:37 RSV (PCR) Negative (Negative) 10/04/24 12:37 All radiology interpretation(s) finalized by discharge Discharge Plan Discharge Patient Disposition: Placed in Observation Clinical Impression: Weakness, Bilateral deafness, Autistic disorder Coding Level of Care Code ED Artificial [employer] Making 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 for Chg Fwd Related Data Home Medications Medication Instructions Recorded Confirmed neomycin-bacitracn Zn-polymyxn 3.5 1 applic topical DAILY PRN skin 10/20/19 10/04/24 mg-400 unit-5,000 unit top oint irritations/cuts/abrasions pkt (Neosporin(hiw-pal-taomx)) acetaminophen 325 mg tablet 650 mg PO Q4H PRN pain or elevated 06/18/24 10/04/24 temp > 100 aluminum-mag hydroxide-simethicone 30 ml PO PRN PRN indigestion/gas 06/18/24 10/04/24 200 mg-200 mg-20 mg/5 mL oral susp relief (Devi-Lanta) famotidine 40 mg tablet 40 mg PO DAILY 06/18/24 10/04/24 magnesium hydroxide 400 mg/5 mL See Rx Instructions .Route 06/18/24 10/04/24 oral suspension (Milk of Magnesia) .COMPLEX PRN Constipation vit no.95-ferrous 1 tab PO DAILY 06/18/24 10/04/24 fumarate 28 mg-folic acid 800 mcg tablet amlodipine 10 mg tablet 10 mg PO DAILY 09/17/24 10/04/24 finasteride 5 mg tablet 5 mg PO QPM 09/17/24 10/04/24 lamotrigine 200 mg tablet 200 mg PO BID seizures 09/17/24 10/04/24 sertraline 50 mg tablet 50 mg PO DAILY 09/17/24 10/04/24 tamsulosin 0.4 mg capsule 0.4 mg PO QPM 09/17/24 10/04/24 Previous Rx's Medication Instructions Recorded calcitonin (salmon) 200 1 spray intranasal (ALT) DAILY 02/27/24 unit/actuation nasal spray #3.7 mL bismuth subsalicylate 262 mg/15 mL See Rx Instructions .Route 04/30/24 oral suspension .COMPLEX #236 mL chlorpheniramine-acetaminophen 2 See Rx Instructions .Route 06/24/24 mg-325 mg tablet (Coricidin HBP .COMPLEX #20 tabs Cold and Flu) cetirizine 10 mg tablet 10 mg PO BEDTIME PRN seasonal 07/10/24 alleriges #90 tabs lorazepam 1 mg tablet (Ativan) 1 mg sublingual Q6H PRN seizures 07/22/24 #10 tabs magnesium oxide 400 mg (241.3 mg 400 mg PO DAILY 90 days #1 tab 08/13/24 magnesium) tablet trazodone 50 mg tablet 50 mg PO BEDTIME #30 tabs 09/16/24 aspirin 81 mg tablet,delayed 81 mg PO DAILY #30 tabs 09/18/24 release atorvastatin 40 mg tablet 40 mg PO BEDTIME #30 tabs 09/18/24 enalapril maleate 10 mg tablet 10 mg PO DAILY #30 tabs 09/25/24 levetiracetam 750 mg tablet See Rx Instructions .Route 09/30/24 .COMPLEX #60 tabs Allergies Allergy/AdvReac Type Severity Reaction Status Date / Time No Known Allergies Allergy Verified 09/17/24 08:31
[2024-10-04 12:06] LABS: Alanine Aminotransferase 21 U/L (0-41); Albumin Level 4.4 g/dL (3.5-5.2); Alkaline Phosphatase 224 U/L (40-130); Anion Gap 12.3 (5-19); Aspartate Amino Transferase 19 U/L (0-40); Blood Urea Nitrogen 12 mg/dL (8-23); Calcium 9.9 mg/dL (8.5-10.5); Carbon Dioxide 30 mmol/L (22-29); Chloride 99 mmol/L (98-107); Creatinine Clr Calc Pharmacy 50.0117; Globulin 2.3 g/dL (1.3-4.6); Glucose 120 mg/dL (65-115); Magnesium 2.1 mg/dL (1.7-2.3); Osmolality Calculated 285 mOsm/kg (285-295); Potassium 4.3 mmol/L (3.5-5.1); Sodium 137 mmol/L (136-145); Total Bilirubin 0.2 mg/dL (0.15-1.2); Total Protein 6.7 g/dL (6.6-8.7)
[2024-10-04 12:07] LABS: Troponin(5th) Baseline < 6 ng/L (0-15)
--- NOTE | 2024-10-04 13:41 | ECG_ITS ---
[facility] Test Date: 2024-10-04 Pat Name: Lito Trivedi Department: Room: Gender: Male Support Manager: : 1950 Requested By: Harriet Melchor Order Number: [id number] Romy MD: Ayden Boss M.D. Measurements Intervals [place] Rate: 72 P: 123 MI: 166 QRS: 237 QRSD: 133 T: 120 QT: 407 QTc: 447 Interpretive Statements SINUS RHYTHM ARM LEADS REVERSED [INVERTED P AND QRS IN I] Compared to ECG 10/04/2024 12:16:50 Left-axis deviation no longer present Left ventricular hypertrophy no longer present ST (T wave) deviation no longer present Myocardial infarct finding no longer present Electronically Signed On 10-06-2024 20:33:43 DOG RAISER by Ayden Boss M.D. [email or web address]
[2024-10-04 13:42] LABS: Covid PCR NEGATIVE (Negative); Influenza A NEGATIVE (Negative); Influenza B NEGATIVE (Negative); Respiratory Syncytial Virus Ce NEGATIVE (Negative)
[2024-10-04 13:59] LABS: Bilirubin Urine Negative (Negative); Blood Urine 1+ (Negative); Glucose Urine UA Negative (Normal); Ketones Urine Negative (Negative); Leukocyte Esterase Urine Negative (Negative); Nitrate Urine Negative (Negative); Protein Urine Negative (Negative); Specific Gravity, Urine 1.019 (1.005-1.030); Urine Appearance Clear (CLEAR); Urine Color Yellow (Yellow)
[2024-10-04 14:04] LABS: Add Urine Microscopic? YES
[2024-10-04 14:22] LABS: Troponin 5 2HR Delta 0.00001 ABS# (0-10)
[2024-10-04 14:27] LABS: UA Manual Slide Review YES; UA Slide Review UA Slide Review Perf; WBC Urine RARE /hpf (0-5)
[2024-10-04 14:28] LABS: Add Urine Culture? Yes; Bacteria Urine 2+ /hpf; Mucus Urine 1+ /hpf
[2024-10-04 15:49] LABS: Thyroid Stimulating Hormone 0.82 uIU/mL (0.27-4.20)
[2024-10-04 15:50] LABS: Creatine Phosphokinase 118 U/L (39-308)
[2024-10-04] MEDS: nicotine 14 mg Patch 1 PATCH TRANSDERMA (17:32)
--- NOTE | 2024-10-04 17:57 | ECG_ITS ---
[facility] Test Date: 2024-10-04 Pat Name: Lito Trivedi Department: Room: Gender: Male Podiatry Assistant: : 1950 Requested By: Harriet Melchor Order Number: [id number] Stanton MD: Ayden Boss M.D. Measurements Intervals [place] Rate: 64 P: 43 CA: 158 QRS: -55 QRSD: 135 T: 42 QT: 405 QTc: 421 Interpretive Statements SINUS RHYTHM INTRAVENTRICULAR CONDUCTION DELAY [130+ ms QRS DURATION] VOLTAGE CRITERIA FOR LVH [MEETS CRITERIA IN ONE OF: R(aVL), S(V1), R(V5), R(V5/V6)+S(V1)] POSSIBLE SEPTAL MYOCARDIAL INFARCTION , OF INDETERMINATE AGE [30 ms Q WAVE IN V1/V2] POSSIBLE LATERAL MYOCARDIAL INFARCTION , OF INDETERMINATE AGE [30 ms Q WAVE IN I/aVL/V5/V6] Compared to ECG 10/04/2024 13:56:36 Intraventricular conduction delay now present Left ventricular hypertrophy now present Myocardial infarct finding now present Electronically Signed On 10-06-2024 20:33:02 DELIVERY DEPARTMENT SUPERVISOR by Ayden Boss M.D. [email or web address]
--- NOTE | 2024-10-04 18:36 | P.HP_ITS ---
Providers/Chief Complaint 2 Primary Care Provider: Ant Cantor DO Chief Complaint: unable to walk/ non verbal History of Present Illness 74-year-old gentleman with severe autism living in receiving care in a care home with an episode of syncope, possible TIA with facial droop which resolved spontaneously on 09/17 during which time was observed in the hospital with workup that included CT head, carotid Doppler, CT abdomen pelvis, has continued on aspirin, a statin dose was doubled from 20 to 40 mg. He returns to ER for evaluation due to developing generalized weakness, particularly worsening over the past 2 weeks, currently to the point that he is requiring two-person assist worse previously independently ambulatory. He is weak and requires assistance with standing up, and with walking requires constant support, falling over seems in particular backwards. He is deaf and mute at baseline, does not verbalize any complaints, although also does not appear to have grimaced or shoulder discomfort. He had 1 episode of diarrhea yesterday, but other than that has not been noticed to have any additional acute changes. Has not had any witnessed seizure episodes. Workup was started in ER with unremarkable vitals, with low normal heart rate 61 bpm, maintaining blood pressure, afebrile, without leukocytosis, with unremarkable electrolytes, renal function, glucose 120, AP 224, 10-15RBC in urine. Previously 51-100, urine culture was negative. CT abdomen pelvis with unremarkable kidneys and ureters, small right renal cyst. In ER he is awake and alert, shakes my hand. Moving all extremities, not in distress. Accompanied by caregiver who provides history. He had a fall on 09/25 hitting the back of his head. Review of Systems 2 General: Reports: ROS unobtainable due to medical condition Medications/Allergies Home Medications Medication Instructions Recorded Confirmed Last Taken Type neomycin-bacitracn Zn-polymyxn 3.5 1 applic topical DAILY PRN skin 10/20/19 10/04/24 Unknown History mg-400 unit-5,000 unit top oint irritations/cuts/abrasions pkt (Neosporin(kvq-gug-vhxya)) calcitonin (salmon) 200 1 spray intranasal (ALT) DAILY 02/27/24 10/04/24 10/03/24 Rx unit/actuation nasal spray #3.7 mL bismuth subsalicylate 262 mg/15 mL See Rx Instructions .Route 04/30/24 10/04/24 Unknown Rx oral suspension .COMPLEX #236 mL acetaminophen 325 mg tablet 650 mg PO Q4H PRN pain or elevated 06/18/24 10/04/24 Unknown History temp > 100 aluminum-mag hydroxide-simethicone 30 ml PO PRN PRN indigestion/gas 06/18/24 10/04/24 Unknown History 200 mg-200 mg-20 mg/5 mL oral susp relief (Devi-Lanta) famotidine 40 mg tablet 40 mg PO DAILY 06/18/24 10/04/24 10/04/24 History magnesium hydroxide 400 mg/5 mL See Rx Instructions .Route 06/18/24 10/04/24 Unknown History oral suspension (Milk of Magnesia) .COMPLEX PRN Constipation vit no.95-ferrous 1 tab PO DAILY 06/18/24 10/04/24 10/04/24 History fumarate 28 mg-folic acid 800 mcg tablet chlorpheniramine-acetaminophen 2 See Rx Instructions .Route 06/24/24 10/04/24 Unknown Rx mg-325 mg tablet (Coricidin HBP .COMPLEX #20 tabs Cold and Flu) cetirizine 10 mg tablet 10 mg PO BEDTIME PRN seasonal 07/10/24 10/04/24 10/03/24 Rx alleriges #90 tabs lorazepam 1 mg tablet (Ativan) 1 mg sublingual Q6H PRN seizures 07/22/24 10/04/24 Unknown Rx #10 tabs magnesium oxide 400 mg (241.3 mg 400 mg PO DAILY 90 days #1 tab 08/13/24 10/04/24 10/04/24 Rx magnesium) tablet trazodone 50 mg tablet 50 mg PO BEDTIME #30 tabs 09/16/24 10/04/24 10/03/24 Rx amlodipine 10 mg tablet 10 mg PO DAILY 09/17/24 10/04/24 10/04/24 History finasteride 5 mg tablet 5 mg PO QPM 09/17/24 10/04/24 10/03/24 History lamotrigine 200 mg tablet 200 mg PO BID seizures 09/17/24 10/04/24 10/04/24 History sertraline 50 mg tablet 50 mg PO DAILY 09/17/24 10/04/24 10/04/24 History tamsulosin 0.4 mg capsule 0.4 mg PO QPM 09/17/24 10/04/24 10/03/24 History aspirin 81 mg tablet,delayed 81 mg PO DAILY #30 tabs 09/18/24 10/04/24 10/04/24 Rx release atorvastatin 40 mg tablet 40 mg PO BEDTIME #30 tabs 09/18/24 10/04/24 10/03/24 Rx enalapril maleate 10 mg tablet 10 mg PO DAILY #30 tabs 09/25/24 10/04/24 10/04/24 Rx levetiracetam 750 mg tablet See Rx Instructions .Route 09/30/24 10/04/24 10/04/24 Rx .COMPLEX #60 tabs Allergies Allergy/AdvReac Type Severity Reaction Status Date / Time No Known Allergies Allergy Verified 09/17/24 08:31 PFSH Acute 2 PFSH: Medical History Syncope Epilepsy Bilateral deafness HTN (hypertension) Autistic disorder Social History Smoking and tobacco/nicotine status: unknown if used tobacco/nicotine Alcohol intake: never Vitals/I&O/Wt Last Vital Signs Temp 98.8 F 10/04/24 11:03 Pulse 68 10/04/24 16:48 Resp 16 10/04/24 16:48 BP 155/74 10/04/24 16:48 Pulse Ox 94 10/04/24 16:48 O2 Del Method Room Air 10/04/24 14:51 Weight last 48 hrs Weight 61.235 kg Physical Exam 2 Const: COMMON NORMALS: alert EXAM LIMITATIONS: behavioral limitations G ENERAL APPEARANCE: not cooperative ORIENTATION/CONSCIOUSNESS: Yes awake HENMT: COMMON NORMALS: oropharynx normal Neck/C-Spine: COMMON NORMALS: no JVD Resp: COMMON NORMALS: normal respiratory effort and clear to auscultation bilaterally AUSCULTATION: clear to auscultation bilaterally Cardio: COMMON NORMALS: no JVD, regular rhythm, S1 normal heart sound present, S2 normal heart sound present and No murmurs present (Cardio) RHYTHM: regular rhythm HEART SOUNDS: S1 normal heart sound present and S2 normal heart sound present GI: COMMON NORMALS: Normal to inspection, nondistended, normoactive bowel sounds present, Soft to palpation and non-tender PALPATION: Yes Soft to palpation Extremity: COMMON NORMALS: no joint enlargement and no pedal edema Neuro: COMMON NORMALS: moves all extremities SENSORIUM/ORIENTATION: Yes alert Data 10/04/24 11:25 10/04/24 11:25 A&P Assessment and plan (1) Weakness: Severe generalized weakness, previous normally ambulatory on his own, now requiring max assistance to ambulate, falling over, mostly backwards. Had an episode of syncope, possible TIA with left-sided facial droop back on 09/17 at which time had workup that included CT head, [place], chest x-ray, carotid duplex. His dose of atorvastatin was doubled after that. He did since then had a fall on 09/25 hitting the back of his head. He had 1 episode of diarrhea. No witnessed seizure episodes. Otherwise workup so far unremarkable, afebrile, without leukocytosis, mild hyperglycemia 120. Will check A1c. Reviewed vitals, CBC, CMP, magnesium, CK request, troponin, TSH, UA, coronavirus, influenza, RSV PCR, head CT, chest x-ray, EKG, however provider note, discussed with ER provider. Pending lamotrigine and levetiracetam levels. CK not elevated, but statin myopathy is possible as discussed. Will give a holiday from statin, see if his symptoms improved. Additionally will assess orthostatic blood pressures. Possible mild dehydration, noted bicarb 30, alk phos mildly higher than usual to 24, no abdominal tenderness on palpation, T. bili is normal, CT abdomen pelvis on 09/17 with status post cholecystectomy. Will give gentle IV hydration. Assess A1c for possibility of diabetes. Follow- up seizure med levels for possible toxicity, although this seems less likely as he otherwise appears alert and awake. Will continue seizure medicines for now, however, monitor for risk of worsening symptoms with possibility of seizure medicine toxicity. Discussed possibility of posterior circulation CVA, though this will be difficult to assess. He is awake and alert, moving all extremities in bed, repositioning by himself, and appears to have unilateral weakness, I do not appreciate any facial droop currently. He does not appear to have neglect. His caregiver does report that when he is trying to eat he was missing his mouth with a spoon. Possible component of dysmetria. No obvious CVA on head CT, considered MRI, but as per discussion with caregiver very unlikely to tolerate the test to provide readable images. Already on aspirin, statin. Discussed adding Plavix for 21 days. Follow-up with neurology after discharge. Straight cath for urine sample in ER. Will monitor intake and output. Monitor for any signs of urine retention. Chest x-ray mild left basilar airspace disease, but without obvious pneumonia, clinically not suggestive of pneumonia. Possible atelectasis. Monitor for change in symptoms. Plan Diarrhea: 1 episode of diarrhea yesterday. Will request C. difficile. Monitor for additional diarrhea episodes. Severe autism. 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 Redirectable. Previously independently ambulatory. Normally takes mechanical soft diet. HTN: Monitor blood pressure. Continue multipin, enalapril. Attestations 2 Medical Necessity Statement*: Place in observation for additional assessment of progressive acute generalized weakness with inability to ambulate requiring max assist for ambulation, and a gentleman with severe autism, deafness, mutism with recent syncopal episode possible TIA and additional comorbidities as above. Diagnoses Weakness R53.1
[2024-10-04 20:04] LABS: Estmated Average Glucose 123; Hemoglobin A1C 5.9 % (4.0-6.0)
--- NOTE | 2024-10-04 21:14 | PC.NURSE ---
Unable to complete Admission Teaching, Suicide Risk Assessment, and SDOH. Patient non verbal and deaf. Caregiver, Deidre Schulz, at [facility] called by this nurse and answered Admission questions.
[2024-10-04] MEDS: enoxaparin 30 mg/0.3 mL Syringe SUBCUT (21:24)
[2024-10-04] MEDS: trazodone 50 mg Tablet PO (21:24)
[2024-10-04] MEDS: levETIRAcetam 500 mg Tablet 750 MG PO (21:24)
[2024-10-05 03:58] VITALS: BP 145/72; PULSE 71; RESP 18; TEMP 36.9; O2SAT 97
[2024-10-05 07:12] LABS: Basophils % 0.6 %; Eosinophils # 0.1 10^3/uL (0.0-0.8); Eosinophils % 3.5 %; Hematocrit 40.9 % (37-53); Lymphocytes # 1.8 10^3/uL (0.8-4.8); Mean Corpuscular HGB Conc 32.8 g/dL (30-55); Mean Corpuscular Hemoglobin 27.7 pg (27-33); Mean Corpuscular Volume 84.5 fl (82-101); Mean Platelet Volume 9.2 fL (7.4-10.4); Monocytes # 0.5 10^3/uL (0.2-0.9); Monocytes % 14.7 %; Neutrophils % 27.9 %; Nucleated Red Blood Cells % 0 %; Platelet Count 276 10^3/cmm (157-399); Red Blood Count 4.84 10^6/uL (3.85-5.65); Red Cell Distribution Width 12.8 % (12.1-15.1); White Blood Count 3.47 10^3/uL (3.29-11.43)
[2024-10-05 07:25] LABS: Neutrophils # 0.97 10^3/uL (1.8-7.7)
[2024-10-05 07:27] LABS: Anion Gap 15.1 (5-19); Blood Urea Nitrogen 9 mg/dL (8-23); Calcium 9.8 mg/dL (8.5-10.5); Carbon Dioxide 29 mmol/L (22-29); Chloride 97 mmol/L (98-107); Creatinine Clr Calc Pharmacy 50.3477; Glucose 91 mg/dL (65-115); Osmolality Calculated 282 mOsm/kg (285-295); Potassium 4.1 mmol/L (3.5-5.1); Sodium 137 mmol/L (136-145)
[2024-10-05 08:00] VITALS: BP 162/76; PULSE 63; RESP 14; TEMP 36.6; O2SAT 96
[2024-10-05] MEDS: amlodipine 10 mg Tablet PO (08:47)
[2024-10-05] MEDS: levETIRAcetam 500 mg Tablet 750 MG PO ×2 (08:47→17:34)
[2024-10-05] MEDS: lisinopril 10 mg Tablet PO (08:47)
[2024-10-05] MEDS: aspirin 81 mg EC Tablet PO (08:48)
[2024-10-05] MEDS: lamoTRIgine 100 mg Tablet 200 MG PO (08:48)
[2024-10-05] MEDS: famotidine 20 mg Tablet 40 MG PO (08:48)
[2024-10-05] MEDS: sertraline 50 mg Tablet PO (08:48)
[2024-10-05] MEDS: calcitonin nasal 200 unit/spray 3.7 mL Btl 1 SPRAY NASAL (08:51)
[2024-10-05 10:27] LABS: LAB Peripheral Smear Sent for Review
[2024-10-05 11:55] LABS: Erythrocyte Sedimentation Rate 27 mm/hr (0-10)
[2024-10-05 12:00] VITALS: BP 136/67; PULSE 64; RESP 16; TEMP 36.8; O2SAT 95
[2024-10-05 12:03] VITALS: BP 130/80; BP 136/67; BP 142/70
[2024-10-05 16:00] VITALS: BP 149/74; PULSE 70; RESP 16; TEMP 37.1; O2SAT 96
[2024-10-05] MEDS: lamoTRIgine 100 mg Tablet PO (17:33)
[2024-10-05] MEDS: tamsulosin 0.4 mg Capsule PO (17:34)
[2024-10-05] MEDS: finasteride 5 mg Tablet PO (17:34)
--- NOTE | 2024-10-05 17:53 | CTR_ITS ---
PROCEDURE INFORMATION: Exam: CT Lumbar Spine Without Contrast Exam date and time: 10/05/2024 6:21 PM Age: 74 years old Clinical indication: Pain and injury or trauma; Lumbago; Patient HX: Weakness; Upper/lower back pain post fall; Unable to ambulate post fall TECHNIQUE: Imaging protocol: Computed tomography of the lumbar spine without contrast. Radiation optimization: All CT scans at this facility use at least one of these dose optimization techniques: automated exposure control; mA and/or kV adjustment per patient size (includes targeted exams where dose is matched to clinical indication); or iterative reconstruction. COMPARISON: CT thoracic spin wo con* [id number] 10/05/2024 6:19 PM RADIATION DOSE METRICS: Total DLP (mGy-cm): 423.1 FINDINGS: Bones/joints: Right iliac wing cortical thickening and prominent trabeculae somewhat visualized, concerning for Paget's disease, similar to prior exam. L1-L2: No significant disc bulge or herniation. No severe spinal canal stenosis. No significant neural foraminal narrowing. L2-L3: No significant disc bulge or herniation. No severe spinal canal stenosis. No significant neural foraminal narrowing. L3-L4: L3-L4 broad-based disc bulge with mild bilateral foraminal narrowing. L4-L5: L4-L5 broad-based disc bulge with moderate spinal canal and moderate to severe bilateral foraminal narrowing. L5-S1: L5-S1 broad-based disc bulge with moderate to severe bilateral foraminal narrowing. Gallbladder and biliary ducts: Cholecystectomy. Vasculature: Aortic atherosclerotic calcifications. Soft tissues: Unremarkable. CT/CT lumbar spine wo con* [id number] IMPRESSION: 1. L3-L4 broad-based disc bulge with mild bilateral foraminal narrowing. 2. L4-L5 broad-based disc bulge with moderate spinal canal and moderate to severe bilateral foraminal narrowing. 3. L5-S1 broad-based disc bulge with moderate to severe bilateral foraminal narrowing. 4. Cholecystectomy. 5. Aortic atherosclerotic calcifications. 6. Right iliac wing cortical thickening and prominent trabeculae somewhat visualized, concerning for Paget's disease, similar to prior exam.
--- NOTE | 2024-10-05 17:53 | CTR_ITS ---
PROCEDURE INFORMATION: Exam: CT Thoracic Spine Without Contrast Exam date and time: 10/05/2024 6:19 PM Age: 74 years old Clinical indication: Weakness; Additional info: Weak, cannot stand/ambulate TECHNIQUE: Imaging protocol: Computed tomography of the thoracic spine without contrast. Radiation optimization: All CT scans at this facility use at least one of these dose optimization techniques: automated exposure control; mA and/or kV adjustment per patient size (includes targeted exams where dose is matched to clinical indication); or iterative reconstruction. COMPARISON: CT abdomen pelvis con [id number] 09/17/2024 11:42 AM RADIATION DOSE METRICS: Total DLP (mGy-cm): 736.01 FINDINGS: Bones/joints: Multilevel [id number]-[id number] disc space narrowing and productive degenerative endplate changes throughout the spine. T1-T2: No significant disc bulge or herniation. No severe spinal canal stenosis. No significant neural foraminal narrowing. T2-T3: No significant disc bulge or herniation. No severe spinal canal stenosis. No significant neural foraminal narrowing. T3-T4: No significant disc bulge or herniation. No severe spinal canal stenosis. No significant neural foraminal narrowing. T4-T5: No significant disc bulge or herniation. No severe spinal canal stenosis. No significant neural foraminal narrowing. T5-T6: No significant disc bulge or herniation. No severe spinal canal stenosis. No significant neural foraminal narrowing. T6-T7: No significant disc bulge or herniation. No severe spinal canal stenosis. No significant neural foraminal narrowing. T7-T8: No significant disc bulge or herniation. No severe spinal canal stenosis. No significant neural foraminal narrowing. T8-T9: No significant disc bulge or herniation. No severe spinal canal stenosis. No significant neural foraminal narrowing. T9-T10: No significant disc bulge or herniation. No severe spinal canal stenosis. No significant neural foraminal narrowing. T10-T11: No significant disc bulge or herniation. No severe spinal canal stenosis. No significant neural foraminal narrowing. T11-T12: No significant disc bulge or herniation. No severe spinal canal stenosis. No significant neural foraminal narrowing. T12-L1: No significant disc bulge or herniation. No severe spinal canal stenosis. No significant neural foraminal narrowing. Lungs: Emphysematous changes suspected. Bilateral dependent atelectasis versus infiltrate. Heart: Cardiomegaly. Gallbladder and biliary ducts: Cholecystectomy. Other findings: Coronary artery atherosclerotic calcifications. CT/CT thoracic spin wo con* [id number] IMPRESSION: 1. Negative for gross evidence of disc herniation or spinal canal narrowing, consider further evaluation with an MRI. 2. Multilevel wmcj-eu-ndqector disc space narrowing and productive degenerative endplate changes throughout the spine. 3. Cardiomegaly. 4. Coronary artery atherosclerotic calcifications. 5. Emphysematous changes suspected. 6. Bilateral dependent atelectasis versus infiltrate. 7. Cholecystectomy.
--- NOTE | 2024-10-05 18:31 | USR_ITS ---
PROCEDURE INFORMATION: Exam: US Duplex Bilateral Extracranial Arteries; Complete; Carotid Arteries Exam date and time: 10/05/2024 9:58 AM Age: 74 years old Clinical indication: Screening exam; Additional info: Repeat to assess for vertebral dissection after fall TECHNIQUE: Imaging protocol: Real-time duplex ultrasound scan of the bilateral extracranial arteries combining lord scale, color Doppler and spectral waveform analysis with image documentation. Complete exam. Exam focused on the carotid arteries. COMPARISON: CT head wo con* [id number] 10/04/2024 12:25 PM FINDINGS: Right common carotid artery: Mild plaque. No high-grade stenosis. Peak systolic velocity 89 cm/s.. Right internal carotid artery: Unremarkable. No occlusion or stenosis. Waveforms are normal. Peak systolic velocity 107 cm/s. Right ICA/CCA ratio: Within normal limits. 1.2 Right external carotid artery: No stenosis in the origin. Right vertebral artery: Unremarkable. Antegrade flow. Left common carotid artery: Unremarkable. No occlusion or stenosis. Waveforms are normal. Peak systolic velocity 96 cm/s. Left internal carotid artery: Unremarkable. No occlusion or stenosis. Waveforms are normal. Peak systolic velocity of 123 cm/s. Left ICA/CCA ratio: Within normal limits. 1.3. Left external carotid artery: No stenosis in the origin. Left vertebral artery: Unremarkable. Antegrade flow. US/CV carotid duplex BI* [id number] IMPRESSION: No carotid arterial stenosis. REFERENCES: SRU CRITERIA. The degree of internal carotid artery stenosis is based on criteria defined by the Society of Radiologists in Ultras[employer] (SRU). Normal is no stenosis. Mild is less than 50% stenosis. Moderate is 50-69% stenosis. Severe is greater than 69% stenosis to near occlusion. Near occlusion is a markedly narrowed lumen. Total occlusion is no detectable patent lumen.
[2024-10-05 19:47] VITALS: BP 141/77; PULSE 71; RESP 16; TEMP 36.6; O2SAT 95
--- NOTE | 2024-10-05 20:16 | P.PN_ITS ---
Subjective 2 Subjective: He just had his orthostatic blood pressures measured, is getting back into bed. He does not appear in distress, but he is weak, sitting at the edge of the bed, requires assistance to try to push himself up further back into the bed and to lift his legs onto the bed. He is able to scoot himself after a few attempts in the bed to reposition himself in the right way up. He is nonverbal at baseline. Vitals/I&O/Wt Last Vital Signs Temp 97.9 F 10/05/24 19:47 Pulse 71 10/05/24 19:47 Resp 16 10/05/24 19:47 BP 141/77 10/05/24 19:47 Pulse Ox 95 10/05/24 19:47 O2 Del Method Room Air 10/05/24 19:47 10/05/24 10/05/24 10/05/24 06:59 14:59 22:59 Intake Total 200 / 200 25 / 225 Balance 200 / 200 25 / 225 Weight last 48 hrs Weight 62.312 kg Weight 61.235 kg Weight 61.235 kg Physical Exam 2 Const: COMMON NORMALS: alert EXAM LIMITATIONS: behavioral limitations O RIENTATION/CONSCIOUSNESS: Yes awake OTHER: Does not avoiding although does not cooperate with examination. HENMT: COMMON NORMALS: oropharynx normal Neck/C-Spine: COMMON NORMALS: no JVD Resp: COMMON NORMALS: normal respiratory effort and clear to auscultation bilaterally AUSCULTATION: clear to auscultation bilaterally Cardio: COMMON NORMALS: no JVD, regular rhythm, S1 normal heart sound present, S2 normal heart sound present and No murmurs present (Cardio) RHYTHM: regular rhythm HEART SOUNDS: S1 normal heart sound present and S2 normal heart sound present GI: COMMON NORMALS: Normal to inspection, nondistended, normoactive bowel sounds present, Soft to palpation and non-tender PALPATION: Yes Soft to palpation Extremity: COMMON NORMALS: no joint enlargement and no pedal edema Neuro: COMMON NORMALS: moves all extremities SENSORIUM/ORIENTATION: Yes alert Data 10/05/24 06:34 10/05/24 06:34 Micro: Microbiology 10/04/24 13:46 Urine Culture - Preliminary Urine,Clean Catch A&P Assessment and plan (1) Weakness: Unclear cause of weakness. Orthostatics checked, and negative. But was having trouble getting in and repositioning himself in bed requiring assistance. Appears like proximal muscle weakness. Requested ESR, CRP. Continue to hold statin with possible statin myopathy. Difficult to state if he is in pain, he did have recent syncopal fall. Per case caregiver he does not normally express pain. Will obtain CT thoracic and lumbar spine to assess for any possible compression fractures. Additionally noted new severe neutropenia ANC 970, unexplained. Without signs of sepsis. Afebrile. Reviewing his medications he is on Lamictal and Keppra. Discussed with his neurologist will decrease Lamictal dose to 100 mg twice daily for now, continue Keppra. He has been on these medications for a while. Follow- up Lamictal, Keppra levels. Will have him follow-up with neurology. Requested a peripheral smear. Minimal hematuria, possibly following straight cath to obtain urine sample. Although did have some hematuria during prior visit as well. Would benefit from follow-up with urology. No obvious urinary abnormality on CT during prior visit. Otherwise no rigidity or apparent tremor on exam. Does appear to be on 2 SSRI with citalopram and trazodone, although otherwise no signs of serotonin syndrome. Another possibility of posterior circulation CVA. Reviewed carotid duplex. Vertebral arteries are patent. No sign of dissection. He otherwise appears nonfocal, although his caregiver did state he was missing his mouth when trying to feed himself over the last week or so. I do not detect obvious dysmetria, although he is not really cooperative with examination. During his attempt of getting into bed appears more like muscular weakness rather than ataxia. Continue aspirin. Currently at fall risk, and lower suspicion of posterior circulation CVA, may be safer to hold off on Plavix. With some minor hyperglycemia on presentation, A1c is 5.9, no sign of diabetes. TSH, CK, viral studies are negative. Head CT unremarkable. Severe generalized weakness, previous normally ambulatory on his own, now requiring max assistance to ambulate, falling over, mostly backwards. Had an episode of syncope, possible TIA with left-sided facial droop back on 09/17 at which time had workup that included CT head, [place], chest x-ray, carotid duplex. His dose of atorvastatin was doubled after that. He did since then had a fall on 09/25 hitting the back of his head. He had 1 episode of diarrhea. No witnessed seizure episodes. Otherwise workup so far unremarkable, afebrile, without leukocytosis, mild hyperglycemia 120. Will check A1c. Reviewed vitals, CBC, CMP, magnesium, CK request, troponin, TSH, UA, coronavirus, influenza, RSV PCR, head CT, chest x-ray, EKG, however provider note, discussed with ER provider. Pending lamotrigine and levetiracetam levels. CK not elevated, but statin myopathy is possible as discussed. Will give a holiday from statin, see if his symptoms improved. Additionally will assess orthostatic blood pressures. Possible mild dehydration, noted bicarb 30, alk phos mildly higher than usual to 24, no abdominal tenderness on palpation, T. bili is normal, CT abdomen pelvis on 09/17 with status post cholecystectomy. Will give gentle IV hydration. Assess A1c for possibility of diabetes. Follow- up seizure med levels for possible toxicity, although this seems less likely as he otherwise appears alert and awake. Will continue seizure medicines for now, however, monitor for risk of worsening symptoms with possibility of seizure medicine toxicity. Discussed possibility of posterior circulation CVA, though this will be difficult to assess. He is awake and alert, moving all extremities in bed, repositioning by himself, and appears to have unilateral weakness, I do not appreciate any facial droop currently. He does not appear to have neglect. His caregiver does report that when he is trying to eat he was missing his mouth with a spoon. Possible component of dysmetria. No obvious CVA on head CT, considered MRI, but as per discussion with caregiver very unlikely to tolerate the test to provide readable images. Already on aspirin, statin. Discussed adding Plavix for 21 days. Follow-up with neurology after discharge. Straight cath for urine sample in ER. Watch out for any signs of urine retention. Chest x-ray mild left basilar airspace disease, but without obvious pneumonia, clinically not suggestive of pneumonia. Possible atelectasis. Monitor for change in symptoms. Plan Diarrhea: 1 episode of diarrhea day before admission. So far without recurrence. Will request C. difficile. Monitor for additional diarrhea episodes. Severe autism. 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 Redirectable. Previously independently ambulatory. Normally takes mechanical soft diet. Epilepsy: Per discussion with his neurologist decrease Lamictal dose to 100 mg twice daily, continue Lamictal and Keppra for now given history of true epilepsy. Reassess blood counts. Follow-up Lamictal, Keppra levels. Monitor for risk of worsening Neutropenia. Monitor for risk of seizure HTN: Monitor blood pressure. Continue multipin, enalapril. Attestations 2 Medical Necessity Statement*: Admission of over 2 midnights has been needed for additional assessment of generalized weakness, new inability to ambulate, new severe neutropenia, and an elderly gentleman with severe autism, mute, possibly deaf, additional comorbidities. and High MDM includes amount and/or complexity of data reviewed/ordered [ resulted lab(s)/test(s), ordered lab(s)/test(s), independent historian and other healthcare professional discussion] and described risk of complication, morbidity or mortality of management as documented Diagnoses Weakness R53.1
[2024-10-05] MEDS: enoxaparin 30 mg/0.3 mL Syringe SUBCUT (20:29)
[2024-10-05] MEDS: trazodone 50 mg Tablet PO (20:29)
[2024-10-06] VITALS: BP 145/75; PULSE 77; RESP 17; TEMP 36.9; O2SAT 97
[2024-10-06 04:00] VITALS: BP 122/71; PULSE 77; RESP 16; TEMP 37.1; O2SAT 94
[2024-10-06 05:25] LABS: Basophils % 0.6 %; Eosinophils # 0.1 10^3/uL (0.0-0.8); Eosinophils % 2.9 %; Hematocrit 41.3 % (37-53); Lymphocytes # 1.9 10^3/uL (0.8-4.8); Lymphocytes % 56.4 %; Mean Corpuscular HGB Conc 33.2 g/dL (30-55); Mean Corpuscular Volume 84.3 fl (82-101); Mean Platelet Volume 9.1 fL (7.4-10.4); Monocytes # 0.4 10^3/uL (0.2-0.9); Monocytes % 11.9 %; Neutrophils % 28.2 %; Nucleated Red Blood Cells % 0 %; Platelet Count 280 10^3/cmm (157-399); White Blood Count 3.44 10^3/uL (3.29-11.43)
[2024-10-06 05:46] LABS: Anion Gap 16.1 (5-19); Blood Urea Nitrogen 15 mg/dL (8-23); Calcium 9.5 mg/dL (8.5-10.5); Carbon Dioxide 26 mmol/L (22-29); Chloride 99 mmol/L (98-107); Creatinine Clr Calc Pharmacy 45.5327; Glucose 82 mg/dL (65-115); Osmolality Calculated 284 mOsm/kg (285-295); Potassium 4.1 mmol/L (3.5-5.1); Sodium 137 mmol/L (136-145)
[2024-10-06 05:51] LABS: Neutrophils # 0.97 10^3/uL (1.8-7.7)
[2024-10-06 08:00] VITALS: BP 150/67; PULSE 65; RESP 16; TEMP 36.7; O2SAT 93
[2024-10-06] MEDS: levETIRAcetam 500 mg Tablet 750 MG PO (08:43)
[2024-10-06] MEDS: lamoTRIgine 100 mg Tablet PO (08:43)
[2024-10-06] MEDS: famotidine 20 mg Tablet 40 MG PO (08:44)
[2024-10-06] MEDS: lisinopril 10 mg Tablet PO (08:44)
[2024-10-06] MEDS: aspirin 81 mg EC Tablet PO (08:44)
[2024-10-06] MEDS: calcitonin nasal 200 unit/spray 3.7 mL Btl 1 SPRAY NASAL (08:44)
[2024-10-06] MEDS: amlodipine 10 mg Tablet PO (08:44)
[2024-10-06] MEDS: sertraline 50 mg Tablet PO (08:44)
--- NOTE | 2024-10-06 09:53 | PC.CHAP ---
Pastoral Care Encounter/Spiritual Assessment Type of Contact [] Declined fruit canner visit [] Patient/Family/Request visit [] Outpatient visit [] Follow-up visit [] Physician referral [] Code/Alert [x] Routine visit [] Staff referral [] Actively dying [] Patient sleeping [] Family support [] [] Out of room [] Palliative care [] [] Receiving care in room [] Pre-surgical visit [] Trauma [] Long length of stay [] ICU visit [] Other: Relational/Emotional Strength [] Patient feels connected with others/family/visitors/staff [] Distress [] Loneliness/isolation [] Abandonment Spirituality of Patient [] Person of Diana [] Attends Hinduism of their Diana [] Believes in Prayer [] Reads Bible or Druze materials [] There are Spiritual issues to be addressed Personal Support Worker Interventions [x] Prayer [] Active listening [] Non-anxious presence [] Spiritual/emotional support [] Crisis/trauma care [] Spiritual counseling [] Bereavement support [] Provided bereavement packet [] Provided Bible/devotional materials [] Provided toy/stuffed animal, coloring book to patient or family member [] Provided Communion [] Anointing/[place] [] Salvation [] Completed spiritual assessment [] Other: Impact on Illness or Injury [] Angry [] Fearful [] Anxious [] Often cries [] Exhaustion [] Unable to work [] Unable to attend caodaism [] Unable to walk/stand [] Unable to read [] Unable to drive [] Unable to eat/drink [] Unable to sleep [] Unable to be with family [] Patient intubated [] Other: Summary isolation Time spent with patient
--- NOTE | 2024-10-06 11:46 | PM.DCS ---
Discharge Providers Date of Admission: 10/04/24 16:58 Date of Discharge: October 06, 2024 Attending Provider at Admission: Gerson Jeronimo Attending Provider at Discharge: Dajuan Thurston MD Primary Care Provider: Ant Cantor DO Diagnoses at Discharge Discharge Diagnosis (1) Weakness: Status: Acute Reason for Visit Reason for Visit: unable to walk/ non verbal Hospital Course Hospital Course This is a 74-year-old male with autism, living in a penitentiary, who is deaf, nonverbal, recent history of TIA, history of seizures, who presents [facility] for concerns for generalized weakness Weakness, multifactorial from pneumonia, statin induced myopathy? 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 L3-L4 broad-based disc bulge with mild bilateral foraminal narrowing. 2. L4-L5 broad-based disc bulge with moderate spinal canal and moderate to severe bilateral foraminal narrowing. 3. L5-S1 broad-based disc bulge with moderate to severe bilateral foraminal narrowing. -It is difficult discern if he has any back pain -He does move bilateral lower extremities, difficult to do neurologic testing -Given CT scan findings if he continues to have lower extremity weakness can consider orthopedic evaluation, referred to Dr. Gutiérrez as outpatient Physical Exam Const: COMMON NORMALS: no acute distress Resp: COMMON NORMALS: normal respiratory effort, No retractions, No use of accessory muscles and clear to auscultation bilaterally AUSCULTATION: clear to auscultation bilaterally Cardio: COMMON NORMALS: regular rate, regular rhythm, S1 normal heart sound present and S2 normal heart sound present RATE: regular rate RHYTHM: regular rhythm HEART SOUNDS: S1 normal heart sound present and S2 normal heart sound present GI: COMMON NORMALS: Normal to inspection, nondistended, normoactive bowel sounds present and non-tender Extremity: COMMON NORMALS: no pedal edema Discharge Data Studies Completed and Pending Completed Studies During Hospitalization Category Date Time Status CT head wo con* [id number] Stat Cat Scan 10/04/24 11:[address] lumbar spine wo con* [id number] Routine Cat Scan 10/05/24 17:[address] thoracic spin wo con* [id number] Routine Cat Scan 10/05/24 17:53 Completed XR chest 1V [id number] Stat Exams 10/04/24 11:41 Completed CV carotid duplex BI* [id number] Routine Ultrasound 10/05/24 18:31 Completed Pending at discharge Category Date Time Status Basic Metabolic Panel AM LABS Lab 10/07/24 04:00 Ordered C.Diff PCR (Lab) Routine Lab 10/04/24 20:37 Uncollected Complete Blood Count w/Auto AM LABS Lab 10/07/24 04:00 Ordered KEPPRA [Levetiracetam Immunoassy] Routine Lab 10/04/24 15:49 Received Lamotrigine (Lamictal) Level Timed Lab 10/04/24 15:49 Received Radiology Impressions Head CT 10/04/24 11:40 IMPRESSION: No acute post-traumatic brain injury. Chest X-Ray 10/04/24 11:41 IMPRESSION: Mild left basilar airspace disease. Lumbar Spine CT 10/05/24 17:53 IMPRESSION: 1. L3-L4 broad-based disc bulge with mild bilateral foraminal narrowing. 2. L4-L5 broad-based disc bulge with moderate spinal canal and moderate to severe bilateral foraminal narrowing. 3. L5-S1 broad-based disc bulge with moderate to severe bilateral foraminal narrowing. 4. Cholecystectomy. 5. Aortic atherosclerotic calcifications. 6. Right iliac wing cortical thickening and prominent trabeculae somewhat visualized, concerning for Paget's disease, similar to prior exam. Thoracic Spine CT 10/05/24 17:53 IMPRESSION: 1. Negative for gross evidence of disc herniation or spinal canal narrowing, consider further evaluation with an MRI. 2. Multilevel lvju-zp-vaymkasp disc space narrowing and productive degenerative endplate changes throughout the spine. 3. Cardiomegaly. 4. Coronary artery atherosclerotic calcifications. 5. Emphysematous changes suspected. 6. Bilateral dependent atelectasis versus infiltrate. 7. Cholecystectomy. Carotid Doppler Study 10/05/24 18:31 IMPRESSION: No carotid arterial stenosis. REFERENCES: SRU CRITERIA. The degree of internal carotid artery stenosis is based on criteria defined by the Society of Radiologists in Ultrasound (SRU). Normal is no stenosis. Mild is less than 50% stenosis. Moderate is 50-69% stenosis. Severe is greater than 69% stenosis to near occlusion. Near occlusion is a markedly narrowed lumen. Total occlusion is no detectable patent lumen. Laboratory Results WBC 3.44 10^3/uL (3.29-11.43) 10/06/24 04:52 RBC 4.90 10^6/uL (3.85-5.65) 10/06/24 04:52 Hgb 13.70 g/dL (11.27-16.99) 10/06/24 04:52 Hct 41.3 % (37-53) 10/06/24 04:52 MCV 84.3 fl (82-101) 10/06/24 04:52 MCH 28.0 pg (27-33) 10/06/24 04:52 MCHC 33.2 g/dL (30-55) 10/06/24 04:52 RDW 13.0 % (12.1-15.1) 10/06/24 04:52 Plt Count 280 10^3/cmm (157-399) 10/06/24 04:52 MPV 9.1 fL (7.4-10.4) 10/06/24 04:52 Neut % (Auto) 28.2 % 10/06/24 04:52 Lymph % (Auto) 56.4 % 10/06/24 04:52 [place] % (Auto) 11.9 % 10/06/24 04:52 Eos % (Auto) 2.9 % 10/06/24 04:52 Baso % (Auto) 0.6 % 10/06/24 04:52 Neut # (Auto) 0.97 10^3/uL (1.8-7.7) L* 10/06/24 04:52 Lymph # (Auto) 1.9 10^3/uL (0.8-4.8) 10/06/24 04:52 [place] # (Auto) 0.4 10^3/uL (0.2-0.9) 10/06/24 04:52 Eos # (Auto) 0.1 10^3/uL (0.0-0.8) 10/06/24 04:52 Baso # (Auto) 0.0 10^3/uL (0.0-0.1) 10/06/24 04:52 Nucleated RBC % (auto) 0 % 10/06/24 04:52 Nucleated RBCs # 0.0 /100WBC 10/06/24 04:52 Peripher Smr Path Cons Sent for review 10/05/24 06:34 ESR 27 mm/hr (0-10) H 10/05/24 06:34 Sodium 137 mmol/L (136-145) 10/06/24 04:52 Potassium 4.1 mmol/L (3.5-5.1) 10/06/24 04:52 Chloride 99 mmol/L (98-107) 10/06/24 04:52 Carbon Dioxide 26 mmol/L (22-29) 10/06/24 04:52 Anion Gap 16.1 (5-19) 10/06/24 04:52 BUN 15 mg/dL (8-23) 10/06/24 04:52 Creatinine 1.1 mg/dL (0.7-1.2) 10/06/24 04:52 GFR Calculation Not Reportable 10/06/24 04:52 Glucose 82 mg/dL (65-115) 10/06/24 04:52 POC Glucose 115 mg/dL (70-110) H 10/04/24 11:09 Estimat Average Glucose 123 10/04/24 11:25 Hemoglobin A1c 5.9 % (4.0-6.0) 10/04/24 11:25 Calculated Osmolality 284 mOsm/kg (285-295) L 10/06/24 04:52 Calcium 9.5 mg/dL (8.5-10.5) 10/06/24 04:52 Magnesium 2.1 mg/dL (1.7-2.3) 10/04/24 11:25 Total Bilirubin 0.2 mg/dL (0.15-1.2) 10/04/24 11:25 AST 19 U/L (0-40) 10/04/24 11:25 ALT 21 U/L (0-41) 10/04/24 11:25 Alkaline Phosphatase 224 U/L (40-130) H 10/04/24 11:25 Creatine Kinase 118 U/L (39-308) 10/04/24 13:53 Troponin T Baseline < 6 ng/L (0-15) 10/04/24 11:25 Troponin T 120 Minute 6.00 ng/L (0-15) 10/04/24 13:25 Delta Troponin T 0.36777 ABS# (0-10) 10/04/24 13:25 C-Reactive Protein 3.0 mg/L (0.0-4.9) 10/05/24 06:34 Total Protein 6.7 g/dL (6.6-8.7) 10/04/24 11:25 Albumin 4.4 g/dL (3.5-5.2) 10/04/24 11:25 Globulin 2.3 g/dL (1.3-4.6) 10/04/24 11:25 TSH 0.82 uIU/mL (0.27-4.20) 10/04/24 13:53 Urine Color Yellow (Yellow) 10/04/24 13:46 Urine Appearance Clear (CLEAR) 10/04/24 13:46 Urine pH 6.0 (5-7) 10/04/24 13:46 Ur Specific [place] 1.019 (1.005-1.030) 10/04/24 13:46 Urine Protein Negative (Negative) 10/04/24 13:46 Urine Glucose (UA) Negative (Normal) 10/04/24 13:46 Urine Ketones Negative (Negative) 10/04/24 13:46 Urine Blood 1+ (Negative) A 10/04/24 13:46 Urine Nitrate Negative (Negative) 10/04/24 13:46 Urine Bilirubin Negative (Negative) 10/04/24 13:46 Urine Urobilinogen 1.0 mg/dL (Negative) 10/04/24 13:46 Ur Leukocyte Esterase Negative (Negative) 10/04/24 13:46 Urine RBC 10-15 /hpf (0-2) H 10/04/24 13:46 Urine WBC Rare /hpf (0-5) 10/04/24 13:46 Ur Squamous Epith Cells None /hpf (0-5) 10/04/24 13:46 Amorphous Sediment Not Reportable 10/04/24 13:46 Urine Bacteria 2+ /hpf (NONE) H 10/04/24 13:46 Urine Mucus 1+ /hpf 10/04/24 13:46 Coronavirus (PCR) Negative (Negative) 10/04/24 12:37 Influenza A (PCR) Negative (Negative) 10/04/24 12:37 Influenza Type B (PCR) Negative (Negative) 10/04/24 12:37 RSV (PCR) Negative (Negative) 10/04/24 12:37 Vitals Last Vital Signs Temp 98.1 F 10/06/24 08:00 Pulse 65 10/06/24 08:00 Resp 16 10/06/24 08:00 BP 150/67 10/06/24 08:00 Pulse Ox 93 10/06/24 08:00 O2 Del Method Room Air 10/06/24 08:00 Discharge Plan Discharge Patient Disposition: Home Condition: Stable Prescriptions: New amoxicillin-pot clavulanate 875-125 mg tablet 1 tab PO BID 5 Days Qty: 10 0RF Continued Neosporin (gcy-rpm-pksov) 3.5-400-5,000 vm-pzdt-bcfz ointment in packet 1 applic TOPICAL DAILY PRN (Reason: skin irritations/cuts/abrasions) calcitonin (salmon) 200 unit/actuation spray,non-aerosol 1 spray intranasal (ALT) DAILY Qty: 3.7 6RF Rx Instructions: one spray twice daily alt nostrils. bismuth subsalicylate 262 mg/15 mL suspension See Rx Instructions .ROUTE .COMPLEX Qty: 236 4RF Dose Instruction: GIVE DIRECTED ON BOTTLE FOR DIARRHEA & STOMACH RELIEF NEEDED *STOCK* Rx Instructions: GIVE DIRECTED ON BOTTLE FOR DIARRHEA & STOMACH RELIEF NEEDED *STOCK* Coricidin HBP Cold and Flu 2-325 mg tablet See Rx Instructions .ROUTE .COMPLEX Qty: 20 0RF Dose Instruction: TAKE TWO TABLETS BY MOUTH EVERY 6 HOURS NEEDED * NOT TO EXCEED 10 TABLETS in 24 hours* Rx Instructions: TAKE TWO TABLETS BY MOUTH EVERY 6 HOURS NEEDED * NOT TO EXCEED 10 TABLETS in 24 hours* cetirizine 10 mg tablet 10 mg PO BEDTIME PRN (Reason: seasonal alleriges) Qty: 90 0RF lorazepam [Ativan] 1 mg tablet 1 mg sublingual Q6H PRN (Reason: seizures) Qty: 10 1RF magnesium oxide 400 mg (241.3 mg magnesium) tablet 400 mg PO DAILY 90 Days Qty: 1 0RF trazodone 50 mg tablet 50 mg PO BEDTIME Qty: 30 2RF enalapril maleate 10 mg tablet 10 mg PO DAILY Qty: 30 11RF levetiracetam 750 mg tablet See Rx Instructions .ROUTE .COMPLEX Qty: 60 5RF Dose Instruction: TAKE ONE TABLET BY MOUTH TWICE DAILY FOR SEIZURES Rx Instructions: TAKE ONE TABLET BY MOUTH TWICE DAILY FOR SEIZURES magnesium hydroxide [Milk of Magnesia] 400 mg/5 mL Suspension See Rx Instructions .ROUTE .COMPLEX PRN (Reason: Constipation) Rx Instructions: Take 30 mL orally as needed on 4th day if no bowel movement in 3 days. Call nurse on 5th day. acetaminophen 325 mg tablet 650 mg PO Q4H PRN (Reason: pain or elevated temp > 100) famotidine 40 mg tablet 40 mg PO DAILY alum-mag hydroxide-simeth [Devi-Lanta] 200-200-20 mg/5 mL suspension 30 ml PO PRN PRN (Reason: indigestion/gas relief) PNV cmb#95-ferrous fumarate-FA 28 mg iron- 800 mcg tablet 1 tab PO DAILY tamsulosin 0.4 mg capsule 0.4 mg PO QPM amlodipine 10 mg tablet 10 mg PO DAILY sertraline 50 mg tablet 50 mg PO DAILY finasteride 5 mg tablet 5 mg PO QPM aspirin 81 mg Tablet,Delayed Release (Dr/Ec) 81 mg PO DAILY Qty: 30 0RF Changed lamotrigine 200 mg tablet 100 mg PO BID Qty: 30 0RF Held atorvastatin 40 mg Tablet 40 mg PO BEDTIME Qty: 30 0RF Hold Instructions: Resume on 10/13/24. Discharge Orders: Discharge Order (Routine); Ordered 10/06/24 Ordered By: Dajuan Thurston Referrals: Ant Cantor DO [Primary Care Provider] - Poli Gutiérrez DO [Physician] - 1 month (weakness) Bebo Juarez MD [Physician] - 1 week Discharge Diet: Cardiac Discharge Activity: Resume usual activity Patient Instructions: Amoxicillin/Clavulanate Potassium (By mouth), Weakness (GEN), Opioid Safety Activity Restrictions/Additional Instructions: - Please recheck CBC in 48 hours, neutrophil count 0.97 -If patient develops any fevers, cough, or concerns for infection please bring back to the hospital ? In a week resume atorvastatin at 20 mg daily ? Follow-up with neurology Discharge Attestations Time Spent in Discharge Care*: greater than 30 min Quality Metrics Clinical Quality Measures [ No reported AMI, CVA or VTE this stay] Coding Level of Care Code 75610 Total time (in minutes) for Discharge: 45 Diagnoses Weakness R53.1
[2024-10-06 11:53] VITALS: BP 145/70; PULSE 71; RESP 16; TEMP 36.9; O2SAT 97
--- NOTE | 2024-10-06 14:13 | PC.PT ---
Patient discharged to snf when PT attempted evaluation.
--- NOTE | 2024-10-06 15:21 | PC.NURSE ---
Called report to Betzy Contreras RN at [facility].
[2024-10-06 15:22] VITALS: BP 145/70; PULSE 71; RESP 16; TEMP 36.9; O2SAT 97
[2024-10-07 06:28] LABS: Levetiracetam Immunoassy 20.6 mcg/mL (6.0-46.0)
[2024-10-09 13:25] LABS: Lamotrigine (Lamictal) Level 20.8 mcg/mL (2.5-15.0)
== END 2024-10-06 13:45 | disposition home or self-care (01) ==
LOC: ER 17:00 → MEDSURG 19:04
PROVIDERS: Admitting Provider Internal Medicine; Emergency Provider Physician Assistant; PCP Family Medicine; Visit Provider Family Medicine
DX: R53.1 Weakness (principal); F84.0 Autistic disorder; H91.3 Deaf nonspeaking, not elsewhere classified; Z86.73 Personal history of transient ischemic attack (TIA), and cerebral infarction without residual deficits; J18.9 Pneumonia, unspecified organism; G40.909 Epilepsy, unspecified, not intractable, without status epilepticus; I10 Essential (primary) hypertension
CPT/HCPCS: 36415; 36416; 70450; 71045; 72128; 72131; 80048; 80053; 80175; 80177; 80503; 81001; 82550; 82962; 83036; 83735; 84443; 84484; 85025; 85651; 86140; 87086; 87637; 93005; 93880; 96372; 99285; G0378; J1650

== ENCOUNTER 2024-10-08 09:30 | Outpatient (CLI) | payer MEDICARE, MEDICAID, SELFPAY ==
[2024-10-08 09:48] LABS: Basophils % 0.5 %; Eosinophils # 0.1 10^3/uL (0.0-0.8); Eosinophils % 2.7 %; Hematocrit 42.5 % (37-53); Lymphocytes # 1.8 10^3/uL (0.8-4.8); Lymphocytes % 48.1 %; Mean Corpuscular HGB Conc 32.7 g/dL (30-55); Mean Corpuscular Hemoglobin 27.9 pg (27-33); Mean Corpuscular Volume 85.3 fl (82-101); Mean Platelet Volume 8.8 fL (7.4-10.4); Monocytes # 0.4 10^3/uL (0.2-0.9); Monocytes % 11.1 %; Neutrophils # 1.38 10^3/uL (1.8-7.7); Neutrophils % 37.3 %; Nucleated Red Blood Cells % 0 %; Platelet Count 272 10^3/cmm (157-399); Red Blood Count 4.98 10^6/uL (3.85-5.65); Red Cell Distribution Width 12.9 % (12.1-15.1)
== END 2024-10-08 09:31 | disposition home or self-care (01) ==
PROVIDERS: PCP Family Medicine; Visit Provider Family Medicine
DX: Z01.89 Encounter for other specified special examinations (principal)
CPT/HCPCS: 36415; 85025

== ENCOUNTER → 2024-11-06 10:45 | Outpatient (BNVA) | payer MEDICARE, MEDICAID, SELFPAY | PROVIDERS: PCP Family Medicine; Referring Provider Family Medicine; Visit Provider Orthopaedic Surgery | DX: M54.6 Pain in thoracic spine (principal); M54.50 Low back pain, unspecified; M54.9 Dorsalgia, unspecified; M88.9 Osteitis deformans of unspecified bone | CPT/HCPCS: 72072; 72100; 99203 ==

== ENCOUNTER → 2025-01-21 13:33 | Outpatient (BNVA) | payer MEDICARE, MEDICAID, SELFPAY | PROVIDERS: PCP Family Medicine; Referring Provider Family Medicine; Visit Provider Psychiatry & Neurology Neurology | DX: G40.319 Generalized idiopathic epilepsy and epileptic syndromes, intractable, without status epilepticus (principal); F81.9 Developmental disorder of scholastic skills, unspecified; R53.1 Weakness | CPT/HCPCS: 99202 ==

== ENCOUNTER → 2025-03-18 08:45 | Outpatient (BNVA) | payer MEDICARE, MEDICAID, SELFPAY | PROVIDERS: PCP Family Medicine; Visit Provider Podiatrist Foot & Ankle Surgery | DX: I73.9 Peripheral vascular disease, unspecified (principal); B35.1 Tinea unguium; G62.9 Polyneuropathy, unspecified | CPT/HCPCS: 11721 ==

== ENCOUNTER → 2025-06-19 08:04 | Outpatient (BNVA) | payer MEDICARE, MEDICAID, SELFPAY | PROVIDERS: PCP Family Medicine; Visit Provider Nurse Practitioner | DX: G40.319 Generalized idiopathic epilepsy and epileptic syndromes, intractable, without status epilepticus (principal) | CPT/HCPCS: 99212 ==

== ENCOUNTER 2025-08-14 20:30 | Emergency (ER) | payer MEDICARE, MEDICAID, SELFPAY ==
[2025-08-14 20:32] VITALS: BMI 29.4
[2025-08-14 20:38] VITALS: BP 173/84; PULSE 69; RESP 18; TEMP 36.6; O2SAT 93
[2025-08-14] MEDS: lidocaine-epi 1% 20 mL INJ INJECTION (21:26)
--- NOTE | 2025-08-14 22:09 | ED_ITS ---
HPI - Wound/Laceration General: Chief Complaint: Wound/Laceration Stated Complaint: fall Time Seen by Provider: 08/14/25 20:32 History of Present Illness: 75-year-old male in a detention environ ment. He is mostly blind, as well as deaf and mute. He presents with a forehead laceration after a fall in the shower. He is not on any blood thinners. There is no loss of consciousness. He does not appear to be in pain. No vomiting. No change in mentation per his office staff. The forehead continues to bleed. Related Data Home Medications ?Medication ?Instructions ?Recorded ?Confirmed neomycin-bacitracn Zn-polymyxn 3.5 1 applic topical DA EDUARDO PRN skin 10/20/19 06/29/25 mg-400 unit-5,000 unit top oint irritations/cuts/abras ions pkt (Neosporin(aff-fio-aqqiw)) acetaminophen 325 mg tablet 650 mg PO Q4H PRN pain or elevated 06/18/24 06/29/25 temp > 100 aluminum-mag hydroxide-simethicone 30 ml PO PRN PRN in digestion/gas 06/18/24 06/29/25 200 mg-200 mg-20 mg/5 mL oral susp relief (Devi-Lanta) dapagliflozin propanediol 10 mg 10 mg PO DAILY 5 06/29/25 tablet (Farxiga) Previous Rx's ?Medication ?Instructions ?Recorded bismuth subsalicylate 262 mg/15 mL See Rx Instructions .Route 04/30/24 oral suspension .COMPLEX #236 mL chlorpheniramine-acetaminophen 2 See Rx Instructions . Route 06/24/24 mg-325 mg tablet (Coricidin HBP .COMPLEX #20 tabs Cold and Flu) magnesium hydroxide 400 mg/5 mL See Rx Instructions .R oute 10/06/24 oral suspension (Milk of Magnesia) .COMPLEX #3,000 mL lamotrigine 100 mg tablet See Rx Instructions .Route 0 11/03/24 .COMPLEX #60 tabs sertraline 50 mg tablet See Rx Instructions .Route 0 11/04/24 .COMPLEX #30 tabs calcitonin (salmon) 200 See Rx Instructions .Route 0 12/30/24 unit/actuation nasal spray .COMPLEX #3.7 mL diazepam 10 mg/spray (0.1 mL) 10 mg (0.1 mL) intranasa l .COMPLEX 01/21/25 nasal spray (Valtoco) #1 spray tamsulosin 0.4 mg capsule See Rx Instructions .Route 0 03/16/25 .COMPLEX #30 caps famotidine 40 mg tablet See Rx Instructions .Route 0 03/24/25 .COMPLEX #60 tabs levetiracetam 750 mg tablet See Rx Instructions .Route 03/31/25 .COMPLEX #60 tabs amlodipine 10 mg tablet See Rx Instructions .Route 0 05/05/25 .COMPLEX #90 tabs pravastatin 20 mg tablet See Rx Instructions .Route 0 05/08/25 .COMPLEX #30 tabs aspirin 81 mg tablet,delayed See Rx Instructions .Rout e 06/09/25 release .COMPLEX #90 tabs cetirizine 10 mg tablet See Rx Instructions .Route 0 06/17/25 .COMPLEX #30 tabs finasteride 5 mg tablet See Rx Instructions .Route 0 06/17/25 .COMPLEX #30 tabs trazodone 50 mg tablet See Rx Instructions .Route 0 06/17/25 .COMPLEX #30 tabs magnesium oxide 400 mg (241.3 mg See Rx Instructions . Route 07/30/25 magnesium) tablet .COMPLEX #90 tabs vit no.95-ferrous See Rx Instructions .Route 08/04/25 fumarate 28 mg-folic acid 800 mcg .COMPLEX #90 tabs tablet enalapril maleate 10 mg tablet See Rx Instructions .[facility] 08/11/25 .COMPLEX #30 tabs Allergies Allergy/AdvReac Type Severity Reaction Status Date / Time No Known Allergies Allergy Verified 06/19/25 08:00 [facility] ED PFSH: Medical History Syncope Epilepsy Bilateral deafness HTN (hypertension) Autistic disorder Social History Smoking and tobacco/nicotine status: never used tobacco/nicotine Alcohol intake: never Physical Exam Const: COMMON NORMALS: no acute distress GENERAL APPEARANCE: cooperative and comfortable; not ill appearing and not frail appearing ORIENTATION/CONSCIOUSNESS: Yes awake HENMT: COMMON NORMALS: normocephalic HEAD & SCALP: normocephalic FACE & SINUS: ecchymosis and laceration (3cm forehead) Eye: COMMON NORMALS: EOMs intact bilaterally Neck/C-Spine: COMMON NORMALS: full ROM GENERAL: Yes trachea midline CERVICAL SPINE: No Cervical spine tenderness and No Paracervical spasm Chest: CHEST: Yes Symmetrical chest wall rise Resp: COMMON NORMALS: normal respiratory effort Cardio: COMMON NORMALS: regular rate and regular rhythm RATE: regular rate RHYTHM: regular rhythm Procedures Laceration Laceration 1: Site: face Size (cm): 3 Description: linear Depth: simple, single layer Local Anesthetic: lidocaine 1% and with epi Amount of anesthesia used (mL): 4 Pre-repair: wound explored, irrigated extensively and deep structures intact Skin layer closed with: other (Prolene) Size (cm): 5-0 Number of sutures: 4 Technique: simple, interrupted Course Vital Signs: Vital signs: Vital Signs Temperature 98 F 08/14/25 20:38 Pulse Rate 65 08/14/25 22:25 Respiratory Rate 16 08/14/25 22:25 Blood Pressure 157/86 08/14/25 22:25 Pulse Oximetry 92 08/14/25 22:25 MDM - Wound/Laceration Medical Decision Making Patient shows no signs of closed head injury. No vomiting. He is not on any anticoagulants. Forehead continues to bleed however. It is sutured with control of bleeding. He tolerated well. Sutures out in 5 to 7 days. Warning signs for return given. He is stable for discharge No radiology studies performed this visit Discharge Plan Discharge Patient Disposition: Home Clinical Impression: Forehead laceration Condition: Stable Prescriptions: No Action Neosporin (due-jiw-ezzcr) 3.5-400-5,000 gh-dxfk-wshp ointment in packet 1 applic TOPICAL DAILY PRN (Reason: skin irritations/cuts/abrasions) Valtoco 10 mg/spray (0.1 mL) spray,non-aerosol 10 mg intranasal .COMPLEX Qty: 1 0RF Rx Instructions: 10 mg intranasally 1 spray in 1 nostril for seizures lasting greater than 2 minutes or more than 2 seizures with in an hour; dapagliflozin propanediol [Farxiga] 10 mg tablet 10 mg PO DAILY bismuth subsalicylate 262 mg/15 mL suspension See Rx Instructions .ROUTE .COMPLEX Qty: 236 4RF Dose Instruction: GIVE DIRECTED ON BOTTLE FOR DIARRHEA & STOMACH RELIEF NEEDED *STOCK* Rx Instructions: GIVE DIRECTED ON BOTTLE FOR DIARRHEA & STOMACH RELIEF NEEDED *STOCK* Coricidin HBP Cold and Flu 2-325 mg tablet See Rx Instructions .ROUTE .COMPLEX Qty: 20 0RF Dose Instruction: TAKE TWO TABLETS BY MOUTH EVERY 6 HOURS NEEDED * NOT TO EXCEED 10 TABLETS in 24 hours* Rx Instructions: TAKE TWO TABLETS BY MOUTH EVERY 6 HOURS NEEDED * NOT TO EXCEED 10 TABLETS in 24 hours* magnesium hydroxide [Milk of Magnesia] 400 mg/5 mL suspension See Rx Instructions .ROUTE .COMPLEX Qty: 3000 3RF Dose Instruction: TAKE 30ML BY MOUTH NEEDED ON FOURTH DAY IF NO BOWEL MOVEMENT IN 3 DAYS; CALL NURSE ON DAY; NOT TO EXCEED 1 DOSE DAILY FOR CONSTIPATION Rx Instructions: TAKE 30ML BY MOUTH NEEDED ON FOURTH DAY IF NO BOWEL MOVEMENT IN 3 DAYS; CALL NURSE ON DAY; NOT TO EXCEED 1 DOSE DAILY FOR CONSTIPATION lamotrigine 100 mg tablet See Rx Instructions .ROUTE .COMPLEX Qty: 60 11RF Dose Instruction: TAKE ONE TABLET BY MOUTH TWICE DAILY Rx Instructions: TAKE ONE TABLET BY MOUTH TWICE DAILY sertraline 50 mg tablet See Rx Instructions .ROUTE .COMPLEX Qty: 30 11RF Dose Instruction: TAKE ONE TABLET BY MOUTH EVERY DAY FOR PTSD Rx Instructions: TAKE ONE TABLET BY MOUTH EVERY DAY FOR PTSD calcitonin (salmon) 200 unit/actuation spray,non-aerosol See Rx Instructions .ROUTE .COMPLEX Qty: 3.7 6RF Dose Instruction: USE 1 SPRAY intranasally into one nostril TWICE DAILY *alternate nostrils daily* FOR CALCIUM SUPPLEMENT Rx Instructions: USE 1 SPRAY intranasally into one nostril TWICE DAILY *alternate nostrils daily* FOR CALCIUM SUPPLEMENT tamsulosin 0.4 mg capsule See Rx Instructions .ROUTE .COMPLEX Qty: 30 5RF Dose Instruction: TAKE ONE CAPSULE BY MOUTH EVERY NIGHT AT BEDTIME FOR BPH Rx Instructions: TAKE ONE CAPSULE BY MOUTH EVERY NIGHT AT BEDTIME FOR BPH famotidine 40 mg tablet See Rx Instructions .ROUTE .COMPLEX Qty: 60 5RF Dose Instruction: TAKE ONE TABLET BY MOUTH TWICE DAILY FOR REFLUX Rx Instructions: TAKE ONE TABLET BY MOUTH TWICE DAILY FOR REFLUX levetiracetam 750 mg tablet See Rx Instructions .ROUTE .COMPLEX Qty: 60 5RF Dose Instruction: TAKE ONE TABLET BY MOUTH TWICE DAILY FOR SEIZURES Rx Instructions: TAKE ONE TABLET BY MOUTH TWICE DAILY FOR SEIZURES amlodipine 10 mg tablet See Rx Instructions .ROUTE .COMPLEX Qty: 90 1RF Dose Instruction: TAKE ONE TABLET BY MOUTH EVERY DAY FOR hypertension; TAKE BP PRIOR TO ADMIN; HOLD & CALL RN/FILING MACHINE OPERATOR/PM IF <110/70 OR HOUR <60BPM Rx Instructions: TAKE ONE TABLET BY MOUTH EVERY DAY FOR hypertension; TAKE BP PRIOR TO ADMIN; HOLD & CALL RN/FILING MACHINE OPERATOR/PM IF <110/70 OR HOUR <60BPM pravastatin 20 mg tablet See Rx Instructions .ROUTE .COMPLEX Qty: 30 5RF Dose Instruction: TAKE 1 TABLET BY MOUTH EVERY NIGHT AT BEDTIME TO LOWER CHLOESTEROL Rx Instructions: TAKE 1 TABLET BY MOUTH EVERY NIGHT AT BEDTIME TO LOWER CHLOESTEROL aspirin 81 mg tablet,delayed release (DR/EC) See Rx Instructions .ROUTE .COMPLEX Qty: 90 2RF Dose Instruction: TAKE ONE TABLET BY MOUTH EVERY DAY FOR ANTICOAGULATION Rx Instructions: TAKE ONE TABLET BY MOUTH EVERY DAY FOR ANTICOAGULATION trazodone 50 mg tablet See Rx Instructions .ROUTE .COMPLEX Qty: 30 2RF Dose Instruction: TAKE 1 TABLET BY MOUTH EVERY NIGHT AT BEDTIME FOR insomnia Rx Instructions: TAKE 1 TABLET BY MOUTH EVERY NIGHT AT BEDTIME FOR insomnia cetirizine 10 mg tablet See Rx Instructions .ROUTE .COMPLEX Qty: 30 3RF Dose Instruction: TAKE 1 TABLET BY MOUTH EVERY NIGHT AT BEDTIME FOR seasonal allergies Rx Instructions: TAKE 1 TABLET BY MOUTH EVERY NIGHT AT BEDTIME FOR seasonal allergies finasteride 5 mg tablet See Rx Instructions .ROUTE .COMPLEX Qty: 30 2RF Dose Instruction: TAKE 1 TABLET BY MOUTH EVERY NIGHT AT BEDTIME FOR bph; wear gloves TO touch/handle Rx Instructions: TAKE 1 TABLET BY MOUTH EVERY NIGHT AT BEDTIME FOR bph; wear gloves TO touch/handle magnesium oxide 400 mg (241.3 mg magnesium) tablet See Rx Instructions .ROUTE .COMPLEX Qty: 90 0RF Dose Instruction: TAKE 1 TABLET BY MOUTH EVERY DAY FOR dietary supplement Rx Instructions: TAKE 1 TABLET BY MOUTH EVERY DAY FOR dietary supplement PNV no.95-ferrous fumarate-FA 28 mg iron- 800 mcg tablet See Rx Instructions .ROUTE .COMPLEX Qty: 90 0RF Dose Instruction: TAKE 1 TABLET BY MOUTH EVERY DAY FOR vitamin supplement Rx Instructions: TAKE 1 TABLET BY MOUTH EVERY DAY FOR vitamin supplement enalapril maleate 10 mg tablet See Rx Instructions .ROUTE .COMPLEX Qty: 30 11RF Dose Instruction: TAKE 1 TABLET BY MOUTH EVERY MORNING; TAKE BP & HEART RATE BEFORE ADMINISTERING; HOLD IF P<60 OR BP<110/70 & CALL NURSE; FOR HTN Rx Instructions: TAKE 1 TABLET BY MOUTH EVERY MORNING; TAKE BP & HEART RATE BEFORE ADMINISTERING; HOLD IF P<60 OR BP<110/70 & CALL NURSE; FOR HTN acetaminophen 325 mg tablet 650 mg PO Q4H PRN (Reason: pain or elevated temp > 100) alum-mag hydroxide-simeth [Devi-Lanta] 200-200-20 mg/5 mL suspension 30 ml PO PRN PRN (Reason: indigestion/gas relief) Discharge Orders: Discharge ED (Routine); Ordered 08/14/25 Ordered By: Tim Kathleen Referrals: Ant Cantor DO [Primary Care Provider, Family Practice] - 4-7 days Patient Instructions: Scalp Contusion in Adults (ED), Head Laceration (ED), Opioid Safety, Pain Management, Patient Portal & [place] Instructions Activity Restrictions/Additional Instructions: Sutures can come out in 5 to 7 days. They will have to be removed. Return immediately to the emergency department for vomiting, changes in mental status, increasing pain, bleeding, significant swelling, any other concerning symptoms. You may wash the area with soap and running water. Do not soak. Print Language: Lithuanian Coding Level of Care Code ED Sleep Medicine Physician for Claude Oropeza
[2025-08-14 22:25] VITALS: BP 157/86; PULSE 65; RESP 16; O2SAT 92
== END 2025-08-14 22:27 | disposition home or self-care (01) ==
PROVIDERS: Emergency Provider Emergency Medicine; PCP Family Medicine
DX: S01.81XA Laceration without foreign body of other part of head, initial encounter (principal); Z79.82 Long term (current) use of aspirin; I10 Essential (primary) hypertension; W18.2XXA Fall in (into) shower or empty bathtub, initial encounter
CPT/HCPCS: 12013; 99283; J9999

== ENCOUNTER → 2025-09-16 08:35 | Outpatient (BNVA) | payer MEDICARE, MEDICAID, SELFPAY | PROVIDERS: PCP Family Medicine; Visit Provider Podiatrist Foot & Ankle Surgery | DX: I73.9 Peripheral vascular disease, unspecified (principal); B35.1 Tinea unguium; G62.9 Polyneuropathy, unspecified | CPT/HCPCS: 11721 ==